=== PATIENT | female | born 1940 | race Caucasian/White ===

== ENCOUNTER → 2020-03-04 11:25 | Outpatient (BNVA) | payer MEDICARE, SELFPAY | PROVIDERS: PCP Internal Medicine; Referring Provider Internal Medicine; Visit Provider Internal Medicine Cardiovascular Disease | DX: I25.10 Atherosclerotic heart disease of native coronary artery without angina pectoris (principal) | CPT/HCPCS: 99212 ==

== ENCOUNTER → 2020-09-16 14:27 | Outpatient (BNVA) | payer MEDICARE, SELFPAY | PROVIDERS: PCP Internal Medicine; Visit Provider Internal Medicine Cardiovascular Disease | DX: I25.10 Atherosclerotic heart disease of native coronary artery without angina pectoris (principal); I10 Essential (primary) hypertension | CPT/HCPCS: 93005; 99212 ==

== ENCOUNTER → 2021-03-30 12:47 | Outpatient (BNVA) | payer MEDICARE, SELFPAY | PROVIDERS: PCP Internal Medicine; Referring Provider Internal Medicine; Visit Provider Internal Medicine Cardiovascular Disease | DX: I25.10 Atherosclerotic heart disease of native coronary artery without angina pectoris (principal); I10 Essential (primary) hypertension | CPT/HCPCS: 99212 ==

== ENCOUNTER 2021-05-19 13:28 | Outpatient (REF) | payer MEDICARE, SELFPAY | END 2021-05-19 13:29 | disposition home or self-care (01) | LOC: HO.LAB 13:28 | PROVIDERS: PCP Internal Medicine; Visit Provider Internal Medicine | DX: Z20.822 Contact with and (suspected) exposure to COVID-19 (principal); R09.89 Other specified symptoms and signs involving the circulatory and respiratory systems | CPT/HCPCS: U0003; U0005 ==

== ENCOUNTER 2021-11-13 10:21 | Outpatient (REF) | payer MEDICARE, SELFPAY ==
[2021-11-13 13:31] LABS: MANUAL DIFF FLAG NO
[2021-11-13 13:37] LABS: Basophils Absolute Auto 0.1 X10*3/uL (0.0-0.2); Basophils Percent Auto 0.8 % (0-2); Eosinophils Absolute Auto 0.3 X10*3/uL (0.0-0.4); Hematocrit 38.4 % (37.0-47.0); Hemoglobin 12.5 g/dl (12.0-16.0); Imm Gran Abs Auto 0.02 X10*3/uL (0.00-0.03); Imm Gran Pct Auto 0.3 % (0.0-0.4); Lymphocytes Absolute Auto 1.2 X10*3/uL (1.2-4.9); Lymphocytes Percent Auto 15.7 % (20-40); Mean Corpuscular HGB Conc 32.6 g/dl (31.0-35.0); Mean Corpuscular Hemoglobin 27.8 pg (27.0-33.0); Mean Corpuscular Volume 85.5 fL (80.0-98.0); Mean Platelet Volume 10.7 fL (9.4-12.3); Monocytes Absolute Auto 0.6 X10*3/uL (0.1-1.2); Monocytes Percent Auto 7.3 % (2-11); Neutrophils Absolute Auto 5.7 x10*3/uL (2.0-8.3); Neutrophils Percent Auto 71.9 % (45-73); Platelet Count 297 X10*3/uL (160-400); Red Blood Count 4.49 X10*6/uL (4.20-5.50); Red Cell Distribution Width 13.7 % (11.0-16.0); White Blood Count 7.8 X10*3/uL (4.8-10.8)
[2021-11-13 13:56] LABS: B Type Natriuretic Peptide 220 pg/mL (<100)
[2021-11-13 13:59] LABS: Alanine Aminotransferase 13 U/L (0-31); Alkaline Phosphatase 95 U/L (39-117); Anion Gap 14 (12-20); Aspartate Amino Transferase 18 U/L (5-31); Bilirubin Total 0.9 mg/dL (0.0-1.0); Blood Urea Nitrogen 20 mg/dL (9-16); Calcium 9.6 mg/dL (8.4-10.2); Carbon Dioxide 25 mmol/L (22-29); Chloride 106 mmol/L (96-108); Cholesterol 126 mg/dL; Estimated Glomerular Filt Rate > 60; Glucose Fasting 100 mg/dL (60-99); HDL Cholesterol 48 mg/dL; LDL Cholesterol Calculated 60 mg/dl; Potassium 5.2 mmol/L (3.3-5.1); Sodium 140 mmol/L (135-145); Triglycerides 90 mg/dL
[2021-11-13 14:12] LABS: Thyroid Stimulating Hormone 2.55 uIU/mL (0.32-4.0)
== END 2021-11-13 10:22 | disposition home or self-care (01) ==
LOC: HO.WFDLDS 10:21
PROVIDERS: Nurse Practitioner Family; Visit Provider Internal Medicine
DX: Z00.00 Encounter for general adult medical examination without abnormal findings (principal); Z13.0 Encounter for screening for diseases of the blood and blood-forming organs and certain disorders involving the immune mechanism; Z13.9 Encounter for screening, unspecified; R06.02 Shortness of breath
CPT/HCPCS: 36415; 80053; 80061; 83880; 84443; 85025

== ENCOUNTER → 2021-12-15 10:16 | Outpatient (REF) | payer MEDICARE, SELFPAY ==
--- NOTE | 2021-12-15 10:19 | CA_ITS ---
Transthoracic Echocardiogram Patient (Last, First, Middle): Fabio Anaya G Gender: Female Date of : 1940 Age: 81 Procedure Date: 12/15/2021 Procedure Type: Transthoracic Echocardiogram Location: OP Height: 160.02 cm Weight: 62.6 kg BSA: 1.65 m2 Heart Rate: 53 bpm BP: 130 / 50 mmHg Chore Tender: DENNISE Referring MD: Dia Chairez PICTURE PAINTER-Rivka Symptoms: R06.02 - Shortness of breath Study Quality: Adequate ECG Rhythm: Bradycardia Conclusions: - The left ventricular systolic function is normal. The calculated ejection fraction is 64% by biplane method. - The basal inferior segment is hypokinetic. - There is mild mitral annular calcification. Findings Left Ventricle Normal left ventricular cavity size. The left ventricular systolic function is normal. The calculated ejection fraction is 64% by biplane method. E/E prime ratio is >15, consistent with elevated filling pressures. Evidence suggests grade I (mild) diastolic dysfunction. There is mild septal and mild basal asymmetric hypertrophy. Wall Motion Rest Echo Findings The basal inferior segment is hypokinetic. Right Ventricle Normal right ventricular cavity size and systolic function. Atria The left atrium is moderately dilated. The right atrium is normal in size. Aortic Valve There is a normal trileaflet aortic valve. There is no aortic valve stenosis. There is trace (trivial) aortic valve regurgitation. Mitral Valve There is mild mitral annular calcification. There is trace mitral valve regurgitation. There is no mitral valve stenosis. Pulmonic Valve The pulmonic valve is likely normal. Tricuspid Valve There is mild tricuspid valve regurgitation. There is no evidence of pulmonary hypertension. Great Vessels The asc aorta is normal in size. Small plaque is seen in the sino tubular ridge. Venous The inferior vena cava is normal in size and collapses greater than 50% with inspiration. Pericardium/Pleural There is no evidence of pericardial effusion. Prior Study Comparison Changes noted compared to prior study dated: 03/05/2016. Improved LVEF. Wall motion abnormalities improved. Measurements 2D Linear Measurements IVSd: 1.14 0.6-0.9/0.6-1.0 cm LVIDd: 3.85 3.9-5.3/4.2-5.9 cm LVIDd Index: 2.33 2.4-3.2/2.2-3.1 cm/m2 LVIDs: 2.19 2.0-3.6 cm LVPWd: 1.07 0.7-1.1 cm LA Diam: 2.90 2.7-3.8/3.0-4.0 cm LAIDs Index: 1.76 1.5-2.3 cm/m2 LV Mass: 172.10 67-162/88-224 g LV Mass Index: 104.30 43-95/49-115 g/m2 LVOT Diam: 1.90 3.0+(-)1.3 cm 2D Systolic Function EF 4C: 70.50 >55% EF 2C: 55.10 >55% EF BiP: 64.30 >55% Mitral Valve MV Pk E: 0.84 MV PK A: 1.15 MV Decel Time: 234.00 E/A: 0.70 E'Lateral: 5.66 E'Medial: 5.22 E/E' Med: 16.10 E/E' Lat: 14.80 PHT: 69.00 MVA PHT: 3.19 Decel [place]: 3.58 Aortic Valve AoV Pk Thomas: 1.50 AoV Mn Thomas: 0.99 AoV VTI: 0.37 AoV Pk Grad: 9.00 Aov Mn Grad: 4.00 IRIS Cont.VTI: 2.13 LVOT LVOT Pk Thomas: 1.15 LVOT Mn Thomas: 0.79 LVOT VTI: 0.28 LVOT Pk Grad: 5.00 LVOT Mn Grad: 3.00 LVOT Diam: 1.90 LVOT Area: 2.84 Diastolic Function MV Pk E: 0.84 MV Pk A: 1.15 E/A: 0.70 E'Medial: 5.22 E/E' Med: 16.10 E' Laterial: 5.66 E/E' Lat: 14.80 Right Ventricle TAPSE (mm): 21.20 TVS' Thomas: 11.40 Tricuspid Valve TR Pk Thomas: 2.42 TR Pk Grad: 23.00 RA Press: 3.00 RVSP: 26.00 Great Vessels Aorta Sinus of Valsalva: 3.10 2.0-3.5 cm Ao Asc: 2.90 2.1-3.4 cm Pulmonary Valve PV Pk Thomas: 0.92 Peak PV Grad: 3.00 Updated in Other Vendor System with Status of Final Aris Kruger MD electronically signed on 12/16/2021 11:32:35 AM with status of Final
== END ==
LOC: HO.CARD 10:16
PROVIDERS: Visit Provider Nurse Practitioner Family
DX: R06.02 Shortness of breath (principal); I25.10 Atherosclerotic heart disease of native coronary artery without angina pectoris; I10 Essential (primary) hypertension
CPT/HCPCS: 93306

== ENCOUNTER → 2022-04-06 10:48 | Outpatient (BNVA) | payer MEDICARE, SELFPAY | PROVIDERS: PCP Internal Medicine; Referring Provider Internal Medicine; Visit Provider Internal Medicine Cardiovascular Disease | DX: I25.10 Atherosclerotic heart disease of native coronary artery without angina pectoris (principal); R06.02 Shortness of breath; R00.1 Bradycardia, unspecified | CPT/HCPCS: 99212 ==

== ENCOUNTER 2022-12-07 13:53 | Outpatient (AMB) | payer MEDICARE, SELFPAY ==
[2022-12-07 13:57] VITALS: BP 138/50; PULSE 53; O2SAT 97; BMI 23.0
--- NOTE | 2022-12-07 13:57 | A.OFFPC_ITS ---
Vital Signs 12/07/22 13:57 Height 5 ft 3 in Weight 130 lb BMI 23.0 BP 138/50 L Blood Pressure Location Lt brachial Position Sitting Pulse 53 Pulse Source Pulse Oximeter Pulse Oximetry (%) 97 Oxygen Delivery Method Room Air Intake Visit Reasons: discuss personal matters Hand Zipper Trimmer: Not Required per policy Accompanied by: Self / Same As Patient Allergies No Known Allergies Allergy (Mild, Verified 12/07/22 13:58) NONE Medication List - Last Reconciled 12/07/22 by Oleg Juarez MD alprazolam 0.5 mg PO Q6H PRN amlodipine 5 mg PO DAILY aspirin (Adult Low Dose Aspirin) 81 mg PO DAILY atorvastatin 80 mg PO DAILY ezetimibe 10 mg PO DAILY 90 days fluticasone propionate 50 mcg/actuation (Children's Flonase Allergy Relief) 1 spray intranasal BID hydrochlorothiazide 12.5 mg PO DAILY metoprolol succinate ER 50 mg (1/2 x 100 mg) PO DAILY 90 days omeprazole 20 mg PO DAILY timolol maleate 0.5% 1 drp ophthalmic (eye) DAILY Tobacco use date assessed: 12/07/22 Fall risk assessment: 2 + Falls in past year Last assessed Fall Risk: 12/07/22 Dental Screening Dental Screen Date: 12/07/22 Did you have a dental visit in the last 12 months?: Yes Did you have a dental problem in the last 6 months where you did not have access to dental care?: No Was dental information given to patient?: Patient has dentist HPI discuss personal matters HPI Details has neuropathy both feet according to podiatry; has low back pain too PFSH Medical History Allergic rhinitis HTN (hypertension) CAD (coronary artery disease) Bilateral carotid artery disease Hyperlipidemia Surgical History Stented coronary artery Hx of cardiac cath Hx of endoscopy Hx of colonoscopy Hx of eye surgery Hx of foot surgery Family History Mother CVD (cardiovascular disease) Social History Housing: House Alcohol intake: current Alcohol intake frequency: a few times a week Patient Tobacco Use Status: Former Tobacco user Quit Date: Years Smoked: 40 +/- e-Cigarette/Vaping Use: Never Used Second Hand Smoke Exposure: No service: No Current occupational status: retired Cognitive needs: No Hearing needs: No Vision needs: No Questionnaire PHQ-9 Over the last 2 weeks, how often have you been bothered by any of the following problems? 1. Little interest or pleasure in doing things: not at all 2. Feeling down, depressed, or hopeless: not at all 3. Trouble falling or staying asleep, or sleeping too much: not at all 4. Feeling tired or having little energy: not at all 5. Poor appetite or overeating: not at all 6. Feeling bad about yourself - or that you are a failure or have let yourself or your family down: not at all 7. Trouble concentrating on things, such as reading the newspaper or watching television: not at all 8. Moving or speaking so slowly that other people could have noticed. Or the opposite - being so fidgety or restless that you have been moving around a lot more than usual: not at all 9. Thoughts that you would be better off or of hurting yourself in some way: not at all Total score: 0 Depression Screening Interpretation: Negative 85802 - PHQ-9 Billing: Yes Source: Developed by Drs. Jun Bo, Kim Coello, Zach Corral and colleagues, with an educational jameel from [employer]. Thrive Questionnaire Date Thrive assessed: 12/07/22 I am a: Patient What is your living situation today?: I have a steady place to live Within the past 12 months, did the food you bought not last and you didn't have the money to get more?: Never true Within the past 12 months, did you worry whether your food would run out before you got money to buy more?: Never true Do you have trouble paying for medicines?: No Do you have trouble getting transportation to medical appointments?: No Do you have trouble paying your heating and electricity bill?: No Do you have trouble taking care of your child, family member or friend?: No Do you have trouble with day-to-day activities such as bathing, preparing meals, shopping, managing finances, etc.?: No Are you currently unemployed and looking for a job?: No Are you interested in more education?: No Please select the resources that you would like help with: None AUDIT C Alcohol Use Questionnaire (AUDIT-C) 1. How often do you have a drink containing alcohol?: Monthly or less 2. How many drinks containing alcohol do you have on a typical day when you are drinking?: 1 or 2 3. How often do you have six or more drinks on one occasion?: Never Total Score: 1 Score Reviewed/Action Taken: Yes LAURIE-7 AMB Questionnaire LAURIE-7 Date LAURIE - 7 assessed: 12/07/22 Feeling nervous, anxious, or on edge: 0 = Not at all Not being able to stop or control worryin = Not at all Worrying too much about different things: 0 = Not at all Trouble relaxin = Not at all Being so restless that it is hard to sit still: 0 = Not at all Becoming easily annoyed or irritable: 0 = Not at all Feeling afraid as if something awful might happen: 0 = Not at all Total LAURIE-7 score (0-4 normal; 5-9 mild; 10-14 moderate; 15-21 severe): 0 Source: Developed by Drs. Jun Bo, iKm Coello, Zach Corral and colleagues, with an educational jameel from [employer]. LAURIE-7 Assessment Billing LAURIE-7 Assessment Tool: LAURIE-7 Assessment 74484 Review of Systems Const Denies chills, Denies headache(s) and Denies weight loss ENT Denies headache(s) Card Denies chest pain, Denies syncope, Denies irregular heart rhythm and Denies dyspnea Resp Denies chest congestion, Denies cough and Denies dyspnea GI Denies abdominal pain, Denies change in stool character, Denies nausea and Denies vomiting Musc Denies deformity and Denies joint swelling Neuro Denies syncope and Denies headache(s) Physical exam (Primary Care) Vital Signs: Last Vital Signs Pulse 53 12/07/22 13:57 BP 138/50 L 12/07/22 13:57 Pulse Ox 97 12/07/22 13:57 Oxygen Delivery Method Room Air 12/07/22 13:57 BMI result Body Mass Index 23.0 Tobacco/Smoking Status: Tobacco use Status Tobacco use date assessed 12/07/22 12/07/22 13:59 Patient Tobacco Use Status Former Tobacco user 12/07/22 13:59 e-Cigarette/Vaping Use Never Used 12/07/22 13:59 PHQ-9: PHQ-9 Score PHQ-9: Total score 0 12/07/22 13:59 Depression Screening Interpretation: Negative Thrive Assessment: Date of Thrive Assessment Date Thrive assessed 12/07/22 12/07/22 13:59 Const General: cooperative, comfortable, no acute distress and alert Neck Neck: Yes no lymphadenopathy Thyroid: Thyroid normal Resp Effort & Inspection: normal respiratory effort Auscultation: clear to auscultation bilaterally Percussion: percussion normal Cardio Jugular venous distension: no JVD Palpation: normal PMI Rate: regular rate Rhythm: regular rhythm Heart sounds: S1 normal heart sound present and S2 normal heart sound present GI Inspection: Yes normal to inspection Palpation (GI): No hepatosplenomegaly present Skin General skin exam: no rashes or lesions noted Extrem General: Yes no clubbing, cyanosis or edema Assessment and Plan Assessment & Plan (1) Peripheral neuropathy: Code(s): G62.9 - Polyneuropathy, unspecified Plan: labs and xr Orders: Orders Lipid Panel Today E78.5 - Hyperlipidemia, unspecified XR lumbar spine 2-3V Today M54.9 - Dorsalgia, unspecified Thyroid Stimulating Hormone Today E03.9 - Hypothyroidism, unspecified Complete Blood Count Auto Diff Today D64.9 - Anemia, unspecified Comprehensive [place]. Panel Fast Today N28.9 - Disorder of kidney and ureter, unspecified Coding Level of Care Code Est Pt Level 3 (19670) Diagnoses Peripheral neuropathy G62.9 Additional Codes LAURIE-7 Assessment Billing - LAURIE-7 Assessment Tool: LAURIE-7 Assessment 36540 ([id number])
== END 2022-12-07 14:50 | disposition home or self-care (01) ==
PROVIDERS: PCP Internal Medicine; Visit Provider Internal Medicine
DX: G62.9 Polyneuropathy, unspecified (principal)
CPT/HCPCS: 99213

== ENCOUNTER 2022-12-13 12:26 | Outpatient (REF) | payer MEDICARE, SELFPAY ==
--- NOTE | ~2022-12-13 | XR_ITS ---
EXAMINATION: XR LUMBOSACRAL SPINE CLINICAL INFORMATION: Back pain COMPARISON: None available. TECHNIQUE: Three views of the lumbosacral spine. FINDINGS: Extensive atherosclerotic calcifications in the abdominal aorta. S-shaped thoracolumbar scoliosis. Bones are diffusely demineralized. 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 Degenerative changes in the imaged lower thoracic spine. Advanced multilevel degenerative changes in the lumbar spine with loss of disc space height most notable at L3-L4, L4-L5 and L5-S1. Grade 1 anterolisthesis of L5 on S1. 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
[2022-12-13 12:42] LABS: MANUAL DIFF FLAG NO
[2022-12-13 12:48] LABS: Basophils Absolute Auto 0.1 X10*3/uL (0.0-0.2); Basophils Percent Auto 1.2 % (0-2); Eosinophils Absolute Auto 0.2 X10*3/uL (0.0-0.4); Eosinophils Percent Auto 3.6 % (0-4); Hematocrit 36.1 % (37.0-47.0); Hemoglobin 11.5 g/dl (12.0-16.0); Imm Gran Abs Auto 0.02 X10*3/uL (0.00-0.03); Imm Gran Pct Auto 0.3 % (0.0-0.4); Lymphocytes Absolute Auto 1.4 X10*3/uL (1.2-4.9); Lymphocytes Percent Auto 21.4 % (20-40); Mean Corpuscular HGB Conc 31.9 g/dl (31.0-35.0); Mean Corpuscular Hemoglobin 27.4 pg (27.0-33.0); Mean Platelet Volume 10.4 fL (9.4-12.3); Monocytes Absolute Auto 0.5 X10*3/uL (0.1-1.2); Monocytes Percent Auto 7.9 % (2-11); Neutrophils Absolute Auto 4.4 x10*3/uL (2.0-8.3); Neutrophils Percent Auto 65.6 % (45-73); Platelet Count 239 X10*3/uL (160-400); White Blood Count 6.7 X10*3/uL (4.8-10.8)
[2022-12-13 14:10] LABS: Alanine Aminotransferase 12 U/L (0-31); Albumin Level 3.9 g/dL (3.5-5.0); Alkaline Phosphatase 90 U/L (39-117); Anion Gap 11 (12-20); Aspartate Amino Transferase 19 U/L (5-31); Bilirubin Total 0.8 mg/dL (0.0-1.0); Blood Urea Nitrogen 17 mg/dL (9-16); Calcium 9.6 mg/dL (8.4-10.2); Carbon Dioxide 27 mmol/L (22-29); Chloride 107 mmol/L (96-108); Cholesterol 127 mg/dL (<200); Estimated Glomerular Filt Rate > 60; Glucose Fasting 89 mg/dL (60-99); HDL Cholesterol 54 mg/dL (>40); LDL Cholesterol Calculated 61 mg/dL (<100); Potassium 4.7 mmol/L (3.3-5.1); Sodium 140 mmol/L (135-145); Triglycerides 60 mg/dL (<150)
[2022-12-13 14:39] LABS: Thyroid Stimulating Hormone 2.56 uIU/mL (0.32-4.0)
== END 2022-12-13 12:27 | disposition home or self-care (01) ==
LOC: HO.XRAY 12:26
PROVIDERS: PCP Internal Medicine; Visit Provider Internal Medicine
DX: M54.9 Dorsalgia, unspecified (principal); E03.9 Hypothyroidism, unspecified; N28.9 Disorder of kidney and ureter, unspecified; D64.9 Anemia, unspecified; E78.5 Hyperlipidemia, unspecified
CPT/HCPCS: 36415; 72100; 80053; 80061; 84443; 85025

== ENCOUNTER 2023-01-27 10:22 | Outpatient (AMB) | payer MEDICARE, SELFPAY ==
--- NOTE | 2023-01-27 10:30 | A.OFFVIS_ITS ---
Intake Vital Signs 01/27/23 10:31 Height 5 ft 3 in Weight 136 lb 10.986 oz BMI 24.2 BP 120/76 Blood Pressure Location Lt brachial Position Sitting Pulse 66 Intake Visit Reasons: follow up per patient Intake Note: Follow-up with ekg c/o sob Manager Mass Required: No Allergies No Known Allergies Allergy (Mild, Verified 12/07/22 13:58) NONE Medication List - Last Reconciled 01/27/23 by Timmy Carr MD alprazolam 0.5 mg PO Q6H PRN amlodipine 5 mg PO DAILY aspirin (Adult Low Dose Aspirin) 81 mg PO DAILY atorvastatin 80 mg PO DAILY ezetimibe 10 mg PO DAILY 90 days fluticasone propionate 50 mcg/actuation (Children's Flonase Allergy Relief) 1 spray intranasal BID hydrochlorothiazide 12.5 mg PO DAILY meloxicam 15 mg PO DAILY metoprolol succinate ER 50 mg (1/2 x 100 mg) PO DAILY 90 days omeprazole 20 mg PO DAILY timolol maleate 0.5% 1 drp ophthalmic (eye) DAILY HPI HPI Comments History of Present Illness Details Fabio comes for follow-up. She continues to have symptoms exertional shortness of breath despite reducing metoprolol. Heart rate today is 64 at rest. She said there is no improvement symptoms. Symptoms are mostly with exertion only. She is able to only do limited work. Denies any exertional chest pain. No orthopnea, PND, leg edema. No lightheadedness, syncope. Takes all her medications. Denies any prolonged palpitations irregular heartbeat. [facility] Medical History Allergic rhinitis HTN (hypertension) CAD (coronary artery disease) Bilateral carotid artery disease Hyperlipidemia Surgical History Stented coronary artery Hx of cardiac cath Hx of endoscopy Hx of colonoscopy Hx of eye surgery Hx of foot surgery Family History Mother CVD (cardiovascular disease) Social History Housing: House Alcohol intake: current Alcohol intake frequency: a few times a week Patient Tobacco Use Status: Former Tobacco user Quit Date: Years Smoked: 40 +/- e-Cigarette/Vaping Use: Never Used Second Hand Smoke Exposure: No service: No Current occupational status: retired Cognitive needs: No Hearing needs: No Vision needs: No Review of Systems Const Denies chills, Denies fatigue, Denies fever(s), Denies frequent falls, Denies weakness, Denies weight gain and Denies weight loss ENT Denies dizziness Card Denies chest pain, Denies leg edema, Denies lightheadedness, Denies palpitations, Denies dyspnea, Denies dyspnea on exertion, Denies orthopnea and Denies other (loss of consciousness) Resp Denies cough, Denies dyspnea and Denies dyspnea on exertion GI Denies hematochezia and Denies change in stool character Musc Denies abnormal gait, Denies muscle weakness, Denies numbness, Denies radiating pain into limb and Denies tingling Neuro Denies abnormal gait, Denies dizziness, Denies frequent falls, Denies numbness, Denies tingling and Denies weakness Endo Denies fatigue and Denies palpitations Physical Exam Vital Signs: Last Vital Signs Pulse 66 01/27/23 10:31 BP 120/76 01/27/23 10:31 BMI result Body Mass Index 24.2 Const General: cooperative, comfortable, no acute distress, alert, awake and well groomed Nutritional Appearance: average body habitus Orientation/consciousness: patient oriented x3 Limitations: no limitations Neck Neck: Yes trachea midline, Yes supple and Yes no JVD Carotids: bruit bilateral Resp Effort & Inspection: normal respiratory effort Auscultation: clear to auscultation bilaterally Cardio Jugular venous distension: no JVD Palpation: normal PMI Rate: regular rate Rhythm: regular rhythm Heart sounds: S1 normal heart sound present and S2 normal heart sound present GI Auscultation: normal bowel sounds Skin General skin exam: no rashes or lesions noted and ecchymosis Neuro General: patient oriented x3 and no focal motor deficits Extrem General: No clubbing, No cyanosis and Yes pedal edema (Left lower extremity) Psych Appearance: grossly normal Office Procedures EKG Details: EKG shows normal sinus rhythm with poor R-wave progression most likely due to lead placement, no acute ST T wave changes [id number], Complete Assessment & Plan Assessment & Plan (1) Shortness of breath: Code(s): R06.02 - Shortness of breath Plan: Patient with limiting exertional shortness of breath without any signs or symptoms of heart failure. Need to rule out myocardial ischemia and would suggest a vasodilating myocardial perfusion imaging. Will also obtain echocardiogram to 12 LV systolic and diastolic function. Holter monitor to evaluate for chronotropic competence. Workup and indication for was discussed with her. S also possible this is due to advancing age and deconditioning related to reduced exercise capacity related to neuropathy and back issues. (2) CAD (coronary artery disease): Code(s): I25.10 - Atherosclerotic heart disease of [place] coronary artery without angina pectoris Plan: Diffuse atherosclerotic disease with prior CAD with multiple PCIs as well as carotid disease. Continue aggressive risk factor modification. Continue low- dose aspirin therapy for life. Blood pressure is currently well optimized. Continue the same. Continue high-intensity statin therapy along with ezetimibe therapy to target goal LDL less than 70 mg/dL. Importance of medical therapy was discussed. Follow up in the clinic in 6 months time, sooner p.r.n.. Thank you for allowing me to partake in the care Orders: Orders CA lexiscan stress w regine Today R06.02 - Shortness of breath CA echo transthoracic complete Today R06.02 - Shortness of breath ECG holter monitor 48 hour Today R06.02 - Shortness of breath Coding Level of Care Code Est Pt Level 4 (57895) Diagnoses Shortness of breath R06.02 CAD (coronary artery disease) I25.10 CPT Codes EKG - CPT: 69437-[id number], Complete ([id number])
[2023-01-27 10:31] VITALS: BP 120/76; PULSE 66; BMI 24.2
== END 2023-01-27 11:02 | disposition home or self-care (01) ==
PROVIDERS: PCP Internal Medicine; Visit Provider Internal Medicine Cardiovascular Disease
DX: R06.02 Shortness of breath (principal); I25.10 Atherosclerotic heart disease of native coronary artery without angina pectoris
CPT/HCPCS: 93010; 99214

== ENCOUNTER → 2023-01-27 10:22 | Outpatient (BNVA) | payer MEDICARE, SELFPAY | PROVIDERS: PCP Internal Medicine; Visit Provider Internal Medicine Cardiovascular Disease | DX: I25.10 Atherosclerotic heart disease of native coronary artery without angina pectoris (principal); R06.02 Shortness of breath | CPT/HCPCS: 93005; 99212 ==

== ENCOUNTER 2023-05-13 12:47 | Outpatient (AMB) | payer OTHER, SELFPAY ==
[2023-05-13 12:50] VITALS: BP 132/60; PULSE 60; O2SAT 99; BMI 24.3
--- NOTE | 2023-05-13 12:50 | MHC.PC.OV ---
Vital Signs 05/13/23 12:50 Height 5 ft 3 in Weight 137 lb BMI 24.3 BP 132/60 Blood Pressure Location Lt brachial Position Sitting Pulse 60 Pulse Source Pulse Oximeter Pulse Oximetry (%) 99 Oxygen Delivery Method Room Air Intake Visit Reasons: Follow Up Lsat Instructor Required: No Hyperion Analyst: Present Accompanied by: Spouse Allergies No Known Allergies Allergy (Mild, Verified 05/13/23 12:51) NONE Medication List - Last Reconciled 05/16/23 by Oleg Juarez MD alprazolam 0.5 mg PO Q6H PRN amlodipine 5 mg PO DAILY aspirin (Adult Low Dose Aspirin) 81 mg PO DAILY atorvastatin 80 mg PO DAILY ezetimibe 10 mg PO DAILY 90 days fluticasone propionate 50 mcg/actuation (Children's Flonase Allergy Relief) 1 spray intranasal BID hydrochlorothiazide 12.5 mg PO DAILY meloxicam 15 mg PO DAILY metoprolol succinate ER 50 mg (1/2 x 100 mg) PO DAILY 90 days omeprazole 20 mg PO DAILY sennosides (Senna Lax) 17.2 mg (2 x 8.6 mg) PO BEDTIME PRN 10 days timolol maleate 0.5% 1 drp ophthalmic (eye) DAILY Tobacco use date assessed: 05/13/23 Fall risk assessment: No Falls in past year Last assessed Fall Risk: 05/13/23 Dental Screening Dental Screen Date: 05/13/23 Did you have a dental visit in the last 12 months?: Yes Did you have a dental problem in the last 6 months where you did not have access to dental care?: No Was dental information given to patient?: Patient has dentist HPI Follow Up HPI Details HTN hyperlip and chronic anxiety; doing well and compliant [facility] Medical History Allergic rhinitis HTN (hypertension) CAD (coronary artery disease) Bilateral carotid artery disease Hyperlipidemia Surgical History Stented coronary artery Hx of cardiac cath Hx of endoscopy Hx of colonoscopy Hx of eye surgery Hx of foot surgery Family History Mother CVD (cardiovascular disease) Social History Housing: House Alcohol intake: current Alcohol intake frequency: a few times a week Patient Tobacco Use Status: Former Tobacco user Quit Date: Years Smoked: 40 +/- e-Cigarette/Vaping Use: Never Used Second Hand Smoke Exposure: No service: No Current occupational status: retired Cognitive needs: No Hearing needs: No Vision needs: No Questionnaire PHQ-9 Over the last 2 weeks, how often have you been bothered by any of the following problems? 1. Little interest or pleasure in doing things: not at all 2. Feeling down, depressed, or hopeless: not at all 3. Trouble falling or staying asleep, or sleeping too much: not at all 4. Feeling tired or having little energy: not at all 5. Poor appetite or overeating: not at all 6. Feeling bad about yourself - or that you are a failure or have let yourself or your family down: not at all 7. Trouble concentrating on things, such as reading the newspaper or watching television: not at all 8. Moving or speaking so slowly that other people could have noticed. Or the opposite - being so fidgety or restless that you have been moving around a lot more than usual: not at all 9. Thoughts that you would be better off or of hurting yourself in some way: not at all Total score: 0 Depression Screening Interpretation: Negative Depression Screening Done: Yes 24504 - PHQ-9 Billing: Yes Source: Developed by Drs. Jun Bo, Kim Coello, Zach Corral and colleagues, with an educational jameel from [employer]. Thrive Questionnaire Date Thrive assessed: 05/13/23 I am a: Patient What is your living situation today?: I have a steady place to live Within the past 12 months, did the food you bought not last and you didn't have the money to get more?: Never true Within the past 12 months, did you worry whether your food would run out before you got money to buy more?: Never true Do you have trouble paying for medicines?: No Do you have trouble getting transportation to medical appointments?: No Do you have trouble paying your heating and electricity bill?: No Do you have trouble taking care of your child, family member or friend?: No Do you have trouble with day-to-day activities such as bathing, preparing meals, shopping, managing finances, etc.?: No Are you currently unemployed and looking for a job?: No Are you interested in more education?: No Please select the resources that you would like help with: None THRIVE Score: 0 AUDIT C Alcohol Use Questionnaire (AUDIT-C) 1. How often do you have a drink containing alcohol?: Monthly or less 2. How many drinks containing alcohol do you have on a typical day when you are drinking?: 1 or 2 3. How often do you have six or more drinks on one occasion?: Never Total Score: 1 Score Reviewed/Action Taken: Yes LAURIE-7 AMB Questionnaire LAURIE-7 Date LAURIE - 7 assessed: 05/13/23 Source: Developed by Drs. Jun Bo, Kim Coello, Zach Corral and colleagues, with an educational jameel from [employer]. Review of Systems Const Denies chills, Denies headache(s) and Denies weight loss ENT Denies headache(s) Card Denies chest pain, Denies syncope, Denies irregular heart rhythm and Denies dyspnea Resp Denies chest congestion, Denies cough and Denies dyspnea GI Denies abdominal pain, Denies change in stool character, Denies nausea and Denies vomiting Musc Denies deformity and Denies joint swelling Neuro Denies syncope and Denies headache(s) Physical exam (Primary Care) Vital Signs: Last Vital Signs Pulse 60 05/13/23 12:50 BP 132/60 05/13/23 12:50 Pulse Ox 99 05/13/23 12:50 Oxygen Delivery Method Room Air 05/13/23 12:50 BMI result Body Mass Index 24.3 Tobacco/Smoking Status: Tobacco use Status Tobacco use date assessed 05/13/23 05/13/23 12:52 Patient Tobacco Use Status Former Tobacco user 05/13/23 12:52 e-Cigarette/Vaping Use Never Used 05/13/23 12:52 PHQ-9: PHQ-9 Score PHQ-9: Total score 0 05/13/23 12:52 Depression Screening Interpretation: Negative Thrive Assessment: Date of Thrive Assessment Date Thrive assessed 05/13/23 05/13/23 12:52 Const General: cooperative, comfortable, no acute distress and alert Neck Neck: Yes no lymphadenopathy Thyroid: Thyroid normal Resp Effort & Inspection: normal respiratory effort Auscultation: clear to auscultation bilaterally Percussion: percussion normal Cardio Jugular venous distension: no JVD Palpation: normal PMI Rate: regular rate Rhythm: regular rhythm Heart sounds: S1 normal heart sound present and S2 normal heart sound present GI Inspection: Yes normal to inspection Palpation (GI): No hepatosplenomegaly present Skin General skin exam: no rashes or lesions noted Extrem General: Yes no clubbing, cyanosis or edema Assessment and Plan Assessment & Plan (1) HTN (hypertension): Code(s): I10 - Essential (primary) hypertension Plan: stable; same rx (2) Hyperlipidemia: Code(s): E78.5 - Hyperlipidemia, unspecified Plan: stable; same rx (3) Anxiety: Code(s): F41.9 - Anxiety disorder, unspecified Plan: stable; same rx Orders: Orders Lipid Panel Today E78.5 - Hyperlipidemia, unspecified Comprehensive [place]. Panel Fast Today N28.9 - Disorder of kidney and ureter, unspecified Thyroid Stimulating Hormone Today E03.9 - Hypothyroidism, unspecified Coding Level of Care Code Est Pt Level 4 (27517) Diagnoses HTN (hypertension) I10 Hyperlipidemia E78.5 Anxiety F41.9
== END 2023-05-13 13:39 | disposition home or self-care (01) ==
PROVIDERS: PCP Internal Medicine; Visit Provider Internal Medicine
DX: I10 Essential (primary) hypertension (principal); E78.5 Hyperlipidemia, unspecified; F41.9 Anxiety disorder, unspecified
CPT/HCPCS: 99214

== ENCOUNTER → 2023-06-20 08:42 | Outpatient (REF) | payer MEDICARE, SELFPAY ==
--- NOTE | ~2023-06-20 | NM_ITS ---
Myocardial perfusion study Indication: Shortness of breath evaluate for myocardial ischemia Technique: The patient was brought in for a Lexiscan perfusion study on 06/20/2023. Patient performed low-level exercise and was injected 0.4 mg of Lexiscan intravenously. Within a minute of injection, 25 mCi of sestamibi was given intravenously. Images were obtained using the SPECT gamma camera interlaced with the gating device. Images were obtained in supine position. Resting perfusion study was performed on 06/30/2023. Patient was administered 25 mCi of sestamibi intravenously at rest. Images were then obtained in supine position. Images obtained with and without CT attenuation. Total DLP 108 mGy-cm Images were processed with the software and compared side to side in short axis, horizontal long axis and vertical long axis views. Findings: The stress perfusion study showed non attenuated images show normal uptake of radiotracer in all segments of LV myocardium. Attenuation corrected images show mildly reduced uptake in the apex of the LV myocardium. The gated study shows normal LV systolic function with calculated LVEF of 72%. LV cavity is normal in size. The gated study shows normal systolic wall thickening and contraction of segments. Resting study shows no change in perfusion pattern compared to stress perfusion study. Gating at rest reveals normal systolic wall motion with ejection fraction at 76%. The findings are consistent with normal myocardial perfusion. NM/NM regine perf SPECT rest & str Impression: 1. Myocardial perfusion imaging study shows normal myocardial perfusion 2. Gated LVEF is 72% 3. Transient ischemic dilatation not present EKG is nondiagnostic for ischemia
--- NOTE | 2023-06-20 08:51 | CA_ITS ---
Transthoracic Echocardiogram Patient (Last, First, Middle): Fabio Anaya G Gender: Female Date of : 1940 Age: 82 Procedure Date: 06/20/2023 Procedure Type: Transthoracic Echocardiogram Location: OP Height: 157.48 cm Weight: 58.97 kg BSA: 1.59 m2 Heart Rate: bpm BP: 118 / 60 mmHg Stapler Machine: Referring MD: Timmy Carr MD Symptoms: R06.02 - Shortness of breath Study Quality: Fair ECG Rhythm: Sinus Conclusions: - The left ventricular systolic function is normal. The calculated ejection fraction is 65% by biplane method. - Evidence suggests grade II (moderate) diastolic dysfunction. - There is moderate mitral annular calcification. - Mild pulmonary hypertension is present. Findings Left Ventricle Normal left ventricular cavity size. There is mildly increased left ventricular wall thickness. The left ventricular systolic function is normal. The calculated ejection fraction is 65% by biplane method. There is no evidence of regional wall motion abnormalities. Evidence suggests grade II (moderate) diastolic dysfunction. Right Ventricle Normal right ventricular cavity size and systolic function. Atria The left atrium is severely dilated. The right atrium is normal in size. Aortic Valve There is a normal trileaflet aortic valve. There is no aortic valve stenosis. There is trace (trivial) aortic valve regurgitation. Mitral Valve There is moderate mitral annular calcification. There is trace mitral valve regurgitation. There is no mitral valve stenosis. Pulmonic Valve The pulmonic valve is likely normal. There is trace pulmonic valve regurgitation. Tricuspid Valve Normal tricuspid valve structure. There is mild tricuspid valve regurgitation. Mild pulmonary hypertension is present. Great Vessels The asc aorta is normal in size. Venous The inferior vena cava is normal in size and collapses greater than 50% with inspiration. Pericardium/Pleural There is no evidence of pericardial effusion. Prior Study Comparison No significant change compared to prior study dated: 12/15/2021. No obvious wall motion abnormality noted. Measurements 2D Linear Measurements IVSd: 1.21 0.6-0.9/0.6-1.0 cm LVIDd: 3.99 3.9-5.3/4.2-5.9 cm LVIDd Index: 2.51 2.4-3.2/2.2-3.1 cm/m2 LVIDs: 2.45 2.0-3.6 cm LVPWd: 1.21 0.7-1.1 cm Ao Root: 2.80 2.1-3.5 cm LA Diam: 3.30 2.7-3.8/3.0-4.0 cm LAIDs Index: 2.08 1.5-2.3 cm/m2 LV Mass: 207.85 67-162/88-224 g LV Mass Index: 130.72 43-95/49-115 g/m2 LVOT Diam: 2.00 3.0+(-)1.3 cm 2D Systolic Function EF 4C: 67.30 >55% EF 2C: 62.90 >55% EF BiP: 65.10 >55% Mitral Valve MV Pk E: 0.95 MV PK A: 1.08 MV Decel Time: 187.00 E/A: 0.90 E'Lateral: 4.57 E'Medial: 5.00 E/E' Med: 18.90 E/E' Lat: 20.70 PHT: 55.00 MVA PHT: 4.00 Decel Weld: 5.07 Aortic Valve AoV Pk Thomas: 1.36 AoV Mn Thomas: 0.85 AoV VTI: 0.41 AoV Pk Grad: 7.00 Aov Mn Grad: 4.00 IRIS Cont.VTI: 1.99 LVOT LVOT Pk Thomas: 0.76 LVOT Mn Thomas: 0.52 LVOT VTI: 0.26 LVOT Pk Grad: 2.00 LVOT Mn Grad: 1.00 LVOT Diam: 2.00 LVOT Area: 3.14 Diastolic Function MV Pk E: 0.95 MV Pk A: 1.08 E/A: 0.90 E'Medial: 5.00 E/E' Med: 18.90 E' Laterial: 4.57 E/E' Lat: 20.70 Right Ventricle TAPSE (mm): 24.00 TVS' Thomas: 15.00 Tricuspid Valve TR Pk Thomas: 3.06 TR Pk Grad: 37.00 RA Press: 3.00 RVSP: 40.00 Great Vessels Aorta Ao Root-2D: 2.80 2.0-3.7 cm Ao Asc: 2.70 2.1-3.4 cm Pulmonary Valve PV Pk Thomas: 0.94 Peak PV Grad: 4.00 Updated in Other Vendor System with Status of Final Aris Kruger MD electronically signed on 06/20/2023 12:46:27 PM with status of Final
--- NOTE | 2023-06-20 08:51 | CA_ITS ---
Acquisition Time: 2023-06-20 09:50:06 Total Exercise Time: 00:02:00 Test Indications: Dyspnea Medications: SEE H Protocol: LEXISCAN Max HR: 100 BPM 72% of Pred: 138 BPM Max BP: 144/062 mmHG Max Work Load: 1.0 METS Pharmacological stress test with Lexiscan injection while sitting and kicking her legs, without anginal symptoms. with isolated PVC, with normotensive response to injection, with nondiagnoistic EKGs. Aminophylline 75mg IVP given to reverse Lexiscan. Nuclear images pending. Tets reviewed with Dr. Camacho. Referred By: Timmy Carr Overread By: Mirian Rao
== END ==
LOC: HO.CARD 08:42
PROVIDERS: PCP Internal Medicine; Visit Provider Internal Medicine Cardiovascular Disease
DX: R06.02 Shortness of breath (principal)
CPT/HCPCS: 78452; 93017; 93306; A9500; J0280; J2785

== ENCOUNTER → 2023-06-20 08:51 | Outpatient (BNV) | payer MEDICARE, SELFPAY | PROVIDERS: PCP Internal Medicine; Visit Provider Internal Medicine | DX: R06.02 Shortness of breath (principal) | CPT/HCPCS: 78452; 93016; 93018; 93350 ==

== ENCOUNTER 2023-07-27 10:53 | Outpatient (AMB) | payer MEDICARE, SELFPAY ==
--- NOTE | 2023-07-27 11:15 | MHC.PC.OV ---
Intake Visit Reasons: constipation, cramping, liquid stool Allergies No Known Allergies Allergy (Mild, Verified 05/13/23 12:51) NONE Tobacco use date assessed: 05/13/23 Dental Screening Dental Screen Date: 05/13/23 [facility] Medical History Allergic rhinitis HTN (hypertension) CAD (coronary artery disease) Bilateral carotid artery disease Hyperlipidemia Surgical History Stented coronary artery Hx of cardiac cath Hx of endoscopy Hx of colonoscopy Hx of eye surgery Hx of foot surgery Family History Mother CVD (cardiovascular disease) Social History Housing: House Alcohol intake: current Alcohol intake frequency: a few times a week Patient Tobacco Use Status: Former Tobacco user Quit Date: Years Smoked: 40 +/- e-Cigarette/Vaping Use: Never Used Second Hand Smoke Exposure: No service: No Current occupational status: retired Cognitive needs: No Hearing needs: No Vision needs: No Questionnaire Thrive Questionnaire Date Thrive assessed: 05/13/23 LAURIE-7 AMB Questionnaire LAURIE-7 Date LAURIE - 7 assessed: 05/13/23 Source: Developed by Drs. Jun Bo, Kim Coello, Zach Corral and colleagues, with an educational jameel from [employer]. Physical exam (Primary Care) Tobacco/Smoking Status: Tobacco use Status Tobacco use date assessed 05/13/23 05/13/23 12:52 Patient Tobacco Use Status Former Tobacco user 05/13/23 12:52 e-Cigarette/Vaping Use Never Used 05/13/23 12:52 Thrive Assessment: Date of Thrive Assessment Date Thrive assessed 05/13/23 05/13/23 12:52 Coding
--- NOTE | 2023-07-27 11:17 | MHC.OFFWIV ---
Intake Vital Signs 07/27/23 11:22 Height 5 ft 3 in Weight 132 lb 4 oz BMI 23.4 BP 108/58 L Blood Pressure Location Lt brachial Position Sitting Respiration 16 Pulse 58 Pulse Source Pulse Oximeter Temp 97.8 F Temp Source Oral Pulse Oximetry (%) 96 Intake Visit Reasons: constipation, cramping, liquid stool Intake Note: Constipation, liquid stool, abdominal cramps. Ongoing since February 2023 Patient Tobacco Use Status: Former Tobacco user Quit Date: Post menopausal: Yes Followed by:: Oleg Juarez Allergies No Known Allergies Allergy (Mild, Verified 07/27/23 11:17) NONE Medication List - Last Reconciled 07/27/23 by Debra Locke PA-C alprazolam 0.5 mg PO Q6H PRN amlodipine 5 mg PO DAILY aspirin (Adult Low Dose Aspirin) 81 mg PO DAILY atorvastatin 80 mg PO DAILY ezetimibe 10 mg PO DAILY 90 days hydrochlorothiazide 12.5 mg PO DAILY meloxicam 15 mg PO DAILY metoprolol succinate ER 50 mg (1/2 x 100 mg) PO DAILY 90 days omeprazole 20 mg PO DAILY psyllium husk (Metamucil) 0.4 grams PO BEDTIME timolol maleate 0.5% 1 drp ophthalmic (eye) DAILY Do you need a note to return to daycare/school/sports/work: No HPI constipation, cramping, liquid stool HPI Details Patient is an 82-year-old female with a significant past medical history of hypertension, hyperlipidemia, GERD and anxiety presenting today with complaints abdominal discomfort. She states that this has been going since February. She has followed up with her PCP and was last seen in April. She states starting in February she has been having fecal incontinence. She states that she will have constipation but then episodes of stool that is liquid and formed. She states it feels like there is a blockage in her lower colon. She states that she will feel the sensation like she has to go and need to immediately or will have incontinence. She states that sometimes she does not even realize she was incontinent. She is getting abdominal pain and cramping with these bowel movement. She has had 4 bowel movements today. She denies any pain currently. No fever, weight changes, n/v. No blood in the stool. Does report some urinary hesitancy which is new for her since this all started. States that she feels like she has to urinate but only a small amount will come out. This is not all the time but it is pretty frequent. She denies any incontinence, dysuria, malodorous urine. No back pain, paresthesias in the legs, weakness, saddle paresthesias. No back trauma or surgery. No change in gait. She used to follow with Dr. Pitts and was seen July 06 and started on metamucil twice a day, miralax daily, and dicyclomine prn. She denies any abdominal surgeries. Denies any recent travel or antibiotics. No history or family history of colorectal cancer. Unknown last colonoscopy. [facility] Medical History Allergic rhinitis HTN (hypertension) CAD (coronary artery disease) Bilateral carotid artery disease Hyperlipidemia Surgical History Stented coronary artery Hx of cardiac cath Hx of endoscopy Hx of colonoscopy Hx of eye surgery Hx of foot surgery Family History Mother CVD (cardiovascular disease) Social History Housing: House Alcohol intake: current Alcohol intake frequency: a few times a week Patient Tobacco Use Status: Former Tobacco user Quit Date: Years Smoked: 40 +/- e-Cigarette/Vaping Use: Never Used Second Hand Smoke Exposure: No service: No Current occupational status: retired Cognitive needs: No Hearing needs: No Vision needs: No Physical Exam Vital Signs: Last Vital Signs Temp 97.8 F 07/27/23 11:22 Pulse 58 07/27/23 11:22 Resp 16 07/27/23 11:22 BP 108/58 L 07/27/23 11:22 Pulse Ox 96 07/27/23 11:22 BMI result Body Mass Index 23.4 Const Orientation/consciousness: patient oriented x3 HEENT Ears: hearing grossly normal bilaterally Neck Thyroid: Thyroid normal Lymphatic: no lymphadenopathy noted Resp Auscultation: clear to auscultation bilaterally Cardio Rate: regular rate Rhythm: regular rhythm Heart sounds: S1 normal heart sound present and S2 normal heart sound present GI Inspection: Yes normal to inspection Palpation (GI): Soft to palpation and Other GI palpation findings present (nontender, no cva tenderness) Auscultation: normoactive bowel sounds Rectal Exam - Female: deferred (Declined) General: Yes CVA tenderness Back/Spine/Pelvis Back: CVA tenderness Thoracic/Lumbar Spine: thoracic and lumbar spine normal to inspection and straight leg raise negative bilaterally Skin General skin exam: no rashes or lesions noted Neuro General: patient oriented x3, gait normal and no focal motor deficits Motor exam (neuro): 5/5 motor strength present throughout Assessment & Plan Assessment & Plan (1) Lower abdominal pain: Code(s): R10.30 - Lower abdominal pain, unspecified Plan: Abdominal exam today is benign. Labs ordered today. CT abdomen and pelvis ordered. Advised patient to follow up with GI and her PCP. Advised to follow up sooner if anything worsens or changes. Warning signs of abdominal pain that would require emergent medical treatment were discussed. (2) Change in stool: Code(s): R19.5 - Other fecal abnormalities Plan: See above (3) Urinary hesitancy: Code(s): R39.11 - Hesitancy of micturition Plan: See above Orders: Orders Complete Blood Count Auto Diff Today R10.30 - Lower abdominal pain, unspecified, R19.5 - Other fecal abnormalities, R39.11 - Hesitancy of micturition Comprehensive [place]. Panel Fast Today R10.30 - Lower abdominal pain, unspecified, R19.5 - Other fecal abnormalities, R39.11 - Hesitancy of micturition UA CC w/rflx Micro + Cult Today R10.30 - Lower abdominal pain, unspecified, R19.5 - Other fecal abnormalities, R39.11 - Hesitancy of micturition TSH reflex Free T4 Today R10.30 - Lower abdominal pain, unspecified, R19.5 - Other fecal abnormalities, R39.11 - Hesitancy of micturition CT abdomen pelvis wo/w IV con Today R10.30 - Lower abdominal pain, unspecified, R19.5 - Other fecal abnormalities, R39.11 - Hesitancy of micturition Coding Level of Care Code Est Pt Level 4 (78346) Diagnoses Lower abdominal pain R10.30 Change in stool R19.5 Urinary hesitancy R39.11
[2023-07-27 11:22] VITALS: BP 108/58; PULSE 58; RESP 16; TEMP 36.6; O2SAT 96; BMI 23.4
== END 2023-07-27 11:59 | disposition home or self-care (01) ==
PROVIDERS: PCP Internal Medicine; Visit Provider Physician Assistant
DX: R10.30 Lower abdominal pain, unspecified (principal); R19.5 Other fecal abnormalities; R39.11 Hesitancy of micturition
CPT/HCPCS: 99214

== ENCOUNTER 2023-07-27 12:05 | Outpatient (REF) | payer MEDICARE, SELFPAY ==
[2023-07-27 14:34] LABS: MANUAL DIFF FLAG NO
[2023-07-27 14:43] LABS: Basophils Absolute Auto 0.1 X10*3/uL (0.0-0.2); Basophils Percent Auto 0.8 % (0-2); Eosinophils Absolute Auto 0.3 X10*3/uL (0.0-0.4); Eosinophils Percent Auto 3.5 % (0-4); Hematocrit 37.1 % (37.0-47.0); Imm Gran Abs Auto 0.03 X10*3/uL (0.00-0.03); Imm Gran Pct Auto 0.3 % (0.0-0.4); Lymphocytes Absolute Auto 1.7 X10*3/uL (1.2-4.9); Lymphocytes Percent Auto 18.6 % (20-40); Mean Corpuscular HGB Conc 32.3 g/dl (31.0-35.0); Mean Corpuscular Hemoglobin 27.3 pg (27.0-33.0); Mean Corpuscular Volume 84.5 fL (80.0-98.0); Mean Platelet Volume 10.7 fL (9.4-12.3); Monocytes Absolute Auto 0.5 X10*3/uL (0.1-1.2); Monocytes Percent Auto 6.1 % (2-11); Neutrophils Absolute Auto 6.3 x10*3/uL (2.0-8.3); Neutrophils Percent Auto 70.7 % (45-73); Platelet Count 325 X10*3/uL (160-400); Red Blood Count 4.39 X10*6/uL (4.20-5.50); Red Cell Distribution Width 14.5 % (11.0-16.0); White Blood Count 8.9 X10*3/uL (4.8-10.8)
[2023-07-27 15:34] LABS: Alanine Aminotransferase 11 U/L (0-31); Albumin Level 4.2 g/dL (3.5-5.0); Alkaline Phosphatase 85 U/L (39-117); Anion Gap 12 (12-20); Aspartate Amino Transferase 17 U/L (5-31); Bilirubin Total 0.5 mg/dL (0.0-1.0); Blood Urea Nitrogen 16 mg/dL (9-16); Calcium 9.5 mg/dL (8.4-10.2); Carbon Dioxide 26 mmol/L (22-29); Chloride 106 mmol/L (96-108); Cholesterol 129 mg/dL (<200); Estimated Glomerular Filt Rate > 60; Glucose Fasting 98 mg/dL (60-99); HDL Cholesterol 46 mg/dL (>40); LDL Cholesterol Calculated 67 mg/dL (<100); Potassium 4.2 mmol/L (3.3-5.1); Sodium 140 mmol/L (135-145); Total Protein 7.4 g/dL (6.5-8.0); Triglycerides 81 mg/dL (<150)
[2023-07-27 15:36] LABS: TSH reflex Free T4 2.65 uIU/mL (0.32-4.0)
== END 2023-07-27 12:06 | disposition home or self-care (01) ==
LOC: HO.WFDLDS 12:05
PROVIDERS: Referring Provider Physician Assistant; Visit Provider Internal Medicine
DX: E78.5 Hyperlipidemia, unspecified (principal); N28.9 Disorder of kidney and ureter, unspecified; E03.9 Hypothyroidism, unspecified; R10.30 Lower abdominal pain, unspecified; R19.5 Other fecal abnormalities; R39.11 Hesitancy of micturition
CPT/HCPCS: 36415; 80053; 80061; 84443; 85025

== ENCOUNTER 2023-08-24 10:04 | Outpatient (REF) | payer MEDICARE, SELFPAY ==
[2023-08-24 12:41] LABS: Alanine Aminotransferase 10 U/L (0-31); Albumin Level 4.2 g/dL (3.5-5.0); Alkaline Phosphatase 95 U/L (39-117); Anion Gap 12 (12-20); Aspartate Amino Transferase 16 U/L (5-31); Bilirubin Total 0.5 mg/dL (0.0-1.0); Blood Urea Nitrogen 16 mg/dL (9-16); Calcium 9.7 mg/dL (8.4-10.2); Carbon Dioxide 28 mmol/L (22-29); Chloride 106 mmol/L (96-108); Estimated Glomerular Filt Rate > 60; Glucose Fasting 102 mg/dL (60-99); Potassium 4.5 mmol/L (3.3-5.1); Sodium 141 mmol/L (135-145); Total Protein 7.4 g/dL (6.5-8.0)
== END 2023-08-24 10:05 | disposition home or self-care (01) ==
LOC: HO.WFDLDS 10:04
PROVIDERS: Visit Provider Physician Assistant
DX: R10.30 Lower abdominal pain, unspecified (principal); R19.5 Other fecal abnormalities; R39.11 Hesitancy of micturition
CPT/HCPCS: 36415; 80053

== ENCOUNTER 2023-08-30 14:55 | Outpatient (AMB) | payer MEDICARE, SELFPAY ==
--- NOTE | 2023-08-30 15:06 | MHC.OFFVIS ---
Vital Signs 08/30/23 15:07 Height 5 ft 3 in Weight 130 lb 1.164 oz BMI 23.0 BP 110/70 Blood Pressure Location Lt brachial Position Sitting Pulse 64 Intake Visit Reasons: 6 mth fu Intake Note: 6 month follow-up after stress test no energy Vp Publisher Development Required: No Allergies No Known Allergies Allergy (Mild, Verified 07/27/23 11:17) NONE Medication List - Last Reconciled 08/30/23 by Timmy Carr MD alprazolam 0.5 mg PO Q6H PRN amlodipine 5 mg PO DAILY aspirin (Adult Low Dose Aspirin) 81 mg PO DAILY atorvastatin 80 mg PO DAILY ezetimibe 10 mg PO DAILY 90 days hydrochlorothiazide 12.5 mg PO DAILY meloxicam 15 mg PO DAILY metoprolol succinate ER 50 mg (1/2 x 100 mg) PO DAILY 90 days omeprazole 20 mg PO DAILY psyllium husk (Metamucil) 0.4 grams PO BEDTIME timolol maleate 0.5% 1 drp ophthalmic (eye) DAILY HPI Comments Details: Fabio comes for follow up after testing. She continues to have exertional SOB. No orthopnea, PND, leg edema. No chest pain. No palpitations, lightheadedness or LOC. LDL is well controlled. MIBI was within normal limits. Echo shows normal LV systolic function with grade II diastolic dysfunction PFSH Medical History Allergic rhinitis HTN (hypertension) CAD (coronary artery disease) Bilateral carotid artery disease Hyperlipidemia Surgical History Stented coronary artery Hx of cardiac cath Hx of endoscopy Hx of colonoscopy Hx of eye surgery Hx of foot surgery Family History Mother CVD (cardiovascular disease) Social History Housing: House Alcohol intake: current Alcohol intake frequency: a few times a week Patient Tobacco Use Status: Former Tobacco user Years Smoked: 40 +/- e-Cigarette/Vaping Use: Never Used Second Hand Smoke Exposure: No service: No Current occupational status: retired Cognitive needs: No Hearing needs: No Vision needs: No Review of Systems Const Denies chills, Denies fatigue, Denies fever(s), Denies frequent falls, Denies weakness, Denies weight gain and Denies weight loss ENT Denies dizziness Card Denies chest pain, Denies leg edema, Denies lightheadedness, Denies palpitations, Denies dyspnea, Denies dyspnea on exertion, Denies orthopnea and Denies other (loss of consciousness) Resp Denies cough, Denies dyspnea and Denies dyspnea on exertion GI Denies hematochezia and Denies change in stool character Musc Denies abnormal gait, Denies muscle weakness, Denies numbness, Denies radiating pain into limb and Denies tingling Neuro Denies abnormal gait, Denies dizziness, Denies frequent falls, Denies numbness, Denies tingling and Denies weakness Endo Denies fatigue and Denies palpitations Physical Exam Vital Signs: Last Vital Signs Pulse 64 08/30/23 15:07 BP 110/70 08/30/23 15:07 BMI result Body Mass Index 23.0 Const General: cooperative, comfortable, no acute distress, alert, awake and well groomed Nutritional Appearance: average body habitus Orientation/consciousness: patient oriented x3 Limitations: no limitations Neck Neck: Yes trachea midline, Yes supple and Yes no JVD Carotids: bruit bilateral Resp Effort & Inspection: normal respiratory effort Auscultation: clear to auscultation bilaterally Cardio Jugular venous distension: no JVD Palpation: normal PMI Rate: regular rate Rhythm: regular rhythm Heart sounds: S1 normal heart sound present and S2 normal heart sound present GI Auscultation: normal bowel sounds Skin General skin exam: no rashes or lesions noted and ecchymosis Neuro General: patient oriented x3 and no focal motor deficits Extrem General: No clubbing, No cyanosis and Yes pedal edema (Left lower extremity) Psych Appearance: grossly normal Assessment & Plan Assessment & Plan (1) CAD (coronary artery disease): Code(s): I25.10 - Atherosclerotic heart disease of [place] coronary artery without angina pectoris Category: Medical Plan: Diffuse vascular disease with prior CAD and PCI with no ischemia of recent perfusion study. SOB related to diastolic dysfunction without evidence of ischemia. Continue aspirin therapy for life. Continue aggressive RFM. LDL is well optimized. Continue high intensity statin therapy. Conitnue aggressive BP control. (2) HTN (hypertension): Code(s): I10 - Essential (primary) hypertension Category: Medical Plan: BP is currently well optimized. Conintue current therapy. Advise to monnitor BP at home. Target golad BP at less than 130/84. Low salt diet recommended. Importance of management of BP was discussed. Will follow up in 6 months. Orders: Orders Cardiac Cath VISHAL Diagnostic 7 Weeks R06.02 - Shortness of breath Coding Level of Care Code Est Pt Level 4 (50172) Diagnoses CAD (coronary artery disease) I25.10 HTN (hypertension) I10
[2023-08-30 15:07] VITALS: BP 110/70; PULSE 64; BMI 23.0
== END 2023-08-30 15:47 | disposition home or self-care (01) ==
PROVIDERS: PCP Internal Medicine; Visit Provider Internal Medicine Cardiovascular Disease
DX: I25.10 Atherosclerotic heart disease of native coronary artery without angina pectoris (principal); I10 Essential (primary) hypertension
CPT/HCPCS: 99214

== ENCOUNTER → 2023-08-30 14:55 | Outpatient (BNVA) | payer MEDICARE, SELFPAY | PROVIDERS: PCP Internal Medicine; Visit Provider Internal Medicine Cardiovascular Disease | DX: I25.10 Atherosclerotic heart disease of native coronary artery without angina pectoris (principal); I10 Essential (primary) hypertension; Z79.82 Long term (current) use of aspirin; Z79.899 Other long term (current) drug therapy | CPT/HCPCS: 99212 ==

== ENCOUNTER 2023-09-05 14:37 | Outpatient (AMB) | payer MEDICARE, SELFPAY ==
[2023-09-05 14:41] VITALS: BP 104/60; PULSE 55; O2SAT 99; BMI 23.0
--- NOTE | 2023-09-05 14:41 | A.OFFPC_ITS ---
Vital Signs 09/05/23 14:41 Height 5 ft 3 in Weight 130 lb BMI 23.0 BP 104/60 Blood Pressure Location Lt brachial Position Sitting Pulse 55 Pulse Source Pulse Oximeter Pulse Oximetry (%) 99 Oxygen Delivery Method Room Air Intake Visit Reasons: gi issues [employer] Infrastructure Consultant Required: No Practice Managers: Not Required per policy Accompanied by: Self / Same As Patient Allergies No Known Allergies Allergy (Mild, Verified 09/05/23 14:41) NONE Medication List - Last Reconciled 09/06/23 by Oleg Juarez MD alprazolam 0.5 mg PO Q6H PRN amlodipine 5 mg PO DAILY aspirin (Adult Low Dose Aspirin) 81 mg PO DAILY atorvastatin 80 mg PO DAILY dicyclomine mg PO ezetimibe 10 mg PO DAILY 90 days hydrochlorothiazide 12.5 mg PO DAILY lactulose 20 grams (30 mL) PO BID meloxicam 15 mg PO DAILY metoprolol succinate ER 50 mg (1/2 x 100 mg) PO DAILY 90 days omeprazole 20 mg PO DAILY psyllium husk (Metamucil) 0.4 grams PO BEDTIME timolol maleate 0.5% 1 drp ophthalmic (eye) DAILY Tobacco use date assessed: 05/13/23 Fall risk assessment: No Falls in past year Last assessed Fall Risk: 09/05/23 Dental Screening Dental Screen Date: 05/13/23 HPI gi issues HPI Details has chronic constipation and seeing gi PFSH Medical History Allergic rhinitis HTN (hypertension) CAD (coronary artery disease) Bilateral carotid artery disease Hyperlipidemia Surgical History Stented coronary artery Hx of cardiac cath Hx of endoscopy Hx of colonoscopy Hx of eye surgery Hx of foot surgery Family History Mother CVD (cardiovascular disease) Social History Housing: House Alcohol intake: current Alcohol intake frequency: a few times a week Patient Tobacco Use Status: Former Tobacco user Years Smoked: 40 +/- e-Cigarette/Vaping Use: Never Used Second Hand Smoke Exposure: No service: No Current occupational status: retired Cognitive needs: No Hearing needs: No Vision needs: No Questionnaire Thrive Questionnaire Date Thrive assessed: 05/13/23 LAURIE-7 AMB Questionnaire LAURIE-7 Date LAURIE - 7 assessed: 05/13/23 Source: Developed by Drs. Jun Bo, Kim Coello, Zach Corral and colleagues, with an educational jameel from [employer]. Review of Systems Const Denies chills, Denies headache(s) and Denies weight loss ENT Denies headache(s) Card Denies chest pain, Denies syncope, Denies irregular heart rhythm and Denies dyspnea Resp Denies chest congestion, Denies cough and Denies dyspnea GI Denies abdominal pain, Denies nausea and Denies vomiting Musc Denies deformity and Denies joint swelling Neuro Denies syncope and Denies headache(s) Physical exam (Primary Care) Vital Signs: Last Vital Signs Pulse 55 09/05/23 14:41 BP 104/60 09/05/23 14:41 Pulse Ox 99 09/05/23 14:41 Oxygen Delivery Method Room Air 09/05/23 14:41 BMI result Body Mass Index 23.0 Tobacco/Smoking Status: Tobacco use Status Tobacco use date assessed 05/13/23 09/05/23 14:47 Patient Tobacco Use Status Former Tobacco user 09/05/23 14:47 e-Cigarette/Vaping Use Never Used 09/05/23 14:47 Thrive Assessment: Date of Thrive Assessment Date Thrive assessed 05/13/23 09/05/23 14:47 Const General: cooperative, comfortable, no acute distress and alert Neck Neck: Yes no lymphadenopathy Thyroid: Thyroid normal Resp Effort & Inspection: normal respiratory effort Auscultation: clear to auscultation bilaterally Percussion: percussion normal Cardio Jugular venous distension: no JVD Palpation: normal PMI Rate: regular rate Rhythm: regular rhythm Heart sounds: S1 normal heart sound present and S2 normal heart sound present GI Inspection: Yes normal to inspection Palpation (GI): No hepatosplenomegaly present Skin General skin exam: no rashes or lesions noted Extrem General: Yes no clubbing, cyanosis or edema Assessment and Plan Assessment & Plan (1) Constipation: Code(s): K59.00 - Constipation, unspecified Plan: lactulose added Medications: New lactulose 20 grams (30 mL) PO BID 1,200 mL 0RF Coding Level of Care Code Est Pt Level 3 (19315) Diagnoses Constipation K59.00
== END 2023-09-05 15:02 | disposition home or self-care (01) ==
PROVIDERS: PCP Internal Medicine; Visit Provider Internal Medicine
DX: K59.00 Constipation, unspecified (principal)
CPT/HCPCS: 99213

== ENCOUNTER 2023-09-30 09:17 | Outpatient (REF) | payer MEDICARE, SELFPAY ==
[2023-09-30 11:33] LABS: Appearance Urine Turbid; Color Urine Dark Yellow; Glucose Urine UA Negative (Negative); Leukocyte Esterase Urine Large (3+) (Negative); Nitrite Urine Negative (Negative); PH 6.5 (5.0-9.0); UMIC TRIGGER UACC YES; Urine Blood Negative (Negative); Urine Ketones Trace mg/dL (Negative); Urine Protein Trace mg/dL (Neg-Trace)
[2023-09-30 11:36] LABS: Anion Gap 11 (12-20); Blood Urea Nitrogen 16 mg/dL (9-16); Calcium 9.2 mg/dL (8.4-10.2); Carbon Dioxide 27 mmol/L (22-29); Chloride 106 mmol/L (96-108); Estimated Glomerular Filt Rate > 60; Glucose Random 94 mg/dL (60-115); Potassium 4.4 mmol/L (3.3-5.1); Sodium 140 mmol/L (135-145)
[2023-09-30 11:43] LABS: Bacteria Urine 4+ (None Seen); Granular Casts Urine Present; Hyaline Casts Urine >20 /LPF (0-2); RBC Urine 0-2 /HPF (0-2); UACC Culture Trigger YES
== END 2023-09-30 09:18 | disposition home or self-care (01) ==
LOC: HO.WFDLDS 09:17
PROVIDERS: Physician Assistant; Visit Provider Internal Medicine
DX: R10.30 Lower abdominal pain, unspecified (principal); I10 Essential (primary) hypertension
CPT/HCPCS: 36415; 80048; 81001; 87086; 87088; 87186

== ENCOUNTER 2023-10-03 15:44 | Outpatient (REF) | payer MEDICARE, SELFPAY ==
--- NOTE | ~2023-10-03 | CT_ITS ---
EXAMINATION: CT ABDOMEN AND PELVIS WITHOUT AND WITH CONTRAST CLINICAL INFORMATION: Hesitancy of micturition COMPARISON: 08/07/2015 TECHNIQUE: Multidetector volumetric imaging was performed of the abdomen and pelvis before and after the IV administration of 85 mL of Omnipaque 300 intravenous contrast. Sagittal and coronal reformatted images were obtained on the technologist's workstation. This CT examination was performed using dose optimization techniques as appropriate, variously including the following: *Automated exposure control *Adjustment of mA and/or kV according to patient size (this includes techniques or standardized protocols for targeted exams where dose is matched to indication/reason for exam; i.e. extremities or head) *Use of iterative reconstruction technique DLP: 741 mGy-cm FINDINGS: LUNG BASES: Within the left lower lobe adjacent pleura there is a 4 mm nodule (image 5, series 6) which is unchanged from prior study of 08/07/2015. There is an additional 5 mm nodule within the left lower lobe which contacts the pleura which is similarly unchanged (image 4, series 6). Within the right lower lobe there are grouped micronodular opacities measuring no greater than 4 mm which may relate to airways inflammation. LIVER, GALLBLADDER, AND BILIARY TREE: The liver is normal in size, shape, and attenuation. No focal hepatic lesion or biliary ductal dilatation is present. The gallbladder is unremarkable with no evidence of radiopaque gallstones, gallbladder wall thickening, or obvious pericholecystic inflammatory changes. PANCREAS: Unremarkable SPLEEN: Unremarkable ADRENAL GLANDS: Unremarkable KIDNEYS AND URETERS: The kidneys are normal in size and enhance symmetrically. There is mild lobulation of the cortex bilaterally. There is a subcentimeter probable cyst at the upper pole of the right kidney which would not require routine radiographic follow-up. Additional subcentimeter hypodensities are seen bilaterally. No renal calculi are seen. There is no hydroureter or hydronephrosis. There is no abnormal perinephric stranding. BLADDER: The bladder is partially distended and overall normal in contour. Best visualized on the sagittal view there is a relatively low position of the bladder, uterus, and anorectal junction when compared with the pubococcygeal line which can be seen in the setting of pelvic floor relaxation/pelvic floor dysfunction. GASTROINTESTINAL TRACT: There is a moderate hiatus hernia containing much of the proximal stomach. The stomach is otherwise unremarkable. Small and large bowel are normal in course and caliber. There is a normal appendix. No bowel wall inflammatory changes are seen. There is diverticulosis of the sigmoid colon. ABDOMINAL WALL: No significant hernia is appreciated. LYMPH NODES: Normal VASCULAR: The aorta is normal in caliber. There is relatively extensive eccentric calcification of the aorta and its branch vessels. There is bulky calcific plaque of the right common iliac artery. While the study is not performed as a CT angiogram, this results in at least a moderate stenosis. Proximal femoral vessels are patent. PELVIC VISCERA: The uterus and adnexa are unremarkable. OSSEOUS STRUCTURES: There is decreased bony mineralization throughout. There is disc degenerative change throughout the imaged thoracolumbar spine and degenerative 2 mm of anterolisthesis of L5 on S1. There is facet arthropathy at multiple levels predominantly from L3 and below. There are no acute or aggressive bony abnormalities. Within the soft tissues of the right hip there is irregular lobulated calcification measures in the order of 4.7 x 2.5 cm which could relate to an old soft tissue injury. CT/CT abdomen pelvis wo/w IV con IMPRESSION: There are no acute findings in the abdomen or pelvis. On sagittal view there is a low position of pelvic floor structures that can be seen in the setting of pelvic floor relaxation/pelvic floor dysfunction. Left lower lobe pulmonary nodules which measure no greater than 5 mm are unchanged from prior studies dating to 08/07/2015. There are a few micronodular opacities within the right lower lobe, the appearance of which is suggestive of postinflammatory process. According to the UPDATED 2017 Fleischner Society recommendations, the advised follow-up imaging for multiple subsolid nodules, the largest of which measures <6 mm, is: CT at 3-6 months. If stable, consider CT at 2 and 4 years. However, the patient has not had a diagnostic chest CT and CT of the chest could be considered if warranted. Bulky calcific plaque of the right common iliac artery which results in at least some degree of stenosis. Would correlate for symptoms of claudication. Fleischner guidelines were followed.
[2023-10-03] MEDS: Barium Sulfate Oral (Berry) 450 ML ORAL.SUSP 900 ML PO (17:51)
[2023-10-03] MEDS: iohexoL 350 MG/ML 100 ML INFUS..BTL 85 ML IV (18:02)
== END 2023-10-03 15:45 | disposition home or self-care (01) ==
LOC: HO.CT 15:44
PROVIDERS: PCP Internal Medicine; Visit Provider Physician Assistant
DX: R39.11 Hesitancy of micturition (principal); R19.5 Other fecal abnormalities; R10.30 Lower abdominal pain, unspecified
CPT/HCPCS: 74178; Q9967

== ENCOUNTER 2023-10-14 13:45 | Outpatient (AMB) | payer MEDICARE, SELFPAY ==
--- NOTE | 2023-10-14 13:47 | A.OFFPC_ITS ---
Vital Signs 10/14/23 14:07 Height 5 ft 3 in Weight 130 lb 8 oz BMI 23.1 BP 134/85 Blood Pressure Location Lt brachial Position Sitting Respiration 14 Pulse 53 Pulse Source Pulse Oximeter Temp 97.2 F Temp Source Temporal Artery Scan Pulse Oximetry (%) 99 Oxygen Delivery Method Room Air Intake Visit Reasons: MAXIMILIANO from [place] Intake Note: Patient is here to establish care with [facility]. 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 Manager Required: No Allergies No Known Allergies Allergy (Mild, Verified 09/05/23 14:41) NONE Medication List - Last Reconciled 10/16/23 by Felicita Odonnell MD alprazolam 0.5 mg PO Q6H PRN amlodipine 5 mg PO DAILY aspirin (Adult Low Dose Aspirin) 81 mg PO DAILY atorvastatin 80 mg PO DAILY ezetimibe 10 mg PO DAILY 90 days hydrochlorothiazide 12.5 mg PO DAILY lactulose 20 grams (30 mL) PO BID linaclotide (Linzess) 145 mcg PO DAILY 90 days meloxicam 15 mg PO DAILY metoprolol succinate ER 50 mg (1/2 x 100 mg) PO DAILY 90 days omeprazole 20 mg PO DAILY timolol maleate 0.5% 1 drp ophthalmic (eye) DAILY Tobacco use date assessed: 05/13/23 Dental Screening Dental Screen Date: 05/13/23 HPI HPI Comments History of Present Illness Details The patient is a 82 year old female with a significant past medical history of hypertension, hyperlipidemia, GERD and anxiety presenting to [facility]. Transferring from [facility] to home She has been seen recently for a 8 month history of constipation and overflow diarrhea. Saw Dr Lee for same issue in June and has appt for Dec. She has been prescribed metamucil, miralax, bentyl and lactulose. She used the first two for 2 bottles, continues to use the bentyl. Tells me no relief from these. She did not try the lactulose yet. She is getting abdominal pain and cramping with bowel movement. Does report some urinary hesitancy which is new for her since her bowel changes started. She recently tested positive for a UTI and completed a course of macrobid. She is seeing dermatology for skin checks. Saws in the past few months seems to have developed worsening lesions on the face and chest. She has used FU cream for the past two weeks. ROS see HPI PHYSICAL EXAM: GENERAL: Alert and oriented x 3. NAD EYES: EOMI. Anicteric. HENT: Moist mucous membranes. No scleral icterus. No cervical lymphadenopathy. LUNGS: Clear to auscultation bilaterally. CARDIOVASCULAR: Regular rate and rhythm. No murmur. No JVD. ABDOMEN: Soft, non-tender +bs EXTREMITIES: No edema. Non-tender. SKIN: Scattered AKs NEUROLOGIC: No focal neurological deficits. CN II-XII grossly intact PSYCHIATRIC: Cooperative. Appropriate mood and affect [facility] Medical History Allergic rhinitis HTN (hypertension) CAD (coronary artery disease) Bilateral carotid artery disease Hyperlipidemia Surgical History Stented coronary artery Hx of cardiac cath Hx of endoscopy Hx of colonoscopy Hx of eye surgery Hx of foot surgery Family History Mother CVD (cardiovascular disease) Social History Housing: House Alcohol intake: current Alcohol intake frequency: a few times a week Patient Tobacco Use Status: Former Tobacco user Years Smoked: 40 +/- e-Cigarette/Vaping Use: Never Used Second Hand Smoke Exposure: No service: No Current occupational status: retired Cognitive needs: No Hearing needs: No Vision needs: No Questionnaire PHQ-9 Over the last 2 weeks, how often have you been bothered by any of the following problems? 1. Little interest or pleasure in doing things: not at all 2. Feeling down, depressed, or hopeless: not at all 3. Trouble falling or staying asleep, or sleeping too much: not at all 4. Feeling tired or having little energy: several days 5. Poor appetite or overeating: not at all 6. Feeling bad about yourself - or that you are a failure or have let yourself or your family down: not at all 7. Trouble concentrating on things, such as reading the newspaper or watching television: not at all 8. Moving or speaking so slowly that other people could have noticed. Or the opposite - being so fidgety or restless that you have been moving around a lot more than usual: not at all 9. Thoughts that you would be better off or of hurting yourself in some way: not at all Total score: 1 Depression Screening Interpretation: Negative (neg) Depression Screening Done: Yes 39055 - PHQ-9 Billing: Yes Source: Developed by Drs. Jun Bo, Kim Coello, Zach Corral and colleagues, with an educational jameel from [employer]. Thrive Questionnaire Date Thrive assessed: 10/14/23 I am a: Patient What is your living situation today?: I have a steady place to live Within the past 12 months, did the food you bought not last and you didn't have the money to get more?: Never true Within the past 12 months, did you worry whether your food would run out before you got money to buy more?: Never true Do you have trouble paying for medicines?: No Do you have trouble getting transportation to medical appointments?: No Do you have trouble paying your heating and electricity bill?: No Do you have trouble taking care of your child, family member or friend?: No Do you have trouble with day-to-day activities such as bathing, preparing meals, shopping, managing finances, etc.?: No Are you currently unemployed and looking for a job?: No Are you interested in more education?: No Please select the resources that you would like help with: None Currently or been in a relationship where the following occur: No concerns reported THRIVE Score: 0 AUDIT C Alcohol Use Questionnaire (AUDIT-C) 1. How often do you have a drink containing alcohol?: Monthly or less 2. How many drinks containing alcohol do you have on a typical day when you are drinking?: 1 or 2 3. How often do you have six or more drinks on one occasion?: Never Total Score: 1 LAURIE-7 AMB Questionnaire LAURIE-7 Date LAURIE - 7 assessed: 05/13/23 Feeling nervous, anxious, or on edge: 0 = Not at all Not being able to stop or control worryin = Not at all Worrying too much about different things: 0 = Not at all Trouble relaxin = Not at all Being so restless that it is hard to sit still: 0 = Not at all Becoming easily annoyed or irritable: 0 = Not at all Feeling afraid as if something awful might happen: 0 = Not at all Total LAURIE-7 score (0-4 normal; 5-9 mild; 10-14 moderate; 15-21 severe): 0 Source: Developed by Drs. Jun Bo, Kim Coello, Zach Corral and colleagues, with an educational jameel from [employer]. LAURIE-7 Assessment Billing LAURIE-7 Assessment Tool: LAURIE-7 Assessment 11155 Physical exam (Primary Care) Vital Signs: Last Vital Signs Temp 97.2 F 10/14/23 14:07 Pulse 53 10/14/23 14:07 Resp 14 10/14/23 14:07 BP 134/85 10/14/23 14:07 Pulse Ox 99 10/14/23 14:07 Oxygen Delivery Method Room Air 10/14/23 14:07 BMI result Body Mass Index 23.1 Tobacco/Smoking Status: Tobacco use Status Tobacco use date assessed 05/13/23 10/14/23 13:50 Patient Tobacco Use Status Former Tobacco user 10/14/23 13:50 e-Cigarette/Vaping Use Never Used 10/14/23 13:50 PHQ-9: PHQ-9 Score PHQ-9: Total score 1 10/16/23 09:25 Depression Screening Interpretation: Negative (neg) Thrive Assessment: Date of Thrive Assessment Date Thrive assessed 10/14/23 10/14/23 13:50 Currently or been in a relationship where the following occur: No concerns reported Assessment and Plan Assessment & Plan (1) Constipation: Code(s): K59.00 - Constipation, unspecified Qualifiers: Constipation type: unspecified constipation type Qualified Code(s): K59.00 - Constipation, unspecified Plan: Trial of moderate dose linzess if covered Will stop bentyl as she hasnt found any relief with the mediation She can use lactulose as needed-discussed how to use this medication (2) Urinary hesitancy: Code(s): R39.11 - Hesitancy of micturition Plan: Recheck urine culture Orders: Orders UA w Microscopic 10/14/23 K59.00 - Constipation, unspecified, R39.11 - Hesitancy of micturition IRON PROFILE 10/14/23 K59.00 - Constipation, unspecified, R06.02 - Shortness of breath, R19.5 - Other fecal abnormalities, R39.11 - Hesitancy of micturition Urine Culture 10/14/23 K59.00 - Constipation, unspecified, R39.11 - Hesitancy of micturition TSH reflex Free T4 10/14/23 K59.00 - Constipation, unspecified, R06.02 - Shortness of breath, R19.5 - Other fecal abnormalities, R39.11 - Hesitancy of micturition Complete Blood Count Auto Diff 10/14/23 K59.00 - Constipation, unspecified, R06.02 - Shortness of breath, R19.5 - Other fecal abnormalities, R39.11 - Hesitancy of micturition Referrals Gastroenterology Referral K59.00 - Constipation, unspecified, R19.5 - Other fecal abnormalities Medications: New linaclotide (Linzess) 145 mcg PO DAILY 90 days 90 caps 3RF Coding Level of Care Code Est Pt Level 5 (77475) Diagnoses Constipation, unspecified constipation type K59.00 Constipation type: unspecified constipation type Urinary hesitancy R39.11 Additional Codes LAURIE-7 Assessment Billing - LAURIE-7 Assessment Tool: LAURIE-7 Assessment 51367 ([id number])
[2023-10-14 14:07] VITALS: BP 134/85; PULSE 53; RESP 14; TEMP 36.2; O2SAT 99; BMI 23.1
== END 2023-10-14 15:07 | disposition home or self-care (01) ==
PROVIDERS: PCP Internal Medicine; Visit Provider Internal Medicine
DX: K59.00 Constipation, unspecified (principal); R39.11 Hesitancy of micturition
CPT/HCPCS: 99214

== ENCOUNTER 2023-10-14 15:16 | Outpatient (REF) | payer MEDICARE, SELFPAY ==
[2023-10-14 17:35] LABS: MANUAL DIFF FLAG NO
[2023-10-14 17:37] LABS: Basophils Absolute Auto 0.1 X10*3/uL (0.0-0.2); Basophils Percent Auto 1.2 % (0-2); Eosinophils Absolute Auto 0.3 X10*3/uL (0.0-0.4); Eosinophils Percent Auto 3.8 % (0-4); Hematocrit 34.2 % (37.0-47.0); Hemoglobin 10.9 g/dl (12.0-16.0); Imm Gran Abs Auto 0.02 X10*3/uL (0.00-0.03); Imm Gran Pct Auto 0.3 % (0.0-0.4); Lymphocytes Absolute Auto 1.6 X10*3/uL (1.2-4.9); Lymphocytes Percent Auto 21.7 % (20-40); Mean Corpuscular HGB Conc 31.9 g/dl (31.0-35.0); Mean Corpuscular Hemoglobin 26.6 pg (27.0-33.0); Mean Corpuscular Volume 83.4 fL (80.0-98.0); Mean Platelet Volume 10.6 fL (9.4-12.3); Monocytes Absolute Auto 0.5 X10*3/uL (0.1-1.2); Monocytes Percent Auto 6.6 % (2-11); Neutrophils Absolute Auto 4.9 x10*3/uL (2.0-8.3); Neutrophils Percent Auto 66.4 % (45-73); Platelet Count 339 X10*3/uL (160-400); Red Cell Distribution Width 14.4 % (11.0-16.0); White Blood Count 7.4 X10*3/uL (4.8-10.8)
[2023-10-14 17:53] LABS: Appearance Urine Clear; Color Urine Yellow; Glucose Urine UA Negative (Negative); Leukocyte Esterase Urine Large (3+) (Negative); Nitrite Urine Negative (Negative); PH 7.5 (5.0-9.0); UMIC TRIGGER UA YES; UMIC TRIGGER UACC YES; Urine Blood Negative (Negative); Urine Ketones Negative (Negative); Urine Protein Negative (Neg-Trace)
[2023-10-14 18:15] LABS: Bacteria Urine None Seen (None Seen); Hyaline Casts Urine 0-2 /LPF (0-2); RBC Urine 0-2 /HPF (0-2); UACC Culture Trigger YES; WBC Urine 0-5 /HPF (0-5)
[2023-10-15 01:25] LABS: Iron 33 mcg/dL (30-160); Percent Iron Saturation 9 % (15-50); Total Iron Binding Capacity 350 mcg/dL (228-428); Unsaturated Iron Binding 317 ug/dL
[2023-10-15 01:48] LABS: TSH reflex Free T4 2.66 uIU/mL (0.32-4.0)
== END 2023-10-14 15:17 | disposition home or self-care (01) ==
LOC: HO.WFDLDS 15:16
PROVIDERS: Physician Assistant; Visit Provider Internal Medicine
DX: R39.11 Hesitancy of micturition (principal); K59.00 Constipation, unspecified; R19.5 Other fecal abnormalities; R06.02 Shortness of breath; R10.30 Lower abdominal pain, unspecified
CPT/HCPCS: 36415; 81001; 83540; 84443; 85025; 87086

== ENCOUNTER 2023-12-13 13:44 | Outpatient (AMB) | payer MEDICARE, SELFPAY ==
[2023-12-13 13:47] VITALS: BP 138/54; PULSE 76; RESP 12; O2SAT 100
--- NOTE | 2023-12-13 13:47 | MHC.PC.OV ---
Vital Signs 12/13/23 13:47 Height 5 ft 3 in BMI Reason not done Patient refused/unable BP 138/54 L Blood Pressure Location Rt brachial Position Sitting Respiration 12 Pulse 76 Pulse Source Pulse Oximeter Pulse Oximetry (%) 100 Oxygen Delivery Method Room Air Intake Visit Reasons: follow up constipation Intake Note: Patient is here to follow up regarding constipation. Seat Mender Required: No Accompanied by: Spouse Allergies No Known Allergies Allergy (Mild, Verified 12/14/23 12:02) NONE Tobacco use date assessed: 05/13/23 Dental Screening Dental Screen Date: 05/13/23 HPI HPI Comments History of Present Illness Details The patient is a 82 year old female with a significant past medical history of hypertension, hyperlipidemia, GERD and anxiety presenting for follow up She has been seen recently for a 8 month history of constipation and overflow diarrhea. Saw Dr Lee for same issue in June and has appt for Dec planned. She has been prescribed metamucil, miralax, bentyl and lactulose. She used the first two for 2 bottles, continues to use the bentyl. Tells me no relief from these. She did not try the lactulose yet. She is getting abdominal pain and cramping with bowel movement. She had recent CT scan of the abdomen and pelvis without any acute pathology. It did show some non small pulmonary nodules and Bulky calcific plaque of the right common iliac artery which results in at least some degree of stenosis. Would correlate for symptoms of claudication. Patient denies increased pain with eating. She has not started the lactulose and is not in receipt of the linzess that I ordered her. She continues to suffer from the same symptoms. She is more anemic than on last check. She was able to get a GI visit slightly sooner-in November Seeing GI tomorrow at [place] for consult CTA abdomen was ordered and is scheduled for 01/10. Linzess worked sometimes did not work others. Caused urgency when working and so she has not been taking it She moved to [place] [facility] from [facility]. She was pleased with her visit there and skin is healing ROS see HPI PHYSICAL EXAM: PHYSICAL EXAM: GENERAL: Alert and oriented x 3. NAD EYES: EOMI. Anicteric. HENT: Moist mucous membranes. No scleral icterus. No cervical lymphadenopathy. LUNGS: Clear to auscultation bilaterally. CARDIOVASCULAR: Regular rate and rhythm. ABDOMEN: Soft, non-tender +bs EXTREMITIES: No edema. Non-tender. SKIN: No rashes or lesions. Warm. NEUROLOGIC: No focal neurological deficits. CN II-XII grossly intact PSYCHIATRIC: Cooperative. Appropriate mood and affect [facility] Medical History Allergic rhinitis HTN (hypertension) CAD (coronary artery disease) Bilateral carotid artery disease Hyperlipidemia Surgical History Stented coronary artery Hx of cardiac cath Hx of endoscopy Hx of colonoscopy Hx of eye surgery Hx of foot surgery Family History Mother CVD (cardiovascular disease) Social History Housing: House Alcohol intake: current Alcohol intake frequency: a few times a week Patient Tobacco Use Status: Former Tobacco user Years Smoked: 40 +/- e-Cigarette/Vaping Use: Never Used Second Hand Smoke Exposure: No service: No Current occupational status: retired Cognitive needs: No Hearing needs: No Vision needs: No Questionnaire Thrive Questionnaire Date Thrive assessed: 10/14/23 LAURIE-7 AMB Questionnaire LAURIE-7 Date LAURIE - 7 assessed: 05/13/23 Source: Developed by Drs. Jun Bo, Kim Coello, Zach Corral and colleagues, with an educational jameel from [employer]. Physical exam (Primary Care) Vital Signs: Last Vital Signs Pulse 76 12/13/23 13:47 Resp 12 12/13/23 13:47 BP 138/54 L 12/13/23 13:47 Pulse Ox 100 12/13/23 13:47 Oxygen Delivery Method Room Air 12/13/23 13:47 Tobacco/Smoking Status: Tobacco use Status Tobacco use date assessed 05/13/23 12/13/23 14:02 Patient Tobacco Use Status Former Tobacco user 12/13/23 14:02 e-Cigarette/Vaping Use Never Used 12/13/23 14:02 Thrive Assessment: Date of Thrive Assessment Date Thrive assessed 10/14/23 12/13/23 14:02 Assessment and Plan Assessment & Plan (1) Abnormal CT of the abdomen: Code(s): R93.5 - Abnormal findings on diagnostic imaging of other abdominal regions, including retroperitoneum Plan: CTA is pending Sees GI tomorrow symptoms persist but stable (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
== END 2023-12-13 14:54 | disposition home or self-care (01) ==
PROVIDERS: PCP Internal Medicine; Visit Provider Internal Medicine
DX: R93.5 Abnormal findings on diagnostic imaging of other abdominal regions, including retroperitoneum (principal); I74.5 Embolism and thrombosis of iliac artery; K59.00 Constipation, unspecified

== ENCOUNTER → 2023-12-13 13:44 | Outpatient (BNVA) | payer MEDICARE, SELFPAY | PROVIDERS: PCP Internal Medicine; Visit Provider Internal Medicine | DX: K59.00 Constipation, unspecified (principal); I74.5 Embolism and thrombosis of iliac artery; R93.5 Abnormal findings on diagnostic imaging of other abdominal regions, including retroperitoneum; K21.9 Gastro-esophageal reflux disease without esophagitis; I10 Essential (primary) hypertension; E78.5 Hyperlipidemia, unspecified | CPT/HCPCS: 99212 ==

== ENCOUNTER 2023-12-14 11:57 | Outpatient (AMB) | payer MEDICARE, SELFPAY ==
--- NOTE | 2023-12-14 11:59 | MHC.OFFVIS ---
Vital Signs 12/14/23 12:01 Height 5 ft 3 in Weight 125 lb 10.616 oz BMI 22.3 BP not taken reason Patient Refused Intake Visit Reasons: Constipation Intake Note: Fabio presents in the office as a new patient for constipation - she states that she has been having this issue for a long time. She gets pains all over her stomach and takes Linzess for the constipation. Security Systems Engineer Required: No Allergies No Known Allergies Allergy (Mild, Verified 04/10/24 14:33) NONE HPI Comments Details: 83 y.o F who is here for second opinion for constipation. Reports diffuse lower abd pain with cramping since Dec with severe constipation. Prior to this was not having abd sx and regular formed BMs. Has 1 BM per week. Has to strain considerably. No blood in BM. Does not think linzess helping much. Also take fiber and miralax as needed. Had a CT abd/pel that is suggestive of pelvic floor dysfunction. 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 Pt herself does not report any postprandial abd pain or sitophobia. [facility] Medical History Allergic rhinitis HTN (hypertension) CAD (coronary artery disease) Bilateral carotid artery disease Hyperlipidemia Surgical History Stented coronary artery Hx of cardiac cath Hx of endoscopy Hx of colonoscopy Hx of eye surgery Hx of foot surgery Family History Mother CVD (cardiovascular disease) Social History Housing: House Alcohol intake: current Alcohol intake frequency: a few times a week Patient Tobacco Use Status: Former Tobacco user Years Smoked: 40 +/- e-Cigarette/Vaping Use: Never Used Second Hand Smoke Exposure: No service: No Current occupational status: retired Cognitive needs: No Hearing needs: No Vision needs: No Review of Systems Const All systems reviewed & are unremarkable except as noted in HPI and below Physical Exam Vital Signs: BMI result Body Mass Index 22.3 No apparent distress Nonicteric Abdomen soft, nondistended Alert and oriented x3, normal gait Results Reviewed Results Reviewed: CT abd/pel 09/2023: BLADDER: The bladder is partially distended and overall normal in contour. Best visualized on the sagittal view there is a relatively low position of the bladder, uterus, and anorectal junction when compared with the pubococcygeal line which can be seen in the setting of pelvic floor relaxation/pelvic floor dysfunction. GASTROINTESTINAL TRACT: There is a moderate hiatus hernia containing much of the proximal stomach. The stomach is otherwise unremarkable. Small and large bowel are normal in course and caliber. There is a normal appendix. No bowel wall inflammatory changes are seen. There is diverticulosis of the sigmoid colon. ABDOMINAL WALL: No significant hernia is appreciated. Assessment & Plan Assessment & Plan (1) Abnormal CT of the abdomen: Code(s): R93.5 - Abnormal findings on diagnostic imaging of other abdominal regions, including retroperitoneum Category: Medical (2) Lower abdominal pain: Code(s): R10.30 - Lower abdominal pain, unspecified Category: Medical (3) Pelvic floor dysfunction: Code(s): M62.89 - Other specified disorders of muscle Category: Medical (4) Constipation: Code(s): K59.00 - Constipation, unspecified Category: Medical Qualifiers: Constipation type: unspecified constipation type Qualified Code(s): K59.00 - Constipation, unspecified (5) Change in stool: Code(s): R19.5 - Other fecal abnormalities Category: Medical Plan Constipation/change in bowel habtis Discussed with the pt that longstanding constipation likely a combination of slow transit and outlet dysfunction given findings on CT. However, since she has been having relatively new onset of L sided pain and cramping at this age, would be prudent to proceed with a diagnostic endoscopy. This is to be preferably done after she has had the CTA to ensure does not need revascularization (although low suspicion clinically) Plan: - EGD/colo to be booked - Cont metamucil, miralax and linezz - Add senna or bisacodyl 2 tabs daily in AM - Elevate legs while having BM - XR defecography for dedicated pelvic floor evaluation - pt will be referred to [facility] radiology for this - EGD/colo to be booked for change in bowel habits in this 83 y.o Follow up after scopes Orders: Orders XR defecography 12/14/23 K59.00 - Constipation, unspecified Medications: New peg 3350-electrolytes 236-22.74-6.74 -5.86 gram (Golytely) as per split prep instructions, until fecal effluent is clear 240 mL PO Q10M 4,000 mL 0RF colonoscopy Patient Instructions: - Cont metamucil and miralax - Add senna 2 tabs daily in morning 30 mins before breakfast - [facility] Radiology dept will call you to schedule the XRAY test - My office will contact you to schedule the colonoscopy Coding Level of Care Code New Pt Level 4 (64733) Complex EM visit Add On G2211 Diagnoses Ab[address] CT of the abdomen R93.5 Lower abdominal pain R10.30 Pelvic floor dysfunction M62.89 Constipation, unspecified constipation type K59.00 Constipation type: unspecified constipation type Change in stool R19.5
[2023-12-14 12:01] VITALS: BMI 22.3
== END 2023-12-14 12:30 | disposition home or self-care (01) ==
PROVIDERS: PCP Internal Medicine; Visit Provider Internal Medicine
DX: R93.5 Abnormal findings on diagnostic imaging of other abdominal regions, including retroperitoneum (principal); R10.30 Lower abdominal pain, unspecified; M62.89 Other specified disorders of muscle; K59.00 Constipation, unspecified; R19.5 Other fecal abnormalities
CPT/HCPCS: 99499

== ENCOUNTER → 2023-12-14 11:57 | Outpatient (BNVA) | payer MEDICARE, SELFPAY | PROVIDERS: PCP Internal Medicine; Visit Provider Internal Medicine ==

== ENCOUNTER 2023-12-19 09:48 | Outpatient (REF) | payer MEDICARE, SELFPAY ==
[2023-12-19 12:02] LABS: Anion Gap 9 (12-20); Blood Urea Nitrogen 17 mg/dL (9-16); Calcium 9.5 mg/dL (8.4-10.2); Carbon Dioxide 29 mmol/L (22-29); Chloride 109 mmol/L (96-108); Estimated Glomerular Filt Rate > 60; Glucose Random 103 mg/dL (60-115); Potassium 4.9 mmol/L (3.3-5.1); Sodium 142 mmol/L (135-145)
== END 2023-12-19 09:49 | disposition home or self-care (01) ==
LOC: HO.WFDLDS 09:48
PROVIDERS: Visit Provider Internal Medicine
DX: R93.5 Abnormal findings on diagnostic imaging of other abdominal regions, including retroperitoneum (principal); I74.5 Embolism and thrombosis of iliac artery
CPT/HCPCS: 36415; 80048

== ENCOUNTER 2024-01-11 09:55 | Outpatient (REF) | payer MEDICARE, SELFPAY ==
--- NOTE | ~2024-01-11 | CT_ITS ---
EXAMINATION: CT ANGIOGRAM ABDOMEN AND PELVIS CLINICAL INFORMATION: Iliac artery thrombosis COMPARISON: CT abdomen and pelvis on 10/03/2023 TECHNIQUE: Multiple axial images were obtained through the abdomen and pelvis following the administration of 100 mL of Omnipaque 350 intravenous contrast. Images were reviewed on a dedicated 3-D workstation. This CT examination was performed using dose optimization techniques as appropriate, variously including the following: *Automated exposure control *Adjustment of mA and/or kV according to patient size (this includes techniques or standardized protocols for targeted exams where dose is matched to indication/reason for exam; i.e. extremities or head) *Use of iterative reconstruction technique DLP: 262 mGy-cm FINDINGS: FINDINGS: Lower chest: Unremarkable. There are no pleural effusions. Liver: Normal in size and attenuation. No focal lesions. Gallbladder and bile ducts: The gallbladder is normal. No intrahepatic or extrahepatic biliary ductal dilatation. Spleen: Normal in size and attenuation. Pancreas: Unremarkable. Adrenal glands: Unremarkable. Right kidney: The right kidney is normal. There is no hydronephrosis or hydroureter. Left kidney: The left kidney is normal. There is no hydronephrosis or hydroureter. Lymph nodes: There is no lymphadenopathy in the abdomen or pelvis. Gastrointestinal tract: Moderate hiatal hernia The stomach, small, and large bowel are normal in course and caliber. Colonic diverticulosis is noted. Urinary bladder: Decompressed. Pelvic organs: The uterus is atrophic. Vasculature: The abdominal aorta normal in caliber. There is moderate atherosclerotic disease. The celiac artery, SMA, and YAMILETH are patent. There is moderate atherosclerotic disease at the origin of the bilateral renal arteries. There is moderate stenosis of the proximal right common iliac artery secondary to mixed calcific and noncalcific atherosclerotic disease. There is mild stenosis of the proximal left common iliac artery. The external and internal iliac arteries are patent. There is atherosclerotic disease of the bilateral common femoral arteries resulting in mild stenosis. Additional findings: There is no intraperitoneal free air or fluid. Soft tissues: Unremarkable. Osseous structures: Degenerative disease of the lumbar spine. CT/CT angio abdomen pelvis IMPRESSION: 1. 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 2. Mild stenosis of the proximal left common iliac artery. 3. Mild stenosis of the bilateral common femoral arteries. Fleischner guidelines were followed. Electronically signed by: Jacquelin Shabazz MD 01/11/2024 04:27 PM EDT RP
[2024-01-11] MEDS: iohexoL 350 MG/ML 100 ML INFUS..BTL IV (10:32)
== END 2024-01-11 09:56 | disposition home or self-care (01) ==
LOC: HO.CT 09:55
PROVIDERS: PCP Internal Medicine; Visit Provider Internal Medicine
DX: I74.5 Embolism and thrombosis of iliac artery (principal); I77.9 Disorder of arteries and arterioles, unspecified; R10.30 Lower abdominal pain, unspecified; R63.5 Abnormal weight gain
CPT/HCPCS: 74174; Q9967

== ENCOUNTER 2024-04-10 14:08 | Outpatient (AMB) | payer MEDICARE, SELFPAY ==
--- NOTE | 2024-04-10 14:31 | MHC.PC.OV ---
Intake Visit Reasons: SAWV Intake Note: [facility]. Was supposed to have a colonoscopy on Tue but they cancelled due to possible risk with anesthesia. Needs Omeprazole 20 mg and xanax refilled. [employer]in[employer] Required: No Allergies No Known Allergies Allergy (Mild, Verified 04/10/24 14:33) NONE Tobacco use date assessed: 05/13/23 Fall risk assessment: No Falls in past year Last assessed Fall Risk: 04/10/24 Dental Screening Dental Screen Date: 05/13/23 HPI HPI Comments History of Present Illness Details The patient is a 82 year old female with a significant past medical history of hypertension, hyperlipidemia, GERD and anxiety presenting for AWV GI: see below -following with GI. She was scheduled for endoscopy recently however this is now on hold because she endorsed such shortness of breath they were worried about anesthesia. She has had previous cardiac caths scheduled through Dr Higuera office and has cancelled them for worry of interventional risk. We did speak at length today discussing that if she is too short of breath to walk around the home and do grocery shopping that it is imperative that she go through with the cardiac cath for potential intervention but also so that she is then able to complete her cardiac work up -She has also seen Dr Church and had testing for right common iliac artery stenosis and for ?of mesenteric ischemia. She has been seen recently for a 8 month history of constipation and overflow diarrhea. Saw Dr Lee for same issue in June and has appt for Dec planned. She has been prescribed metamucil, miralax, bentyl and lactulose. She used the first two for 2 bottles, continues to use the bentyl. Tells me no relief from these. She did not try the lactulose yet. She is getting abdominal pain and cramping with bowel movement. She had recent CT scan of the abdomen and pelvis without any acute pathology. It did show some non small pulmonary nodules and Bulky calcific plaque of the right common iliac artery which results in at least some degree of stenosis. Would correlate for symptoms of claudication. Patient denies increased pain with eating. She has not started the lactulose and is not in receipt of the linzess that I ordered her. She continues to suffer from the same symptoms. She is more anemic than on last check. She was able to get a GI visit slightly sooner-in November GI: Dr Britton Cardiac: Dr Carr Vascular: Dr Church [place] [facility] Ophtho: Dr Johnson HRA reviewed Independent ADLS with the exception of any exertional activity like cleaning the home and shopping. She pays someone to complete these tasks No memory impairment No falls Denies depression. Does have anxiety Care team as above Medications reconciled ROS see HPI PHYSICAL EXAM: GENERAL: Alert and oriented x 3. NAD EYES: EOMI. Anicteric. HENT: Moist mucous membranes. No scleral icterus. No cervical lymphadenopathy. LUNGS: Clear to auscultation bilaterally. CARDIOVASCULAR: Regular rate and rhythm. ABDOMEN: Soft, non-tender +bs EXTREMITIES: No edema. Non-tender. SKIN: No rashes or lesions. Warm. NEUROLOGIC: No focal neurological deficits. CN II-XII grossly intact PSYCHIATRIC: Cooperative. Appropriate mood and affect [facility] Medical History Allergic rhinitis HTN (hypertension) CAD (coronary artery disease) Bilateral carotid artery disease Hyperlipidemia Surgical History Stented coronary artery Hx of cardiac cath Hx of endoscopy Hx of colonoscopy Hx of eye surgery Hx of foot surgery Family History Mother CVD (cardiovascular disease) Social History Housing: House Alcohol intake: current Alcohol intake frequency: a few times a week Patient Tobacco Use Status: Former Tobacco user Years Smoked: 40 +/- e-Cigarette/Vaping Use: Never Used Second Hand Smoke Exposure: No service: No Current occupational status: retired Cognitive needs: No Hearing needs: No Vision needs: No Questionnaire Thrive Questionnaire Date Thrive assessed: 10/14/23 LAURIE-7 AMB Questionnaire LAURIE-7 Date LAURIE - 7 assessed: 05/13/23 Source: Developed by Drs. Jun Bo, Kim Coello, Zach Corral and colleagues, with an educational jameel from [employer]. Physical exam (Primary Care) Tobacco/Smoking Status: Tobacco use Status Tobacco use date assessed 05/13/23 04/10/24 14:38 Patient Tobacco Use Status Former Tobacco user 04/10/24 14:38 e-Cigarette/Vaping Use Never Used 04/10/24 14:38 Thrive Assessment: Date of Thrive Assessment Date Thrive assessed 10/14/23 04/10/24 14:38 Coding Level of Care Code Est Pt Level 4 (76865) Diagnoses Medicare annual wellness visit, subsequent Z00.00 Shortness of breath R06.02 Anemia, unspecified type D64.9 Anemia type: unspecified type Assessment & Plan Assessment & Plan (1) Medicare annual wellness visit, subsequent: Code(s): Z00.00 - Encounter for general adult medical examination without abnormal findings Category: Medical Plan: see HPI (2) Shortness of breath: Code(s): R06.02 - Shortness of breath Category: Medical Plan: recommend following through with cardiac cath She had ongoing abdominal/bowel issues and needs his for endoscopy as well (3) Anemia: Code(s): D64.9 - Anemia, unspecified Category: Medical Qualifiers: Anemia type: unspecified type Qualified Code(s): D64.9 - Anemia, unspecified Plan: Labs today Orders: Orders Complete Blood Count Auto Diff 04/10/24 D64.9 - Anemia, unspecified, K59.00 - Constipation, unspecified, R06.02 - Shortness of breath Comprehensive Met. Panel 04/10/24 D64.9 - Anemia, unspecified, K59.00 - Constipation, unspecified, R06.02 - Shortness of breath IRON PROFILE 04/10/24 D64.9 - Anemia, unspecified, K59.00 - Constipation, unspecified, R06.02 - Shortness of breath Vitamin B12 and Folate 04/10/24 D64.9 - Anemia, unspecified, K59.00 - Constipation, unspecified, R06.02 - Shortness of breath Medications: Refilled omeprazole 20 mg PO DAILY 90 caps 8RF alprazolam 0.5 mg PO Q6H PRN 90 tabs 5RF anxiety
--- OUTSIDE RECORDS SUMMARY | 2024-04-10 16:37 | XMS_ITS ---
Author Organization [facility] Address [address] [place] [address] Care Team Providers Care Buying Intern Name Role Phone Oleg Juarez MD Primary Care Provider Unavaila Jun Pineda Unavailable [phone] REASON FOR VISIT cancel appt on 01/06/2024 Encounters Encounter Location Date Provider Diagnosis [facility] [address] [place] [address] 12/14/2023 Jun Lee PLAN OF TREATMENT No Information
--- OUTSIDE RECORDS SUMMARY | 2024-04-10 16:37 | XMS_ITS ---
Author Organization [facility] Address [address] [place] [address] Care Team Providers Care Hairspring Setter Name Role Phone Oleg Juarez MD Primary Care Provider Unavaila Jun Pineda Unavailable [phone] REASON FOR VISIT abdominal pain Encounters Encounter Location Date Provider Diagnosis [facility] [address] [place] [address] 01/06/2024 Jun Lee PLAN OF TREATMENT No Information
--- OUTSIDE RECORDS SUMMARY | 2024-04-10 16:38 | XMS_ITS | Patient Health Record ---
Author Organization [facility] Address [address] [place] [phone] Care Team Providers Care Supervisor Plate Forming Name Role Phone Oleg Juarez MD Primary Care Provider Yan hernandez LeeDerek Unavailable [phone] ALLERGIES No Known Allergies REASON FOR REFERRAL No Information MEDICATIONS Medication SIG (Take, Route, Frequency, Duration) Notes Start Date End Date Status Dicyclomine HCl 10 MG 1 or 2 capsules Or ally Use every 6 hours as needed for abdominal cramps/discomfort for 30 day(s) 05/31/2023 Active Dicyclomine HCl 10 MG 1 or 2 capsules Or ally Every 6 hours to relieve any abdominal cramps or dicomfort for 90 days 07/07/2023 Active Aleve 220 MG 1 tablet Orally QD Active Allergy Active amLODIPine Besylate 5 MG Oral for 90 Active Ezetimibe 10 MG Oral for 90 Ac tive Omeprazole 20 MG 1 capsule Orally Onc e a day Active ALPRAZolam 0.5 MG 1 tablet Orally prn prn Active Aspir-81 81 MG 1 tablet Orally Once a day Active Atorvastatin Calcium 10 MG 1 tablet Oral ly Once a day Active Metamucil Active Toprol XL 100 MG 1 /2 tablet Orally O nce a day Active Meloxicam 15 MG TAKE 1 TABLET BY NAFISA TH EVERY DAY Oral for 30 Active Timolol Hemihydrate 0.5 % 1 drop into af fected eye Ophthalmic Once a day Active IMMUNIZATIONS Vaccine Route Administration Date Status Comme nts Influenza Unknown 03/28/2015 Administered SOCIAL HISTORY Sex Assigned At : Social History Observation Description Sex Assigned At Unknown PROBLEMS Problem Type ICD Code Onset Dates Problem Status W/U Status Risk SNOMED Code Notes Problem Change in bowel function (R19.4) Active confirmed 70481748 Problem Diarrhea (R19.7) Active confirmed 59636 008 Problem Irritable bowel syndrome with diarrhea (K58.0) Active confirmed 059937017 Problem Abdominal pain, acute, periumbilical (R10.33) Active confirmed 305956184 Problem Irritable bowel syndrome with constipation (K58.9) Active confirmed Irritable bowel syndrome characterized by constipation (415802567) Problem Abdominal cramps (R10.9) Active confirmed Abdominal pain (85987119) VITAL SIGNS Blood pressure diastolic 00 mm Hg 07/07/2023 Height 60.5 in 07/07/2023 Blood pressure systolic 0 mm Hg 07/07/2023 Weight 134 lbs 07/07/2023 BMI 25.74 kg/m2 07/07/2023 Encounters Encounter Location Date Provider Diagnosis [facility] [address] [place] [phone] 09/07/2023 Derek Lee [facility] [address] [place] [phone] 07/07/2023 Derek Lee Irritable bowel syndrome with constipation K58.9 and Abdominal cramps R10.9 [facility] [address] [place] [phone] 01/06/2024 Derek Lee [facility] [address] [place] [phone] 05/26/2023 Derek Lee [facility] [address] [place] [phone] 05/29/2023 Derek Lee [facility] [address] [place] [phone] 06/29/2023 Derek Lee [facility] [address] [place] [phone] 12/14/2023 Derek Lee ASSESSMENTS Encounter Date Diagnosis Assessment Notes Treatment Notes Treatment Clinical Notes 07/07/2023 Irritable bowel syndrome with constipation (ICD-10 - K58.9) Start using 2 Metamcuil capsules twice a day on a regular basis and a dose of Miralax once or twice a day to try to improve the BM regularity. Use the Dicyclomine capsules only when you are having the abdominal cramps 07/07/2023 Abdominal cramps (ICD-10 - R10.9) PLAN OF TREATMENT Future Test Test Name Order Date COLONOSCOPY 07/31/2015 Insurance Providers Payer Name Payer Address Payer Phone Subscriber Number Group Number Insured Name Patient Relationship to Insured Coverage Start Date Coverage End Date [employer] Medicare Adv (PPO) [address] [address] [place] [phone] [id number] SERA KRAMER Self - patient is the insured MEDICAL (GENERAL) HISTORY Medical History History ICD Code Denies AL,DM,CVA,Lung disease,renal dise ase Neuropathy in feet Glaucoma Carotid artery disease--followed by Dr. Quan Anxiety Hyperlipidemia Negative screening colonosco py in February [address] Jimenez, other than diverticulosis GERD--Negative upper endosco py in February [address] Jimenez, other than a described large hiatal hernia Negative colonoscopy with me in 07/2015. Biopsies revealed some nonspecific inflammation and were not felt to be definitive for collagenous or microscopic colitis. At that time she had been having diarrhea but her symptoms improved and she never came back for a followup visit. Therefore, any question of colitis was never treated. Negative laboratories for ce liac disease in 2016 in regard to diarrhea at that time CAD with 2 stents-sees Dr. Carr Surgical History Surgery Date(Month/Year) Cataract surgery Right foot cardiac stents - dr. carr
--- OUTSIDE RECORDS SUMMARY | 2024-04-10 16:38 | XMS_ITS ---
Author Organization [facility] Address [address] [place] [address] Care Team Providers Care Chief Meteorologist Name Role Phone Oleg Juarez MD Primary Care Provider Unavaila Jun Pineda Unavailable [phone] REASON FOR VISIT UNSPECIFIED ABDOMINAL PAIN Encounters Encounter Location Date Provider Diagnosis [facility] [address] [place] [address] 09/07/2023 Jun Lee PLAN OF TREATMENT No Information
== END 2024-04-10 15:31 | disposition home or self-care (01) ==
PROVIDERS: PCP Internal Medicine; Visit Provider Internal Medicine
DX: Z00.00 Encounter for general adult medical examination without abnormal findings (principal); R06.02 Shortness of breath; D64.9 Anemia, unspecified

== ENCOUNTER → 2024-04-10 14:08 | Outpatient (BNVA) | payer MEDICARE, SELFPAY | PROVIDERS: PCP Internal Medicine; Visit Provider Internal Medicine | DX: Z00.00 Encounter for general adult medical examination without abnormal findings (principal); R06.02 Shortness of breath; I10 Essential (primary) hypertension; E78.5 Hyperlipidemia, unspecified; K21.9 Gastro-esophageal reflux disease without esophagitis; F41.9 Anxiety disorder, unspecified; D64.9 Anemia, unspecified; K59.00 Constipation, unspecified; Z79.899 Other long term (current) drug therapy | CPT/HCPCS: 99212 ==

== ENCOUNTER 2024-04-25 10:35 | Outpatient (AMB) | payer MEDICARE, SELFPAY ==
--- NOTE | 2024-04-25 10:38 | A.OFFVIS_ITS ---
Vital Signs 04/25/24 10:39 Weight 128 lb BP 146/60 H Blood Pressure Location Lt brachial Position Sitting Pulse 86 Pulse Source Pulse Oximeter Pulse Oximetry (%) 96 Oxygen Delivery Method Room Air Intake Visit Reasons: Shortness of breath Power Plant Operators Supervisor Required: No Allergies No Known Allergies Allergy (Mild, Verified 04/25/24 10:43) NONE Medication List - Last Reconciled 04/25/24 by Felicita Lau LPN alprazolam 0.5 mg PO Q6H PRN amlodipine 5 mg PO DAILY aspirin (Adult Low Dose Aspirin) 81 mg PO DAILY atorvastatin 80 mg PO DAILY ezetimibe 10 mg PO DAILY 90 days hydrochlorothiazide 12.5 mg PO DAILY lactulose 20 grams (30 mL) PO BID linaclotide (Linzess) 145 mcg PO DAILY 90 days meloxicam 15 mg PO DAILY metoprolol succinate ER 50 mg (1/2 x 100 mg) PO DAILY 90 days omeprazole 20 mg PO DAILY peg 3350-electrolytes 236-22.74-6.74 -5.86 gram (Golytely) 240 mL PO Q10M timolol maleate 0.5% 1 drp ophthalmic (eye) DAILY HPI HPI Shortness of breath: Details: Fabio is pleasant 83 year old, former smoker, quit 30+ years ago with 20 pyh with underlying CAD s/p coronary stenting x 2, HTN and HLD. She was referred by GI for pulmonary evaluation. She has had progressively worsening dyspnea over the last few years with associated dry cough. Denies wheezing or chest tightness. Denies prior h/o asthma/COPD. She is under the care of cardiology with recent recommendation for cardiac cath as dyspnea is thought to be related to CAD. She has been reluctant to schedule this however has recently reconsidered and will be reaching out to cardiology to schedule. She denies BLE edema, orthopnea or chest pain. She reports son with asthma/allergies otherwise denies any pertinent family history. She denies any occupational exposures. She denies prior PFT or chest imaging. [facility] Medical History Allergic rhinitis HTN (hypertension) CAD (coronary artery disease) Bilateral carotid artery disease Hyperlipidemia Surgical History Stented coronary artery Hx of cardiac cath Hx of endoscopy Hx of colonoscopy Hx of eye surgery Hx of foot surgery Family History Mother CVD (cardiovascular disease) Social History Housing: House Alcohol intake: current Alcohol intake frequency: a few times a week Patient Tobacco Use Status: Former Tobacco user Years Smoked: 40 +/- e-Cigarette/Vaping Use: Never Used Second Hand Smoke Exposure: No service: No Current occupational status: retired Cognitive needs: No Hearing needs: No Vision needs: No Review of Systems Const Denies chills, Denies excessive sweating, Denies fever(s), Denies headache(s) and Denies night sweats Eyes Denies dry eyes, Denies irritation and Denies itchy eyes ENT Reports Normal hearing present, Denies headache(s), Denies nasal congestion, Denies nasal discharge, Denies post nasal drip and Denies sore throat Card Denies chest pain, Denies chest pain at rest, Denies chest pain with activity, Denies claudication, Denies leg edema, Denies orthopnea and Denies paroxysmal nocturnal dyspnea Resp Denies chest congestion, Denies excessive phlegm production, Denies pain on inspiration, Denies pain with cough, Denies stridor and Denies wheezing Musc Denies myalgias Neuro Reports Normal hearing present and Denies headache(s) Endo Denies excessive sweating Gil/Lymph Denies lymphadenopathy Aller/Immun Denies itchy eyes, Denies seasonal rhinorrhea and Denies wheezing Physical Exam Vital Signs: Last Vital Signs Pulse 86 04/25/24 10:39 BP 146/60 H 04/25/24 10:39 Pulse Ox 96 04/25/24 10:39 Oxygen Delivery Method Room Air 04/25/24 10:39 Const General: cooperative, healthy appearing, comfortable, no acute distress, well developed and alert Orientation/consciousness: patient oriented x3 Limitations: no limitations HEENT Head: Yes normal to inspection, Yes normocephalic and Yes atraumatic Ears: hearing grossly normal bilaterally and external ears normal Eyes General: appearance normal, both eyes and all related structures Eyelids: Yes eyelids normal Sclerae: sclerae normal EOM: EOMs intact bilaterally Neck Neck: Yes normal visual inspection and Yes no lymphadenopathy Lymphatic: no lymphadenopathy noted Chest Chest palpation & inspection: normal inspection of the chest Resp Effort & Inspection: normal respiratory effort, able to speak in complete sentences, no audible wheezes, no cough, no stridor, not tachypneic, no tripod positioning and no use of accessory muscles Auscultation: clear to auscultation bilaterally Cardio Jugular venous distension: no JVD Rate: regular rate Rhythm: regular rhythm Skin Other: warm, dry General skin exam: no rashes or lesions noted Neuro General: patient oriented x3 Cranial nerves: Yes Normal hearing present Cognition (Neuro): normal cognition Gait exam (Neuro): Normal gait present Extrem General: Yes normal to inspection, Yes capillary refill normal, Yes no clubbing, cyanosis or edema and Yes no pedal edema Psych Appearance: grossly normal and well kempt Speech and movement: Normal speech and movement present and Clear speech present Affect: normal affect Attitude: cooperative Thought process: Normal thought process present Thought content: Normal thought content present Insight: Good insight present (Psych) Judgement: Good judgement present (Psych) Assessment & Plan Assessment & Plan (1) Dyspnea: Code(s): R06.00 - Dyspnea, unspecified Category: Medical (2) Personal history of tobacco use: Code(s): Z87.891 - Personal history of nicotine dependence Category: Social Hx Plan Fabio presents for pulmonary evaluation for persistent dyspnea on exertion and dry cough. May have pulmonary contribution given prior smoking history however per cardiology records, dyspnea likely cardiac related. Will send for PFT to assess for an obstructive defect and CXR. All questions were answered and patient is in agreement of plan. Will follow up to review results or sooner if needed. Orders: Orders XR chest 2V Today R06.00 - Dyspnea, unspecified PFT pulmonary function test Today R06.00 - Dyspnea, unspecified Coding Level of Care Code New Pt Level 3 (76594) Diagnoses Dyspnea R06.00 Personal history of tobacco use Z87.891
[2024-04-25 10:39] VITALS: BP 146/60; PULSE 86; O2SAT 96
--- OUTSIDE RECORDS SUMMARY | 2024-04-25 12:41 | XMS_ITS ---
Author Organization [facility] Address [address] [place] [address] Care Team Providers Care Senior Manufacturing Technician Name Role Phone Oleg Juarez MD Primary Care Provider Unavaila Jun Pineda Unavailable [phone] REASON FOR VISIT UNSPECIFIED ABDOMINAL PAIN Encounters Encounter Location Date Provider Diagnosis [facility] [address] [facility] [address] [place] [address] 09/07/2023 Jun Lee PLAN OF TREATMENT No Information
--- OUTSIDE RECORDS SUMMARY | 2024-04-25 12:41 | XMS_ITS ---
Author Organization [facility] Address [address] [place] [address] Care Team Providers Care Gunite Nozzle Operator Name Role Phone Oleg Juarez MD Primary Care Provider Unavaila Jun Pineda Unavailable [phone] REASON FOR VISIT cancel appt on 01/06/2024 Encounters Encounter Location Date Provider Diagnosis [facility] [address] [place] [address] 12/14/2023 Jun Lee PLAN OF TREATMENT No Information
--- OUTSIDE RECORDS SUMMARY | 2024-04-25 12:41 | XMS_ITS | Patient Health Record ---
Author Organization [facility] Address [address] [place] [address] Care Team Providers Care Sales Agent Marine Insurance Name Role Phone Oleg Juarez MD Primary Care Provider Yan hernandez LeeDerek Unavailable [phone] ALLERGIES No Known Allergies REASON FOR REFERRAL [...] Change in bowel function (R19.4) Active confirmed 62172446 Problem Diarrhea (R19.7) Active confirmed 52927 008 Problem Irritable bowel syndrome with diarrhea (K58.0) Active confirmed 432334786 Problem Abdominal pain, acute, periumbilical (R10.33) Active confirmed 003148018 Problem Irritable bowel syndrome with constipation (K58.9) Active confirmed Irritable bowel syndrome characterized by constipation (963923258) Problem Abdominal cramps (R10.9) Active confirmed Abdominal pain (85288195) VITAL SIGNS Blood pressure diastolic 00 mm Hg 07/07/2023 Height 60.5 in 07/07/2023 Blood pressure systolic 0 mm Hg 07/07/2023 Weight 134 lbs 07/07/2023 BMI 25.74 kg/m2 07/07/2023 Encounters Encounter Location Date Provider Diagnosis [facility] [address] [place] [phone] 09/07/2023 Derek Lee [facility] [address] [place] [phone] 07/07/2023 Derek Lee Irritable bowel syndrome with constipation K58.9 and Abdominal cramps R10.9 [facility] [address] [place] [address] 01/06/2024 Derek Lee [facility] [address] [place] [address] 05/26/2023 Derek Lee [facility] [address] [place] [phone] 05/29/2023 Derek Lee [facility] [address] [place] [address] 06/29/2023 Derek Lee [facility] [address] [place] [phone] 12/14/2023 Derek Lee ASSESSMENTS Encounter Date Diagnosis [...] [employer] Medicare Adv (PPO) [address] [address] [place] [address] [id number] SERA KRAMER Self - patient is the insured MEDICAL (GENERAL) HISTORY Medical History History ICD Code Denies ME,DM,CVA,Lung disease,renal dise ase Neuropathy in feet Glaucoma [...]
--- OUTSIDE RECORDS SUMMARY | 2024-04-25 12:42 | XMS_ITS ---
Author Organization [facility] Address [address] [place] [address] Care Team Providers Care Warrant Clerk Name Role Phone Oleg Juarez MD Primary Care Provider Unavaila Jun Pineda Unavailable [phone] REASON FOR VISIT abdominal pain Encounters Encounter Location Date Provider Diagnosis [facility] [address] [place] [address] 01/06/2024 Jun Lee PLAN OF TREATMENT No Information
== END 2024-04-25 11:10 | disposition home or self-care (01) ==
PROVIDERS: PCP Internal Medicine; Referring Provider Internal Medicine; Visit Provider Nurse Practitioner Family
DX: R06.00 Dyspnea, unspecified (principal); Z87.891 Personal history of nicotine dependence
CPT/HCPCS: 99203

== ENCOUNTER → 2024-04-25 10:35 | Outpatient (BNVA) | payer MEDICARE, SELFPAY | PROVIDERS: PCP Internal Medicine; Referring Provider Internal Medicine; Visit Provider Nurse Practitioner Family | DX: R06.00 Dyspnea, unspecified (principal); Z87.891 Personal history of nicotine dependence | CPT/HCPCS: 99202 ==

== ENCOUNTER 2024-06-08 10:40 | Outpatient (REF) | payer MEDICARE, SELFPAY ==
--- NOTE | ~2024-06-08 | XR_ITS ---
EXAMINATION: XR CHEST CLINICAL INFORMATION: R06.00 - Dyspnea, unspecified COMPARISON: None available. TECHNIQUE: 2 views of the chest were obtained. FINDINGS: Heart size is normal. There are mitral annular and coronary artery calcifications. Mediastinal and hilar contours are normal. Aortic mural calcifications. The lungs are mildly hyperaerated, however clear bilaterally. There is no pneumothorax or pleural effusion. There is no focal osseous or soft tissue abnormality. There are spinal degenerative changes with a right convex lumbar scoliosis. There are mild to moderate shoulder joint arthritic changes. Loss of subacromial space may indicate rotator cuff tears. XR/XR chest 2V IMPRESSION: No active pulmonary disease. Diffuse vascular calcifications. Electronically signed by: Trey Rao MD 06/08/2024 01:10 PM EDT
--- NOTE | 2024-06-08 10:50 | PFT_ITS ---
Flows: FEV1: 89 % of predicted at 1.60 L FVC: 75 % of predicted at 1.77 L FEV1/FVC: 90 % Bronchodilator response: Absent Volumes: Total lung capacity: 89 % of predicted at 4.19 L Residual volume: 106 % of predicted at 2.22 L Slow vital capacity: 79 % of predicted at 1.97 L Expiratory reserve volume: 1 % of predicted at 0.0 L Diffusion capacity: Moderately decreased Impression: No obstructive or restrictive ventilatory defect. No bronchodilator response. Isolated defect in diffusion capacity suggests underlying pulmonary edema. Clinical correlation is advised. MTDD
[2024-06-08 11:30] VITALS: PULSE 57
--- OUTSIDE RECORDS SUMMARY | 2024-06-08 12:14 | XMS_ITS | Continuity of Care Document ---
Author Organization [facility] Address [address] [place] [phone] Care Team Providers Care Stitching Machine Setter Name Role Phone Belle SARAH, Felicita Waller Primary Care Physician [phone] Encounter [facility] Date(s): 05/01/24 - 05/08/24 [facility] [address] [place], [place] [address] Attending Physician: Mireille JI, Brenda Darling Admitting Physician: Mireille JI, Bernda Darling Referring Physician: Felicita Odonnell MD Encounter Type: Office Visit Allergies, Adverse Reactions, Alerts No Known Medication Allergies Immunizations Given and Recorded Vaccine Date Status Refusal Reason SARS-CoV-2 (COVID-19) mRNA BNT-162b2 vac 06/02/20 Given SARS-CoV-2 (COVID-19) mRNA BNT-162b2 vac 05/12/20 Given Medications Aleve = 220 mg, By Mouth, 0 Refills, Maintenance, 11/26/14 8:53:41 AM EDT Start Date: 11/26/14 Status: Ordered Repeat number: 1 Alprazolam 0.5 mg, By Mouth, PRN, Maintenance, as needed for anxiety, 11/26/14 8:52:58 AM EDT Start Date: 11/26/14 Status: Ordered Repeat number: 1 amLODIPine 5 mg oral tablet 5 mg, 1, tablet, By Mouth, Daily, Refills 0, Maintenance, 05/22/19 1:16:00 PM EST Start Date: 05/22/19 Status: Ordered Repeat number: 1 aspirin 81 mg oral tablet 1 tablet = 81 mg, By Mouth, Daily, # 30 tablet, 0 Refills, Maintenance, 11/26/14 8:53:32 AM EDT, Tablet Start Date: 11/26/14 Status: Ordered Quantity: 30.0 Unit: tablet Repeat number: 1 atorvastatin 10 mg oral tablet 1 tablet = 10 mg, By Mouth, Daily at bedtime, 0 Refills, Maintenance Start Date: 12/02/15 Status: Ordered Repeat number: 1 Isosorbide Mononitrate = 30 mg, By Mouth, 0 Refills, Maintenance, 03/31/16 9:28:01 AM EST Start Date: 03/31/16 Status: Ordered Repeat number: 1 metoprolol 25 mg oral tablet, extended release 25 mg, 1, tablet, By Mouth, Daily, Refills 0, Maintenance, 03/31/16 9:28:27 AM EST Start Date: 03/31/16 Status: Ordered Repeat number: 1 omeprazole 20 mg oral enteric coated capsule 1 capsule = 20 mg, By Mouth, Daily, # 30 capsule, 0 Refills, Maintenance, 11/26/14 8:53:17 AM EDT, ECCapsule Start Date: 11/26/14 Status: Ordered Quantity: 30.0 Unit: capsule Repeat number: 1 timolol 0.5% ophthalmic solution 1 drops, Eyes, Both, 2 times a day, # 10 mL, 0 Refills, Maintenance, 11/26/14 8:52:38 AM EDT, Solution Start Date: 11/26/14 Status: Ordered Quantity: 10.0 Unit: mL Repeat number: 1 Toprol XL 100 mg oral tablet, extended release 100 mg, 1, tablet, By Mouth, Daily, Refills 0, Maintenance, 05/22/19 1:17:00 PM EST Start Date: 05/22/19 Status: Ordered Repeat number: 1 Zetia 10 mg oral tablet 1 tablet = 10 mg, By Mouth, Daily, 0 Refills, Maintenance, 05/22/19 1:16:00 PM EST Start Date: 05/22/19 Status: Ordered Repeat number: 1 Problem List Condition Confirmation Course Effective Dates Status Health St atus Informant Carotid artery stenosis without cerebral infarction Confirmed Active Coronary artery disease Confirmed Active Superior mesenteric artery stenosis Confirmed Active Vital Signs Most recent to oldest [Reference Range]: 1 Height 160 cm (05/01/24 10:32 AM) Weight 56.81 kg (05/01/24 10:32 AM) Body Mass Index [18.5-24.99 kg/m2] 22.19 kg/m2 (05/01/24 10:32 AM) Weight Obtained Via Patient/family state d (05/01/24 10:32 AM) Social History Social History Type Response Smoking Status Former smoker; Tobac co user in household: No entered on: 12/02/15 Sex Sex Representation Female (finding) Note * Devi Diop: PERFORM Event Display: Patient Education/Instruction Authored Date: Ambulatory Adult Visit Summary [address] [address] Name: SERA KRAMER : 1940?? Visit: 05/01/2024 06:46?? Ambulatory Visit Instructions ?? Your Care Team Primary Care Provider Belle SARAH, Felicita Waller? This Visit Provider Brenda Kendrick NP Your Diagnosis Carotid artery stenosis Vitals Signs Height: 160 cm Weight: 56.81 kg Body Mass Index: 22.19 kg/m2 Body surface area: 1.59 What to do next Follow-Up Appointments Follow Up with??Brenda Kendrick NP When:??08/08/2024 10:30 AM EDT Where: [address] [place] [address] [place] [address]- Follow Up with??[facility] When:??08/02/2024 01:00 PM EDT Where: [address] [place] [phone] Medications The list below reflects the information in our records and provided by you today along with any changes made during this visit. Please continue your medications until treatment is completed or stopped by your provider. If this is different from the information you have or there are other questions,please contact the prescribing provider. What How Much When Instructions Unchanged Alprazolam 0.5 Milligram Oral As needed for as needed for anxiety Unchanged Amlodipine (amLODIPine 5 mg oral tablet) 1 tab(s) Oral Daily Unchanged Aspirin (aspirin 81 mg oral tablet) 1 tab(s) Oral Daily Unchanged Atorvastatin (atorvastatin 10 mg oral tablet) 1 tab(s) Oral Daily at Bedtime Unchanged Ezetimibe (Zetia 10 mg oral tablet) 1 tab(s) Oral Daily Unchanged Isosorbide Mononitrate 30 Milligram Oral Unchanged Metoprolol (metoprolol 25 mg oral tablet, extended release) 1 tab(s) Oral Daily Unchanged Metoprolol (Toprol XL 100 mg oral tablet, extended release) 1 tab(s) Oral Daily Unchanged Naproxen (Aleve) 220 Milligram Oral Unchanged Omeprazole (omeprazole 20 mg oral enteric coated capsule) 1 capsule Oral Daily Unchanged Timolol Ophthalmic (timolol 0.5% ophthalmic solution) 1 Drops Both eyes Twice a day Medications and Immunizations Administered Medications Given During Visit No medications given during this visit.?? Allergies (NKA means No Known Allergies) No Known Medication Allergies Common Emergency Awareness Tips IS IT A STROKE? Act FAST and Check for these signs: FACE Does the face look uneven? ARM Does one arm drift down? SPEECH Does their speech sound strange? TIME Call at any sign of stroke ?? Heart Attack Signs Chest discomfort: Most heart attacks involve discomfort in the center of the chest and lasts more than a few minutes, or goes away and comes back. It can feel like uncomfortable pressure, squeezing, fullness or pain. Discomfort in upper body: Symptoms can include pain or discomfort in one or both arms, back, neck, jaw or stomach. Shortness of breath: With or without discomfort. Other signs: Breaking out in a cold sweat, nausea, or lightheaded. Remember, MINUTES DO MATTER. If you experience any of these heart attack warning signs, call to get immediate medical attention! ?? Smoking can increase your chances of developing chronic health problems and can cause harmful effects to other family members in your house. If you smoke, you are strongly encouraged to quit. Please call [employer] at [phone] or 0-395-021TradingScreen (4344) or log in to [email or web address] for referrals to smoking cessation programs. ?? The National Suicide Prevention Hotline is available 18/10 if you or someone you know needs to find a reason to keep living. By calling 6-109-147-Sports MatchMaker (4579) you'll be connected to a skilled, trained counselor at a crisis center in your area. [facility] GetSnippy Portal You can view and manage your care through the patient portal or by using a health care pinky of your choosing. [email or web address] is a website that allows you to securely view your medical information including your hospital discharge summary, office visit summaries, medications and follow-up visits. You can also request appointments, renew medications, and request access to your medical information using a health care pinky of your choosing, or just ask a question. You can enroll at [email or web address] or register during your next office visit. [facility], in keeping with [facility] guidance, no longer requires face masks for staff, patientsor visitors in most situations. Similiar to time spent indoors at other locations, there is the chance that you were exposed to repiratory viruses during your time with us (such as flu or COVID-19). If you develop symptoms concerning for a viral respiratory infection, please seek testing (and treatment if indicated) from your medical provider or home test kit. ?? Disclaimer: The information provided is of a general nature and is intended to be used in conjunction with the recommendations and advice of your health care practitioner. Every effort has been made to ensure that the information provided is accurate and complete at the time it is provided to you however, as your needs change, or, as new information becomes available, different or additional instructions may be required. ?? If you have questions, please consult with your primary care provider or pharmacist, as appropriate. This information is not intended to serve as substitution for assessment and evaluation by a qualified health care provider. If you do not have a primary care provider, you may find a [facility] provider by calling [facility] Get[facility] at [phone]. Patient Care team information Care Team Personnel Name: Felicita Odonnell MD Position: Reference Physician Member Role: PCP Address: [address] [place] [id number] Telecom: Care Team Related Persons Name: CLEOPATRA MCWILLIAMS Name: DEREK KRAMER Insurance Providers Guarantor name: SERA KRAMER Health Plan Information #: 1 Payer: [employer] Member Number: [id number] Policy Number: NA Group Number: [id number] Health Plan Information #: 2 Payer: [employer] H[employer] Member Number: [id number] Policy Number: NA Group Number: [id number]
--- OUTSIDE RECORDS SUMMARY | 2024-06-08 12:14 | XMS_ITS | Patient Health Record ---
Author Organization [facility] Address [address] [place] [address] Care Team Providers Care External Auditor Name Role Phone Oleg Juarez MD Primary Care Provider Yan hernandez LeeDerek Unavailable [phone] Allergies No Known Allergies Reason For Referral No Information Medications Medication SIG (Take, Route, Frequency, Duration) Notes [...] fected eye Ophthalmic Once a day Active Immunizations Vaccine Route Administration Date Status Comme nts Influenza Unknown 03/28/2015 Administered Problems Problem Type SNOMED Code ICD Code Onset Dates Problem Status W/U Status Risk Notes Problem 06526948 Diarrhea (R19.7) Active confirmed Problem 210421320 Irritable bowel syndrome with diarrhea (K58.0) Active confirmed Problem Irritable bowel syndrome characterized by constipation (098699110) Irritable bowel syndrome with constipation (K58.9) Active confirmed Problem 84794406 Change in bowel function (R19.4) Active confirmed Problem Abdominal pain (90925323) Abdominal cramps (R10.9) Active confirmed Problem 363711157 Abdominal pain, acute, periumbilical (R10.33) Active confirmed Vital Signs Blood pressure diastolic 00 mm Hg 07/07/2023 Height 60.5 in 07/07/2023 Blood pressure systolic 0 mm Hg 07/07/2023 Weight 134 lbs 07/07/2023 BMI 25.74 kg/m2 07/07/2023 Encounters Encounter Location Date Provider Diagnosis [facility] [address] [place] [address] 07/07/2023 Derek Lee Irritable bowel syndrome with constipation K58.9 and Abdominal cramps R10.9 [facility] [address] [address] 06/29/2023 Derek Lee [facility] [address] [place] [phone] 12/14/2023 Derek Lee Assessments Encounter Date Diagnosis (ICD Code) Assessment Notes Treatment Notes Treatment Clinical Notes Section Notes 07/07/2023 Irritable bowel syndrome with constipation (ICD-10 - K58.9) Start using 2 Metamcuil capsules twice a day on a regular basis and a dose of Miralax once or twice a day to try to improve the BM regularity. Use the Dicyclomine capsules only when you are having the abdominal cramps Overall, Tracy appears well from a clinical standpoint. We did have a detailed discussion today regarding her long-standing GI complaints. Given her long-standing symptomatology ranging from some loose stools to constipation, her negative studies over the years, and her good clinical appearance currently with a benign abdominal exam, we reviewed that all of this is quite consistent with irritable bowel syndrome. At the present time it seems that constipation and abdominal cramping are the main symptoms that are causing a problem for her. As such, I recommended that she split the Metamucil into 2 doses during the day consisting of 2 capsules in the morning and 2 in the evening with plenty of fluids. I also advised her to stay on a healthy and high-fiber diet with plenty of fluids. Lastly, I advised her to begin using MiraLax at least once or twice a day to help facilitate bowel movements as well. I did advise her to use the dicyclomine only if she is having some significant abdominal cramps that she wants to try to relieve rather than just using it preventively . I advised her that using the dicyclomine too much or too regularly could actually cause some decreased GI tract motility and could actually make the constipation somewhat worse. At this point I don't think she needs any other studies such as endoscopic procedures, imaging studies, or laboratories given her clinical history, negative studies in the past, and her overall good clinical appearance. I will plan to see her in the Fall For a followup visit but did advise her to definitely call me in the interim if she has any problems or questions I can be of assistance with. Tracy was very comfortable with this plan. Thank you again for allowing me to participate in Tracy's care. I shall continue to keep you advised of her progress. 07/07/2023 Abdominal cramps (ICD-10 - R10.9) Overall, Tracy appears well from a clinical standpoint. We did have a detailed discussion today regarding her long-standing GI complaints. Given her long-standing symptomatology ranging from some loose stools to constipation, her negative studies over the years, and her good clinical appearance currently with a benign abdominal exam, we reviewed that all of this is quite consistent with irritable bowel syndrome. At the present time it seems that constipation and abdominal cramping are the main symptoms that are causing a problem for her. As such, I recommended that she split the Metamucil into 2 doses during the day consisting of 2 capsules in the morning and 2 in the evening with plenty of fluids. I also advised her to stay on a healthy and high-fiber diet with plenty of fluids. Lastly, I advised her to begin using MiraLax at least once or twice a day to help facilitate bowel movements as well. I did advise her to use the dicyclomine only if she is having some significant abdominal cramps that she wants to try to relieve rather than just using it preventively . I advised her that using the dicyclomine too much or too regularly could actually cause some decreased GI tract motility and could actually make the constipation somewhat worse. At this point I don't think she needs any other studies such as endoscopic procedures, imaging studies, or laboratories given her clinical history, negative studies in the past, and her overall good clinical appearance. I will plan to see her in the Fall For a followup visit but did advise her to definitely call me in the interim if she has any problems or questions I can be of assistance with. Tracy was very comfortable with this plan. Thank you again for allowing me to participate in Tracy's care. I shall continue to keep you advised of her progress. Plan Of Treatment Future Test Test Name Order Date COLONOSCOPY 07/31/2015 Insurance Providers Payer Name Payer Address Payer Phone Subscriber Number Group Number Insured Name Patient Relationship to Insured Coverage Start Date Coverage End Date [employer] Medicare Adv (PPO) [address] [address] [place] [address] [id number] ESTEFANIA KRAMERINA Self - patient is the insured Medical (General) History Medical History History ICD Code Denies ID,DM,CVA,Lung disease,renal dise ase Neuropathy in feet Glaucoma [...] Negative laboratories for ce liac disease in 2015 in regard to diarrhea at that time CAD with 2 stents-sees Dr. Carr Surgical History Surgery Date(Month/Year) Cataract surgery Right foot cardiac stents - dr. carr
--- OUTSIDE RECORDS SUMMARY | 2024-06-08 12:15 | XMS_ITS ---
Author Organization [facility] Address [address] [place] [address] Care Team Providers Care Biblical Languages Professor Name Role Phone Ann SARAH, Oleg Primary Care Provider Renataa Derek Pineda Unavailable [phone] REASON FOR VISIT abdominal pain Encounters Encounter Location Date Provider Diagnosis [facility] [address] [facility] [address] [place] [phone] 01/06/2024 Derek Lee Plan Of Treatment No Information Progress Notes * SERA KRAMER GDOB:[birth year] (83 yo F)Acc No.[id number]:01/06/2024 Progress Notes Patient:?SERA KRAMER Provider:?Derek Lee MD :1940???Age:83 Y???Sex:Female D ate:01/06/2024 Address:[address] [place], [place] [id number] Pcp:Oleg Juarez MD Subjective: * Chief Complaints: * ???1. Abdominal pain. * Medical History:? Objective: * Vitals:? Assessment: Plan: * Treatment: * * The named appointment provid er may or may not be the originator of this progress note, and it is not deemed complete until electronically signed by the appointment provider. Sign off status: Pending * Provider:?Derek Lee MD Date:? 024 Generated for Milvia sweeney/Caroleg/eTransmitting on:?06/08/2024 12:14 PM EDT
--- OUTSIDE RECORDS SUMMARY | 2024-06-08 12:15 | XMS_ITS ---
Author Organization [facility] Address [address] [place] [address] Care Team Providers Care Abrasive Grader Helper Name Role Phone Ann SARAH, Oleg Primary Care Provider Renataa Derek Pineda Unavailable [phone] REASON FOR VISIT UNSPECIFIED ABDOMINAL PAIN Encounters Encounter Location Date Provider Diagnosis [facility] [address] [facility] [address] [place] [address] 09/07/2023 Derek Lee Plan Of Treatment No Information Progress Notes * SERA KRAMER GDOB:[birth year] (83 yo F)Acc No.[id number]:09/07/2023 Progress Notes Patient:?SERA KRAMER Provider:?Derek Lee MD :1940???Age:82 Y???Sex:Female D ate:09/07/2023 Address:[address] [place], [place] [id number] Pcp:Oleg Juarez MD Subjective: * Chief Complaints: * ???1. UNSPECIFIED ABDOMINAL PAIN. * Medical History:? Objective: * Vitals:? Assessment: Plan: * Treatment: * * The named appointment provid er may or may not be the originator of this progress note, and it is not deemed complete until electronically signed by the appointment provider. Sign off status: Pending * Provider:?Derek Lee MD Date:? 024 Generated for Chinedui ng/Fapatg/eTransmitting on:?06/08/2024 12:14 PM EDT
--- OUTSIDE RECORDS SUMMARY | 2024-06-08 12:15 | XMS_ITS ---
Author Organization [facility] Address [address] [facility] [address] [place] [address] Care Team Providers Care Manager Office Name Role Phone Oleg Juarez MD Primary Care Provider Renataa Derek Pineda Unavailable [phone] REASON FOR VISIT cancel appt on 01/06/2024 Encounters Encounter Location Date Provider Diagnosis [facility] [address] [place] [phone] 12/14/2023 Derek Lee Plan Of Treatment No Information Progress Notes * SERA KRAMER GDOB:[birth year] (83 yo F)Acc No.[id number]:12/14/2023 Patient:?ESTEFANIA KRAMERINA Sandhya :1940???Age:83 Y???Sex:Female Address:[address] [place] [address], [address] * true * Date:? Generated for Milvia sweeney/Erik/eTransmitting on:?06/08/2024 12:14 PM EDT
== END 2024-06-08 10:41 | disposition home or self-care (01) ==
LOC: HO.RESP 10:40
PROVIDERS: PCP Internal Medicine; Visit Provider Nurse Practitioner Family
DX: R06.00 Dyspnea, unspecified (principal)
CPT/HCPCS: 71046; 94010; 94640; 94727; 94729

== ENCOUNTER → 2024-06-08 10:50 | Outpatient (BNV) | payer MEDICARE, SELFPAY | PROVIDERS: PCP Internal Medicine; Visit Provider Internal Medicine Pulmonary Disease | DX: R06.00 Dyspnea, unspecified (principal) | CPT/HCPCS: 94060; 94727; 94729 ==

== ENCOUNTER → 2024-06-08 11:33 | Outpatient (BNV) | payer MEDICARE, SELFPAY | PROVIDERS: PCP Internal Medicine; Visit Provider Radiology Diagnostic Radiology | DX: R06.00 Dyspnea, unspecified (principal) | CPT/HCPCS: 71046 ==

== ENCOUNTER 2024-06-12 08:38 | Outpatient (AMB) | payer MEDICARE, SELFPAY ==
[2024-06-12 08:42] VITALS: BP 138/52; PULSE 57; BMI 22.5
--- NOTE | 2024-06-12 08:42 | A.OFFVIS_ITS ---
Vital Signs 06/12/24 08:42 Height 5 ft 3 in Weight 126 lb 15.78 oz BMI 22.5 BP 138/52 L Blood Pressure Location Lt brachial Position Sitting Pulse 57 Pulse Source Monitor Intake Visit Reasons: Follow up/SOB Simulation Technician Required: No Allergies No Known Allergies Allergy (Mild, Verified 06/12/24 08:47) NONE Medication List - Last Reconciled 06/12/24 by Dia Chairez, ALTERATION TAILOR-C alprazolam 0.5 mg PO Q6H PRN amlodipine 5 mg PO DAILY aspirin (Adult Low Dose Aspirin) 81 mg PO DAILY atorvastatin 80 mg PO DAILY ezetimibe 10 mg PO DAILY 90 days hydrochlorothiazide 12.5 mg PO DAILY lactulose 20 grams (30 mL) PO BID linaclotide (Linzess) 145 mcg PO DAILY 90 days meloxicam 15 mg PO DAILY metoprolol succinate ER 50 mg (1/2 x 100 mg) PO DAILY 90 days omeprazole 20 mg PO DAILY peg 3350-electrolytes 236-22.74-6.74 -5.86 gram (Golytely) 240 mL PO Q10M timolol maleate 0.5% 1 drp ophthalmic (eye) DAILY HPI HPI Follow up/SOB: Details: Hanny is an 83-year-old female past medical history of hypertension, hyperlipidemia, CAD with multivessel PCI in the past, prior smoking, diastolic dysfunction who presents for follow-up. Today she reports that she believes her breathing is getting worse as time goes on. She says she can only do light activities and has to sit and rest. She denies PND, orthopnea or edema. No chest discomfort at rest or with activity. No lightheadedness, presyncope, syncope. She reports unsteadiness and ambulates with a walking stick for balance. Compliant with meds. Has been under high stress recently as her fell and fractured his hip and is now in a halfway while he recovers. [facility] Medical History Allergic rhinitis HTN (hypertension) CAD (coronary artery disease) Bilateral carotid artery disease Hyperlipidemia Surgical History Stented coronary artery Hx of cardiac cath Hx of endoscopy Hx of colonoscopy Hx of eye surgery Hx of foot surgery Family History Mother CVD (cardiovascular disease) Social History Housing: House Alcohol intake: current Alcohol intake frequency: a few times a week Patient Tobacco Use Status: Former Tobacco user Years Smoked: 40 +/- e-Cigarette/Vaping Use: Never Used Second Hand Smoke Exposure: No service: No Current occupational status: retired Cognitive needs: No Hearing needs: No Vision needs: No Review of Systems Const All systems reviewed & are unremarkable except as noted in HPI and below ENT Denies dizziness Card Denies chest pain, Denies chest pain at rest, Denies chest pain with activity, Denies rapid heart rate, Denies pedal edema, Denies edema, Denies leg edema, Denies lightheadedness, Denies palpitations, Reports dyspnea, Reports dyspnea on exertion and Denies orthopnea Resp Denies cough, Reports dyspnea and Reports dyspnea on exertion GI Denies hematochezia and Denies change in stool character Musc Denies abnormal gait, Denies limited range of motion, Denies muscle cramps, Denies muscle weakness, Denies numbness, Denies radiating pain into limb, Denies stiffness and Denies tingling Neuro Denies abnormal gait, Denies dizziness, Denies numbness and Denies tingling Endo Denies palpitations Physical Exam Vital Signs: Last Vital Signs Pulse 57 06/12/24 08:42 BP 138/52 L 06/12/24 08:42 BMI result Body Mass Index 22.5 Const Other: elderly, somewhat frail, ambulates with walking stick for balance. General: cooperative, comfortable and no acute distress Orientation/consciousness: patient oriented x3 Neck Neck: Yes normal visual inspection and Yes no JVD Resp Effort & Inspection: normal respiratory effort Auscultation: clear to auscultation bilaterally, no crackles, no rales, no rhonchi and no wheezes Cardio Jugular venous distension: no JVD Rate: regular rate Rhythm: regular rhythm Heart sounds: S1 normal heart sound present, S2 normal heart sound present, no gallops, no murmurs and no rubs Neuro General: patient oriented x3 Extrem General: Yes normal to inspection, No no pedal edema and No calf tenderness Psych Appearance: grossly normal Mental Status: mental status grossly normal Speech and movement: Normal speech and movement present Office Procedures EKG Details: Today read by me, sinus bradycardia, peaked T-wave V2, similar to prior, rate 57, QTC 406 milliseconds 06602-Naaxitdvxbpugorgt, Complete Assessment & Plan Assessment & Plan (1) CAD (coronary artery disease): Code(s): I25.10 - Atherosclerotic heart disease of [place] coronary artery without angina pectoris Category: Medical Plan: History of CAD with coronary stents in place. She has symptoms of shortness of breath with exertion, worsening with time. Last echo 06/20/2023 showed EF 65%, grade 2 diastolic dysfunction, moderate mitral annular calcification and mild pulmonary hypertension. On last visit a diagnostic cardiac catheterization was ordered however she did not pursue having the procedure at that time. She is now interested in pursuing cardiac catheterization due to her progressive symptom. EKG today shows sinus bradycardia, no ischemic changes. Will arrange for diagnostic cardiac catheterization in the near future. Preprocedure labs ordered. Cardiology follow-up 2 weeks post cath, sooner if needed. (2) Dyspnea: Code(s): R06.00 - Dyspnea, unspecified Category: Medical Plan: Chronic shortness of breath with activity. Cardiac catheterization pending. She recently was seen in pulmonology and had a chest x-ray which showed no acute findings. She did have a pulmonary function test on 06/08/2024 which showed decreased diffusion capacity suggesting pulmonary edema. She does not appear fluid overloaded on exam today. Will check labs today including BMP and BNP. She is on hydrochlorothiazide. If BNP is elevated will consider change to low- dose Lasix. (3) HTN (hypertension): Code(s): I10 - Essential (primary) hypertension Category: Medical Plan: Controlled at present. Continue metoprolol and hydrochlorothiazide. (4) Hyperlipidemia: Code(s): E78.5 - Hyperlipidemia, unspecified Category: Medical Plan: [facility] LDL goal less than 70. Labs done 07/27/2023 showed LDL 67. Continue high- dose atorvastatin and Zetia. (5) Personal history of tobacco use: Code(s): Z87.891 - Personal history of nicotine dependence Category: Social Hx Plan: Prior history of smoking. This may contribute to her shortness of breath with activity. Plan Time spent on chart review, documentation, interview and assessment Orders: Orders B Type Natriuretic Peptide Today R06.00 - Dyspnea, unspecified Basic Metabolic Panel Today R06.00 - Dyspnea, unspecified Coding Level of Care Code Est Pt Level 4 (51692) Complex EM visit Add On G2211 Diagnoses CAD (coronary artery disease) I25.10 Dyspnea R06.00 HTN (hypertension) I10 Hyperlipidemia E78.5 Personal history of tobacco use Z87.891 CPT Codes EKG - CPT: 25723-Bwldbyhdvdjgzqvre, Complete ([id number]) Time Spent (min) 32
--- OUTSIDE RECORDS SUMMARY | 2024-06-12 08:57 | XMS_ITS ---
Author Organization [facility] Address [address] [place] [address] Care Team Providers Care Magazine Worker Name Role Phone Oleg Juarez MD Primary Care Provider Renataa Derek Pineda Unavailable [phone] REASON FOR VISIT cancel appt on 01/06/2024 Encounters Encounter Location Date Provider Diagnosis [facility] [address] [facility] [address] [place] [address] 12/14/2023 Derek Lee Plan Of Treatment No Information Progress Notes * SERA KRAMER GDOB:[birth year] (83 yo F)Acc No.[id number]:12/14/2023 Patient:?ESTEFANIA KRAMERINA Sandhya :1940???Age:83 Y???Sex:Female Address:[address] [place] [address], [address] * true * Date:? Generated for Milvia sweeney/Erki/eTransmitting on:?06/12/2024 08:57 AM EDT
--- OUTSIDE RECORDS SUMMARY | 2024-06-12 08:57 | XMS_ITS ---
Author Organization [facility] Address [address] [place] [address] Care Team Providers Care School Teacher Name Role Phone Ann SARAH, Oleg Primary Care Provider Renataa Derek Pineda Unavailable [phone] REASON FOR VISIT abdominal pain Encounters Encounter Location Date Provider Diagnosis [facility] 10 [address] [facility] [address] [place] [address] 01/06/2024 Derek Lee Plan Of Treatment No Information Progress Notes * SERA KRAMER GDOB:[birth year] (83 yo F)Acc No.[id number]:01/06/2024 Progress Notes Patient:?SERA KRAMER Provider:?Derek Lee MD :1940???Age:83 Y???Sex:Female D ate:01/06/2024 Address:[address] [place], [place] [id number] Pcp:Oleg Juarez MD Subjective: * Chief Complaints: [...] Lee MD Date:? 024 Generated for Milvia sweeney/Erik/eTransmitting on:?06/12/2024 08:57 AM EDT
--- OUTSIDE RECORDS SUMMARY | 2024-06-12 08:57 | XMS_ITS ---
Author Organization [facility] Address [address] [place] [address] Care Team Providers Care Forming And Assembling Supervisor Name Role Phone Ann SARAH, Oleg Primary Care Provider Renataa Derek Pineda Unavailable [phone] REASON FOR VISIT UNSPECIFIED ABDOMINAL PAIN Encounters Encounter Location Date Provider Diagnosis [facility] [address] [place] [address] 09/07/2023 Derek Lee Plan Of Treatment No Information Progress Notes * SERA KRAMER GDOB:[birth year] (83 yo F)Acc No.[id number]:09/07/2023 Progress Notes Patient:?SERA KRAMER Provider:?Derek Lee MD :1940???Age:82 Y???Sex:Female D ate:09/07/2023 Address:[address] [place], [place] [id number] Pcp:Oleg Juarez MD Subjective: * Chief Complaints: [...] MD Date:? 024 Generated for Chinedui ng/Fapatg/eTransmitting on:?06/12/2024 08:57 AM EDT
--- OUTSIDE RECORDS SUMMARY | 2024-06-12 08:57 | XMS_ITS | Patient Health Record ---
Author Organization [facility] Address [address] [place] [address] Care Team Providers Care Software Engineer Web Services Name Role Phone Oleg Juarez MD Primary Care Provider Yan hernandez LeeDerek Unavailable [phone] Allergies No Known Allergies Reason For Referral [...] Problem Status W/U Status Risk Notes Problem 43370854 Diarrhea (R19.7) Active confirmed Problem 718778680 Irritable bowel syndrome with diarrhea (K58.0) Active confirmed Problem Irritable bowel syndrome characterized by constipation (870881896) Irritable bowel syndrome with constipation (K58.9) Active confirmed Problem 51831910 Change in bowel function (R19.4) Active confirmed Problem Abdominal pain (07148118) Abdominal cramps (R10.9) Active confirmed Problem 283916361 Abdominal pain, acute, periumbilical (R10.33) Active confirmed Vital Signs Blood pressure diastolic 00 mm Hg 07/07/2023 Height 60.5 in 07/07/2023 Blood pressure systolic 0 mm Hg 07/07/2023 Weight 134 lbs 07/07/2023 BMI 25.74 kg/m2 07/07/2023 Encounters Encounter Location Date Provider Diagnosis [facility] [address] [place] [phone] 07/07/2023 Derek Lee Irritable bowel syndrome with constipation K58.9 and Abdominal cramps R10.9 [facility] [address] [address] 06/29/2023 Derek Lee [facility] [address] [place] [phone] 12/14/2023 Derek Lee Assessments Encounter Date Diagnosis [...] [employer] Medicare Adv (PPO) [address] [address] [place] [id number] ESTEFANIA KRAMERINA Self - patient is the insured Medical (General) History Medical History History ICD Code Denies MA,DM,CVA,Lung disease,renal dise ase Neuropathy in feet Glaucoma [...]
== END 2024-06-12 09:25 | disposition home or self-care (01) ==
PROVIDERS: PCP Internal Medicine; Visit Provider Nurse Practitioner Family
DX: I25.10 Atherosclerotic heart disease of native coronary artery without angina pectoris (principal); R06.00 Dyspnea, unspecified; I10 Essential (primary) hypertension; E78.5 Hyperlipidemia, unspecified; Z87.891 Personal history of nicotine dependence
CPT/HCPCS: 93010; 99214; G2211

== ENCOUNTER 2024-06-12 09:52 | Outpatient (REF) | payer MEDICARE, SELFPAY ==
[2024-06-12 11:46] LABS: Anion Gap 10 (12-20); Blood Urea Nitrogen 13 mg/dL (9-16); Calcium 9.2 mg/dL (8.4-10.2); Carbon Dioxide 27 mmol/L (22-29); Chloride 107 mmol/L (96-108); Estimated Glomerular Filt Rate > 60; Glucose Random 90 mg/dL (60-115); Potassium 4.6 mmol/L (3.3-5.1); Sodium 139 mmol/L (135-145)
[2024-06-12 11:53] LABS: B Type Natriuretic Peptide 253 pg/mL (<100)
== END 2024-06-12 09:53 | disposition home or self-care (01) ==
LOC: HO.WFDLDS 09:52
PROVIDERS: Visit Provider Nurse Practitioner Family
DX: R06.00 Dyspnea, unspecified (principal); I10 Essential (primary) hypertension; E78.5 Hyperlipidemia, unspecified; I25.10 Atherosclerotic heart disease of native coronary artery without angina pectoris; I51.9 Heart disease, unspecified; Z95.5 Presence of coronary angioplasty implant and graft; Z87.891 Personal history of nicotine dependence; Z79.899 Other long term (current) drug therapy; Z79.82 Long term (current) use of aspirin
CPT/HCPCS: 36415; 80048; 83880; 93005; 99212

== ENCOUNTER 2024-06-22 11:14 | Outpatient (AMB) | payer MEDICARE, SELFPAY ==
--- NOTE | 2024-06-22 11:16 | MHC.OFFVIS ---
Vital Signs 06/22/24 11:17 Height 5 ft 3 in Weight 127 lb BMI 22.5 BP 130/60 Pulse 60 Pulse Source Pulse Oximeter Pulse Oximetry (%) 99 Oxygen Delivery Method Room Air Intake Visit Reasons: F/U- Shortness of breath Cloth Measurer Machine Required: No General Technician: General Technician offered & declined Accompanied by: Self / Same As Patient Allergies No Known Allergies Allergy (Mild, Verified 06/22/24 11:24) NONE Medication List - Last Reconciled 06/22/24 by Seema Dasilva LPN alprazolam 0.5 mg PO Q6H PRN amlodipine 5 mg PO DAILY aspirin (Adult Low Dose Aspirin) 81 mg PO DAILY atorvastatin 80 mg PO DAILY ezetimibe 10 mg PO DAILY 90 days hydrochlorothiazide 12.5 mg PO DAILY lactulose 20 grams (30 mL) PO BID linaclotide (Linzess) 145 mcg PO DAILY 90 days meloxicam 15 mg PO DAILY metoprolol succinate ER 50 mg (1/2 x 100 mg) PO DAILY 90 days omeprazole 20 mg PO DAILY peg 3350-electrolytes 236-22.74-6.74 -5.86 gram (Golytely) 240 mL PO Q10M timolol maleate 0.5% 1 drp ophthalmic (eye) DAILY HPI HPI F/U- Shortness of breath: Details: Fabio is pleasant 83 year old, former smoker, quit 30+ years ago with 20 pyh with underlying CAD s/p coronary stenting x 2, HTN and HLD. She continues to report progressively worsening dyspnea over the last few years with associated dry cough. Denies wheezing or chest tightness. Today she presents to review PFT results. She denies any visits to urgent care or hospitalizations related to respiratory distress since the last visit. Of note, she is scheduled for upcoming cardiac catherization to assess cardiac component contributing to dyspnea. Cardiology recently restarted HCTZ as patient has been without and sent for BNP to assess for possible HF contributing to symptoms which was elevated at 253. PFSH Medical History Allergic rhinitis HTN (hypertension) CAD (coronary artery disease) Bilateral carotid artery disease Hyperlipidemia Surgical History Stented coronary artery Hx of cardiac cath Hx of endoscopy Hx of colonoscopy Hx of eye surgery Hx of foot surgery Family History Mother CVD (cardiovascular disease) Social History Housing: House Alcohol intake: current Alcohol intake frequency: a few times a week Patient Tobacco Use Status: Former Tobacco user Years Smoked: 40 +/- e-Cigarette/Vaping Use: Never Used Second Hand Smoke Exposure: No service: No Current occupational status: retired Cognitive needs: No Hearing needs: No Vision needs: No Review of Systems Const Denies chills, Denies excessive sweating, Denies fever(s), Denies headache(s) and Denies night sweats Eyes Denies dry eyes, Denies irritation and Denies itchy eyes ENT Reports Normal hearing present, Denies headache(s), Denies nasal congestion, Denies nasal discharge, Denies post nasal drip and Denies sore throat Card Denies chest pain, Denies chest pain at rest, Denies chest pain with activity, Denies claudication, Denies leg edema, Denies orthopnea and Denies paroxysmal nocturnal dyspnea Resp Denies chest congestion, Denies excessive phlegm production, Denies pain on inspiration, Denies pain with cough, Denies stridor and Denies wheezing Musc Denies myalgias Neuro Reports Normal hearing present and Denies headache(s) Endo Denies excessive sweating Gil/Lymph Denies lymphadenopathy Aller/Immun Denies itchy eyes, Denies seasonal rhinorrhea and Denies wheezing Physical Exam Vital Signs: Last Vital Signs Pulse 60 06/22/24 11:17 BP 130/60 06/22/24 11:17 Pulse Ox 99 06/22/24 11:17 Oxygen Delivery Method Room Air 06/22/24 11:17 BMI result Body Mass Index 22.5 Const General: cooperative, comfortable, no acute distress and alert Orientation/consciousness: patient oriented x3 Limitations: ambulation with cane (walking stick) HEENT Head: Yes normal to inspection, Yes normocephalic and Yes atraumatic Ears: hearing grossly normal bilaterally and external ears normal Eyes General: appearance normal, both eyes and all related structures Eyelids: Yes eyelids normal Sclerae: sclerae normal EOM: EOMs intact bilaterally Neck Neck: Yes normal visual inspection and Yes no lymphadenopathy Lymphatic: no lymphadenopathy noted Chest Chest palpation & inspection: normal inspection of the chest Resp Effort & Inspection: normal respiratory effort, able to speak in complete sentences, no audible wheezes, no cough, no stridor, not tachypneic, no tripod positioning and no use of accessory muscles Auscultation: clear to auscultation bilaterally Cardio Jugular venous distension: no JVD Rate: regular rate Rhythm: regular rhythm Skin Other: warm, dry General skin exam: no rashes or lesions noted Neuro General: patient oriented x3 Cranial nerves: Yes Normal hearing present Cognition (Neuro): normal cognition Psych Appearance: grossly normal and well kempt Speech and movement: Normal speech and movement present and Clear speech present Affect: normal affect Attitude: cooperative Thought process: Normal thought process present Thought content: Normal thought content present Insight: Good insight present (Psych) Judgement: Good judgement present (Psych) Assessment & Plan Assessment & Plan (1) Dyspnea: Code(s): R06.00 - Dyspnea, unspecified Category: Medical (2) Personal history of tobacco use: Code(s): Z87.891 - Personal history of nicotine dependence Category: Social Hx Plan Reviewed PFT which revealed no obstructive or restrictive ventilatory defect. No bronchodilator response. Isolated defect in diffusion capacity suggests underlying pulmonary edema. Patient is under the care of cardiology who did review this and sent patient for BNP which was elevated at 253, currently on HCTZ. Cardiology noted if elevated would switch to low dose lasix. Discussed with cardiology, sent for BNP and BMP today to further evaluate effectiveness of HCTZ. She has upcoming cardiac cath, will follow up after performed. CXR unremarkable, discussed chest CT however patient declined at this time. All questions were answered and patient is in agreement of plan. Will follow up in 6 weeks or sooner if needed. Orders: Orders B Type Natriuretic Peptide Today R06.00 - Dyspnea, unspecified Basic Metabolic Panel Today R06.00 - Dyspnea, unspecified Coding Level of Care Code Est Pt Level 4 (91758) Diagnoses Dyspnea R06.00 Personal history of tobacco use Z87.892
[2024-06-22 11:17] VITALS: BP 130/60; PULSE 60; O2SAT 99; BMI 22.5
== END 2024-06-22 11:49 | disposition home or self-care (01) ==
LOC: HO.HPSW 11:14
PROVIDERS: PCP Internal Medicine; Visit Provider Nurse Practitioner Family
DX: R06.00 Dyspnea, unspecified (principal); Z87.891 Personal history of nicotine dependence
CPT/HCPCS: 99214

== ENCOUNTER 2024-06-22 12:03 | Outpatient (REF) | payer MEDICARE, SELFPAY ==
[2024-06-22 14:43] LABS: Anion Gap 12 (12-20); Blood Urea Nitrogen 23 mg/dL (9-16); Calcium 9.3 mg/dL (8.4-10.2); Carbon Dioxide 26 mmol/L (22-29); Chloride 103 mmol/L (96-108); Estimated Glomerular Filt Rate 56; Glucose Random 100 mg/dL (60-115); Potassium 4.5 mmol/L (3.3-5.1); Sodium 136 mmol/L (135-145)
[2024-06-22 15:52] LABS: B Type Natriuretic Peptide 139 pg/mL (<100)
== END 2024-06-22 12:04 | disposition home or self-care (01) ==
LOC: HO.WFDLDS 12:03
PROVIDERS: Visit Provider Nurse Practitioner Family
DX: R06.00 Dyspnea, unspecified (principal); Z87.891 Personal history of nicotine dependence
CPT/HCPCS: 36415; 80048; 83880; 99212

== ENCOUNTER 2024-07-05 11:58 | Outpatient (REF) | payer MEDICARE, SELFPAY ==
[2024-07-05 14:39] LABS: MANUAL DIFF FLAG NO
--- OUTSIDE RECORDS SUMMARY | 2024-07-05 14:40 | XMS_ITS ---
Author Organization [facility] Address [address] [place] [address] Care Team Providers Care Assistant Infant Toddler Teacher Name Role Phone Ann SARAH, Oleg Primary Care Provider Renataa Derek Pineda Unavailable [phone] REASON FOR VISIT UNSPECIFIED ABDOMINAL PAIN Encounters Encounter Location Date Provider Diagnosis [facility] [address] [facility] [address] [place] [phone] 09/07/2023 Derek Lee Plan Of Treatment No Information Progress Notes * SERA KRAMER GDOB:[birth year] (83 yo F)Acc No.[id number]:09/07/2023 Progress Notes Patient:?SERA KRAMER Provider:?Derek Lee MD :1940???Age:82 Y???Sex:Female D ate:09/07/2023 Address:[address] [place], [place] [id number] Pcp:Oleg Juarez MD Subjective: * Chief Complaints: [...] MD Date:? 024 Generated for Chinedui ng/Fapatg/eTransmitting on:?07/05/2024 02:40 PM EDT
--- OUTSIDE RECORDS SUMMARY | 2024-07-05 14:40 | XMS_ITS ---
Author Organization [facility] Address [address] [facility] [address] [place] [address] Care Team Providers Care Commercial Producer Name Role Phone Oleg Juarez MD Primary Care Provider Renataa Derek Pineda Unavailable [phone] REASON FOR VISIT cancel appt on 01/06/2024 Encounters Encounter Location Date Provider Diagnosis [facility] [address] [facility] [address] [place] [phone] 12/14/2023 Derek Lee Plan Of Treatment No Information Progress Notes * SERA KRAMER GDOB:[birth year] (83 yo F)Acc No.[id number]:12/14/2023 Patient:?ESTEFANIA KRAMERINA Sandhya :1940???Age:83 Y???Sex:Female Address:[address] [place] [address], [address] * true * Date:? Generated for Milvia sweeney/Erik/eTransmitting on:?07/05/2024 02:40 PM EDT
--- OUTSIDE RECORDS SUMMARY | 2024-07-05 14:40 | XMS_ITS | Patient Health Record ---
Author Organization [facility] Address [address] [place] [phone] Care Team Providers Care Hand Etcher Name Role Phone Oleg Juarez MD Primary Care Provider Yan hernandez LeeDerek Unavailable [phone] Allergies No Known Allergies Reason For Referral [...] Problem Status W/U Status Risk Notes Problem 12254157 Diarrhea (R19.7) Active confirmed Problem 935693097 Irritable bowel syndrome with diarrhea (K58.0) Active confirmed Problem Irritable bowel syndrome characterized by constipation (044105336) Irritable bowel syndrome with constipation (K58.9) Active confirmed Problem 81114268 Change in bowel function (R19.4) Active confirmed Problem Abdominal pain (18650480) Abdominal cramps (R10.9) Active confirmed Problem 300098874 Abdominal pain, acute, periumbilical (R10.33) Active confirmed Vital Signs Blood pressure diastolic 00 mm Hg 07/07/2023 Height 60.5 in 07/07/2023 Blood pressure systolic 0 mm Hg 07/07/2023 Weight 134 lbs 07/07/2023 BMI 25.74 kg/m2 07/07/2023 Encounters Encounter Location Date Provider Diagnosis [facility] [address] [place] [address] 07/07/2023 Derek Lee Irritable bowel syndrome with constipation K58.9 and Abdominal cramps R10.[address] [facility] [address] [place] [address] 12/14/2023 Derek Lee Assessments Encounter Date Diagnosis [...] [employer] Medicare Adv (PPO) [address] [address] [place] [address] [id number] NIA ESTEFANIAINA Self - patient is the insured Medical (General) History Medical History History ICD Code Denies [place],DM,CVA,Lung disease,renal dise ase Neuropathy in feet Glaucoma [...]
--- OUTSIDE RECORDS SUMMARY | 2024-07-05 14:41 | XMS_ITS ---
Author Organization [facility] Address [address] [place] [phone] Care Team Providers Care Sewer Pipe Press Operator Name Role Phone Ann SARAH, Oleg Primary Care Provider Renataa Derek Pineda Unavailable [phone] REASON FOR VISIT abdominal pain Encounters Encounter Location Date Provider Diagnosis [facility] [address] [facility] [address] [place] [phone] 01/06/2024 Derek Lee Plan Of Treatment No Information Progress Notes * SERA KRAMER GDOB:[birth year] (83 yo F)Acc No.[id number]:01/06/2024 Progress Notes Patient:?SERA KRAMER Provider:?Derek Lee MD :1940???Age:83 Y???Sex:Female D ate:01/06/2024 Address:[address] [place], [place] [id number] Pcp:Oleg Juarez MD Subjective: * Chief Complaints: [...] MD Date:? 024 Generated for Milvia sweeney/Caroleg/eTransmitting on:?07/05/2024 02:40 PM EDT
[2024-07-05 14:53] LABS: Basophils Absolute Auto 0.1 X10*3/uL (0.0-0.2); Basophils Percent Auto 0.8 % (0-2); Eosinophils Absolute Auto 0.2 X10*3/uL (0.0-0.4); Eosinophils Percent Auto 3.7 % (0-4); Hematocrit 29.8 % (37.0-47.0); Hemoglobin 9.7 g/dl (12.0-16.0); Imm Gran Abs Auto 0.01 X10*3/uL (0.00-0.03); Imm Gran Pct Auto 0.2 % (0.0-0.4); Lymphocytes Absolute Auto 1.4 X10*3/uL (1.2-4.9); Mean Corpuscular HGB Conc 32.6 g/dl (31.0-35.0); Mean Corpuscular Hemoglobin 25.1 pg (27.0-33.0); Mean Platelet Volume 10.3 fL (9.4-12.3); Monocytes Absolute Auto 0.4 X10*3/uL (0.1-1.2); Monocytes Percent Auto 6.8 % (2-11); Neutrophils Absolute Auto 4.4 x10*3/uL (2.0-8.3); Neutrophils Percent Auto 67.5 % (45-73); Platelet Count 281 X10*3/uL (160-400); Red Blood Count 3.87 X10*6/uL (4.20-5.50); Red Cell Distribution Width 16.6 % (11.0-16.0); White Blood Count 6.5 X10*3/uL (4.8-10.8)
[2024-07-05 14:56] LABS: Prothrombin Time 12.2 SEC (10.9-12.4)
[2024-07-05 15:09] LABS: Alanine Aminotransferase 14 U/L (0-31); Albumin Level 3.9 g/dL (3.5-5.0); Anion Gap 13 (12-20); Aspartate Amino Transferase 26 U/L (5-31); Bilirubin Total 0.4 mg/dL (0.0-1.0); Blood Urea Nitrogen 24 mg/dL (9-16); Carbon Dioxide 26 mmol/L (22-29); Chloride 103 mmol/L (96-108); Estimated Glomerular Filt Rate > 60; Glucose Random 96 mg/dL (60-115); Iron 24 mcg/dL (30-160); Percent Iron Saturation 7 % (15-50); Potassium 4.5 mmol/L (3.3-5.1); Sodium 137 mmol/L (135-145); Total Iron Binding Capacity 350 mcg/dL (228-428); Unsaturated Iron Binding 326 ug/dL
[2024-07-05 15:12] LABS: Alkaline Phosphatase 93 U/L (39-117)
[2024-07-05 15:18] LABS: B Type Natriuretic Peptide 177 pg/mL (<100)
[2024-07-05 15:35] LABS: Folate 9.3 ng/mL (> or = 4.0); Vitamin B12 350 pg/mL (200-900)
== END 2024-07-05 11:59 | disposition home or self-care (01) ==
LOC: HO.WFDLDS 11:58
PROVIDERS: Referring Provider Nurse Practitioner Family; Visit Provider Internal Medicine
DX: R06.00 Dyspnea, unspecified (principal); I25.10 Atherosclerotic heart disease of native coronary artery without angina pectoris; K59.00 Constipation, unspecified; R06.02 Shortness of breath; D64.9 Anemia, unspecified
CPT/HCPCS: 36415; 80053; 82607; 82746; 83540; 83880; 85025; 85610

== ENCOUNTER → 2024-07-12 23:59 | Outpatient (BNV) | payer MEDICARE, SELFPAY | PROVIDERS: PCP Internal Medicine; Visit Provider Internal Medicine Cardiovascular Disease | DX: I20.89 Other forms of angina pectoris (principal) | CPT/HCPCS: 93460; 93566; 99152 ==

== ENCOUNTER 2024-08-06 09:57 | Outpatient (AMB) | payer MEDICARE, SELFPAY ==
--- NOTE | 2024-08-06 09:59 | MHC.PC.OV ---
Vital Signs 08/06/24 10:10 Height 5 ft 3 in Weight 122 lb 6 oz BMI 21.7 BP 118/62 Blood Pressure Location Rt brachial Position Sitting Pulse 95 Pulse Source Pulse Oximeter Temp 97.9 F Temp Source Temporal Artery Scan Pulse Oximetry (%) 97 Oxygen Delivery Method Room Air Intake Visit Reasons: S/P Heart Cath Intake Note: Fabio presents in the office today for s/p heart cath. Allergies No Known Allergies Allergy (Mild, Verified 08/06/24 10:02) NONE Tobacco use date assessed: 08/06/24 Dental Screening Dental Screen Date: 08/06/24 Did you have a dental visit in the last 12 months?: Yes Did you have a dental problem in the last 6 months where you did not have access to dental care?: No Was dental information given to patient?: Patient has dentist HPI HPI Comments History of Present Illness Details This is an 83-year-old female with a significant past medical history of hypertension, hyperlipidemia, GERD and anxiety presenting for follow up since cardiac catheterization and to review labs. Patient had a cardiac catheterization procedure 07/12/[address] Camacho. Diagnostic recommendations including continue baby aspirin 81 mg a day indefinitely, aggressive secondary risk factor modification and reassessment in a few weeks if she continued to have dyspnea despite antianginals. She was started on isosorbide mononitrate, but it was discontinued due to dizziness. The catheterization demonstrated calcified stenosis in the right coronary artery and stenosis in the LAD. Patient said she develops severe pain and spasming in her right arm during the procedure so they elected to treat her medically rather than with stents. It is noted that if she continued to have dyspnea on exertion a femoral approach should be considered. She has a history of PCI to the circumflex and RCA in 2017. Patient requests referral to [facility] for further management. Her current medication regimen includes metoprolol succinate ER 50 mg daily, hydrochlorothiazide 25 mg daily, Zetia 10 mg daily, atorvastatin 80 mg daily, amlodipine 5 mg daily. The patient was working in her yd a week ago and scratched the back of her left hand on some plants. One of the cuts is healed, but the other is still open. They are tender. No swelling, discharge, fevers or chills. She is not diabetic. The patient had blood work completed on 07/05/2024 which showed worsening of mild anemia from September 2023. She has microcytosis. White blood cell count, platelet count and differential are normal. Renal function was also normal. Iron is decreased at 24, and her B12 level is low normal at 350. Folate was normal. She denies blood in her stools. She has chronic gastrointestinal issues. She has been scheduled for endoscopy but it was on hold due to shortness of breath and concerns about anesthesia. She has a history of chronic constipation and overflow diarrhea for which she saw Dr. Lee. She is on Linzess. She declines tetanus immunization. ROS: Constitutional: No fevers or chills or night sweats. +fatigue. Respiratory: No shortness of breath, hemoptysis or cough. +dyspnea on exertion. Cardiovascular: No chest pain, chest pressure or chest discomfort. No palpitations or pedal edema. Gastrointestinal: No vomiting or blood in stools. See HPI Skin: See HPI Physical exam: Constitutional: Alert, in no distress. Respiratory: Clear to auscultation. Cardiovascular: S1 S2 regular. No murmurs. Neurologic: No focal neurological deficits. Skin: There is a scab on the back of the left hand. I removeda bandage which covered what looked like a healing avulsed skin wound that did have 2 small open areas with a small amount of bleeding when the bandage was removed. No edema, discharge. Extremities: Warm and well perfused. No clubbing, cyanosis or edema. Psychiatric: Normal mood and affect [facility] Medical History Allergic rhinitis HTN (hypertension) CAD (coronary artery disease) Bilateral carotid artery disease Hyperlipidemia Surgical History Stented coronary artery Hx of cardiac cath Hx of endoscopy Hx of colonoscopy Hx of eye surgery Hx of foot surgery Family History Mother CVD (cardiovascular disease) Social History (Updated 08/06/24 @ 10:10 by Sowmya Brennan MA) Housing: House Alcohol intake: current Alcohol intake frequency: a few times a week Patient Tobacco Use Status: Former Tobacco user Years Smoked: 40 +/- e-Cigarette/Vaping Use: Never Used Second Hand Smoke Exposure: No service: No Current occupational status: retired Cognitive needs: No Hearing needs: No Vision needs: No Questionnaire PHQ-9 Over the last 2 weeks, how often have you been bothered by any of the following problems? 1. Little interest or pleasure in doing things: not at all 2. Feeling down, depressed, or hopeless: not at all 3. Trouble falling or staying asleep, or sleeping too much: not at all 4. Feeling tired or having little energy: not at all 5. Poor appetite or overeating: not at all 6. Feeling bad about yourself - or that you are a failure or have let yourself or your family down: not at all 7. Trouble concentrating on things, such as reading the newspaper or watching television: not at all 8. Moving or speaking so slowly that other people could have noticed. Or the opposite - being so fidgety or restless that you have been moving around a lot more than usual: not at all 9. Thoughts that you would be better off or of hurting yourself in some way: not at all Total score: 0 Depression Screening Interpretation: Negative Depression Screening Done: Yes 50269 - PHQ-9 Billing: Patient declined-do not bill Source: Developed by Drs. Jun Bo, Kim Coello, Zach Corral and colleagues, with an educational jameel from [employer]. Thrive Questionnaire Date Thrive assessed: 10/14/23 LAURIE-7 AMB Questionnaire LAURIE-7 Date LAURIE - 7 assessed: 08/06/24 Feeling nervous, anxious, or on edge: 0 = Not at all Not being able to stop or control worryin = Not at all Worrying too much about different things: 0 = Not at all Trouble relaxin = Not at all Being so restless that it is hard to sit still: 0 = Not at all Becoming easily annoyed or irritable: 0 = Not at all Feeling afraid as if something awful might happen: 0 = Not at all Total LAURIE-7 score (0-4 normal; 5-9 mild; 10-14 moderate; 15-21 severe): 0 Source: Developed by Drs. Jun Bo, Kim Coello, Zach Corral and colleagues, with an educational jameel from [employer]. LAURIE-7 Assessment Billing LAURIE-7 Assessment Tool: LAURIE-7 Assessment 87162 Physical exam (Primary Care) Vital Signs: Last Vital Signs Temp 97.9 F 08/06/24 10:10 Pulse 95 08/06/24 10:10 BP 118/62 08/06/24 10:10 Pulse Ox 97 08/06/24 10:10 Oxygen Delivery Method Room Air 08/06/24 10:10 BMI result Body Mass Index 21.7 Tobacco/Smoking Status: Tobacco use Status Tobacco use date assessed 08/06/24 08/06/24 10:15 Patient Tobacco Use Status Former Tobacco user 08/06/24 10:10 e-Cigarette/Vaping Use Never Used 08/06/24 10:10 PHQ-9: PHQ-9 Score PHQ-9: Total score 0 08/06/24 10:15 Depression Screening Interpretation: Negative Thrive Assessment: Date of Thrive Assessment Date Thrive assessed 10/14/23 08/06/24 10:01 Coding Level of Care Code Est Pt Level 5 (21095) Complex EM visit Add On G2211 Diagnoses Dyspnea R06.00 CAD (coronary artery disease) I25.10 Anemia, unspecified type D64.9 Anemia type: unspecified type Wound of skin T14.8XXA Additional Codes LAURIE-7 Assessment Billing - LAURIE-7 Assessment Tool: LAURIE-7 Assessment 79216 ([id number]) Time Spent (min) 50 Comment Wound dressing, direct patient care, chart review, completing documentation Assessment & Plan Assessment & Plan (1) Dyspnea: Code(s): R06.00 - Dyspnea, unspecified Category: Medical (2) CAD (coronary artery disease): Code(s): I25.10 - Atherosclerotic heart disease of [place] coronary artery without angina pectoris Category: Medical (3) Anemia: Code(s): D64.9 - Anemia, unspecified Category: Medical Qualifiers: Anemia type: unspecified type Qualified Code(s): D64.9 - Anemia, unspecified (4) Wound of skin: Code(s): T14.8XXA - Other injury of unspecified body region, initial encounter Plan Patient did not tolerate isosorbide mononitrate. She would like to have further management done by [facility]. Urgent referral placed. She continues with dyspnea on exertion but is stable. She will continue her current medications. Warning signs warranting ER evaluation reviewed with the patient. We discussed possible etiologies for anemia. Start B12 and iron supplements. Side effects reviewed. Recommended taking iron with vitamin-C to improve absorption. Recheck labs in 1 month. Warning signs warranting ER evaluation reviewed. 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 Her skin wound was dressed today with bacitracin, Xeroform and rolled gauze. Recommended changing dressing every day or every other day. Offered referral for nursing home to do this, but patient declined and said she will do the dressing changes. She also declined follow up appointment in a few days to recheck this. She said she will call if it is not healing or she develops redness, swelling or increased pain. She declined tetanus immunization against medical advice. Orders: Orders Vitamin B12 and Folate 4 Weeks D64.9 - Anemia, unspecified IRON PROFILE 4 Weeks D64.9 - Anemia, unspecified Ferritin 4 Weeks D64.9 - Anemia, unspecified Complete Blood Count Auto Diff 4 Weeks D64.9 - Anemia, unspecified Referrals Cardiology Referral I25.10 - Atherosclerotic heart disease of [place] coronary artery without angina pectoris, R06.00 - Dyspnea, unspecified Medications: New ferrous sulfate 325 mg PO Q OTHER DAY 45 tabs 0RF cyanocobalamin (vitamin B-12) 500 mcg PO DAILY 90 tabs 0RF Patient Instructions: Please start vitamin b12 and iron supplements. Please change dressing every other day and call if you have increased redness, swelling or discharge from your hand wound.
[2024-08-06 10:10] VITALS: BP 118/62; PULSE 95; TEMP 36.6; O2SAT 97; BMI 21.7
--- OUTSIDE RECORDS SUMMARY | 2024-08-06 10:19 | XMS_ITS ---
Author Organization [facility] Address [address] [facility] [address] [place] [phone] Care Team Providers Care Regional Loss Prevention Manager Name Role Phone Oleg Juarez MD Primary Care Provider Renataa Derek Pineda Unavailable [phone] REASON FOR VISIT cancel appt on 01/06/2024 Encounters Encounter Location Date Provider Diagnosis [facility] [address] [facility] [address] [place] [phone] 12/14/2023 Derek Lee Plan Of Treatment No Information Progress Notes * SERA KRAMER GDOB:[birth year] (83 yo F)Acc No.[id number]:12/14/2023 Patient:?ESTEFANIA KRAMERINA Sandhya :1940???Age:83 Y???Sex:Female Address:[address] [place] [address], [address] * true * Date:? Generated for Milvia sweeney/Erik/eTransmitting on:?08/06/2024 10:19 AM EDT
--- OUTSIDE RECORDS SUMMARY | 2024-08-06 10:19 | XMS_ITS ---
Author Organization [facility] Address [address] [place] [phone] Care Team Providers Care Quality Assurance Lead Name Role Phone Ann SARAH, Oleg Primary Care Provider Renataa Derek Pineda Unavailable [phone] REASON FOR VISIT UNSPECIFIED ABDOMINAL PAIN Encounters Encounter Location Date Provider Diagnosis [facility] [address] [facility] [address] [place] [phone] 09/07/2023 Derek Lee Plan Of Treatment No Information Progress Notes * SERA KRAMER GDOB:[birth year] (83 yo F)Acc No.[id number]:09/07/2023 Progress Notes Patient:?SERA KRAMER Provider:?Derek Lee MD :1940???Age:82 Y???Sex:Female D ate:09/07/2023 Address:[address] [place], [place] [phone] Pcp:Oleg Juarez MD Subjective: * Chief Complaints: [...] MD Date:? 024 Generated for Chinedui ng/Fapatg/eTransmitting on:?08/06/2024 10:19 AM EDT
--- OUTSIDE RECORDS SUMMARY | 2024-08-06 10:19 | XMS_ITS | Patient Health Record ---
Author Organization [facility] Address [address] [place] [phone] Care Team Providers Care Manager Inside Name Role Phone Oleg Juarez MD Primary Care Provider Yan hernandez LeeDerek Unavailable [phone] Allergies No Known Allergies Reason For Referral [...] Problem Status W/U Status Risk Notes Problem 40294984 Diarrhea (R19.7) Active confirmed Problem 449853547 Irritable bowel syndrome with diarrhea (K58.0) Active confirmed Problem Irritable bowel syndrome characterized by constipation (677726189) Irritable bowel syndrome with constipation (K58.9) Active confirmed Problem 69324875 Change in bowel function (R19.4) Active confirmed Problem Abdominal pain (52332907) Abdominal cramps (R10.9) Active confirmed Problem 389069542 Abdominal pain, acute, periumbilical (R10.33) Active confirmed Encounters Encounter Location Date Provider Diagnosis [facility] [address] [place] [address] 12/14/2023 Derek Lee Plan Of Treatment Future Test Test Name Order Date COLONOSCOPY 07/31/2015 Insurance Providers Payer Name Payer Address Payer Phone Subscriber Number Group Number Insured Name Patient Relationship to Insured Coverage Start Date Coverage End Date [employer] Medicare Adv (PPO) [address] [address] [place] [address] [id number] SERA KRAMER Self - patient is the insured Medical (General) History Medical History History ICD Code Denies [place],DM,CVA,Lung disease,renal dise ase Neuropathy in feet Glaucoma [...]
--- OUTSIDE RECORDS SUMMARY | 2024-08-06 10:20 | XMS_ITS ---
Author Organization [facility] Address [address] [place] [phone] Care Team Providers Care Coil Machine Supervisor Name Role Phone Ann SARAH, Oleg Primary Care Provider Renataa Derek Pineda Unavailable [phone] REASON FOR VISIT abdominal pain Encounters Encounter Location Date Provider Diagnosis [facility] [address] [facility] [address] [place] [phone] 01/06/2024 Derek Lee Plan Of Treatment No Information Progress Notes * SERA KRAMER GDOB:[birth year] (83 yo F)Acc No.[id number]:01/06/2024 Progress Notes Patient:?SERA KRAMER Provider:?Derek Lee MD :1940???Age:83 Y???Sex:Female D ate:01/06/2024 Address:[address] [place], [place] [phone] Pcp:Oleg Juarez MD Subjective: * Chief Complaints: [...] MD Date:? 024 Generated for Milvia sweeney/Caroleg/eTransmitting on:?08/06/2024 10:19 AM EDT
== END 2024-08-06 11:00 | disposition home or self-care (01) ==
LOC: HO.HMCFM 09:57
PROVIDERS: PCP Internal Medicine; Visit Provider Physician Assistant Medical
DX: R06.00 Dyspnea, unspecified (principal); I25.10 Atherosclerotic heart disease of native coronary artery without angina pectoris; D64.9 Anemia, unspecified; T14.8XXA Other injury of unspecified body region, initial encounter

== ENCOUNTER → 2024-08-06 09:57 | Outpatient (BNVA) | payer MEDICARE, SELFPAY | PROVIDERS: PCP Internal Medicine; Visit Provider Physician Assistant Medical | DX: R06.00 Dyspnea, unspecified (principal); I25.10 Atherosclerotic heart disease of native coronary artery without angina pectoris; D64.9 Anemia, unspecified; I10 Essential (primary) hypertension; E78.5 Hyperlipidemia, unspecified; T14.8XXA Other injury of unspecified body region, initial encounter; X58.XXXA Exposure to other specified factors, initial encounter; Y93.9 Activity, unspecified; Y92.9 Unspecified place or not applicable; Y99.9 Unspecified external cause status; Z79.899 Other long term (current) drug therapy | CPT/HCPCS: 96127; 99212 ==

== ENCOUNTER 2024-08-14 13:55 | Outpatient (AMB) | payer MEDICARE, SELFPAY ==
[2024-08-14 13:57] VITALS: BP 110/62; PULSE 65; O2SAT 97; BMI 22.4
--- NOTE | 2024-08-14 13:57 | A.OFFVIS_ITS ---
Vital Signs 08/14/24 13:57 Height 5 ft 3 in Weight 126 lb 6 oz BMI 22.4 BP 110/62 Blood Pressure Location Rt brachial Position Sitting Pulse 65 Pulse Source Pulse Oximeter Pulse Oximetry (%) 97 Oxygen Delivery Method Room Air Intake Visit Reasons: F/U- Shortness of breath Allergies No Known Allergies Allergy (Mild, Verified 08/14/24 14:03) NONE HPI HPI F/U- Shortness of breath: Details: Fabio is pleasant 83 year old, former smoker, quit 30+ years ago with 20 pyh with underlying CAD s/p coronary stenting x 2, HTN and HLD. She continues to report progressively worsening dyspnea over the last few years with associated dry cough. Denies wheezing or chest tightness. Reviewed PFT at the last visit which revealed unremarkable findings other than isolated decrease in DLCO suggests the pulmonary edema. She is under the care of a [facility] cardiology and recently underwent right heart catheterization via right arm unfortunately with difficult access and her know will be scheduled for tomorrow all right heart catheterization in the near future. [facility] Medical History Allergic rhinitis HTN (hypertension) CAD (coronary artery disease) Bilateral carotid artery disease Hyperlipidemia Surgical History Stented coronary artery Hx of cardiac cath Hx of endoscopy Hx of colonoscopy Hx of eye surgery Hx of foot surgery Family History Mother CVD (cardiovascular disease) Social History Housing: House Alcohol intake: current Alcohol intake frequency: a few times a week Patient Tobacco Use Status: Former Tobacco user Years Smoked: 40 +/- e-Cigarette/Vaping Use: Never Used Second Hand Smoke Exposure: No service: No Current occupational status: retired Cognitive needs: No Hearing needs: No Vision needs: No Review of Systems Const Denies chills, Denies excessive sweating, Denies fever(s), Denies headache(s) and Denies night sweats Eyes Denies dry eyes, Denies irritation and Denies itchy eyes ENT Reports Normal hearing present, Denies headache(s), Denies nasal congestion, Denies nasal discharge, Denies post nasal drip and Denies sore throat Card Denies chest pain, Denies chest pain at rest, Denies chest pain with activity, Denies claudication, Denies leg edema, Denies orthopnea and Denies paroxysmal nocturnal dyspnea Resp Denies chest congestion, Denies excessive phlegm production, Denies pain on inspiration, Denies pain with cough, Denies stridor and Denies wheezing Musc Denies myalgias Neuro Reports Normal hearing present and Denies headache(s) Endo Denies excessive sweating Gil/Lymph Denies lymphadenopathy Aller/Immun Denies itchy eyes, Denies seasonal rhinorrhea and Denies wheezing Physical Exam Vital Signs: Last Vital Signs Pulse 65 08/14/24 13:57 BP 110/62 08/14/24 13:57 Pulse Ox 97 08/14/24 13:57 Oxygen Delivery Method Room Air 08/14/24 13:57 BMI result Body Mass Index 22.4 Const General: cooperative, comfortable, no acute distress and alert Orientation/consciousness: patient oriented x3 Limitations: ambulation with cane (walking stick) HEENT Head: Yes normal to inspection, Yes normocephalic and Yes atraumatic Ears: hearing grossly normal bilaterally and external ears normal Eyes General: appearance normal, both eyes and all related structures Eyelids: Yes eyelids normal Sclerae: sclerae normal EOM: EOMs intact bilaterally Neck Neck: Yes normal visual inspection and Yes no lymphadenopathy Lymphatic: no lymphadenopathy noted Chest Chest palpation & inspection: normal inspection of the chest Resp Effort & Inspection: normal respiratory effort, able to speak in complete sentences, no audible wheezes, no cough, no stridor, not tachypneic, no tripod positioning and no use of accessory muscles Auscultation: clear to auscultation bilaterally Cardio Jugular venous distension: no JVD Rate: regular rate Rhythm: regular rhythm Skin Other: warm, dry General skin exam: no rashes or lesions noted Neuro General: patient oriented x3 Cranial nerves: Yes Normal hearing present Cognition (Neuro): normal cognition Psych Appearance: grossly normal and well kempt Speech and movement: Normal speech and movement present and Clear speech present Affect: normal affect Attitude: cooperative Thought process: Normal thought process present Thought content: Normal thought content present Insight: Good insight present (Psych) Judgement: Good judgement present (Psych) Office Procedures 6 Minute Walk Time:: 14:32 SPO2 % at rest: 99 Pulse at rest: 63 SPO2 % during excercise: 98 Pulse during excercise: 88 SPO2 % after excercise: 99 Pulse after excercise: 80 Distance in yards walked: 80 Monica Score: 3 Performance Observations:: Patient walked on level ground using a cane in her left hand at a slow pace. Patient was able to walk for the 6minutes maintaining O2 saturation of 98% or greater and pulse of 80-88. Denies respiratory distress. Patient reports walking on an incline of up the steps causes significant shortness of breath. Patient did not require the use of supplemental oxygen. [address] - 6 Minute Walk Assessment & Plan Assessment & Plan (1) Dyspnea: Code(s): R06.00 - Dyspnea, unspecified Category: Medical (2) Personal history of tobacco use: Code(s): Z87.891 - Personal history of nicotine dependence Category: Social Hx (3) Decreased diffusion capacity: Code(s): R94.2 - Abnormal results of pulmonary function studies Category: Medical (4) Anemia: Code(s): D64.9 - Anemia, unspecified Category: Medical Qualifiers: Anemia type: unspecified type Qualified Code(s): D64.9 - Anemia, unspecified Plan Reviewed PFT which revealed no obstructive or restrictive ventilatory defect. No bronchodilator response. Isolated defect in diffusion capacity suggests underlying pulmonary edema. Will hold off on albuterol since no response with bronchodilator. Patient is under the care of cardiology and will be scheduled for femoral access right heart cath to assess cardiac component of dyspnea. Previously discussed chest CT to assess for any parenchymal condition contributing to symptoms and decreased DLCO, but she had declined. She is agreeable today, will enter order. 6MWT performed today and patient does not require supplemental oxygen at this time. Patient also with h/o anemia, last H/H decreased at 12/24, PCP placed order for repeat CBC, encouraged patient to obtain. All questions were answered and patient is in agreement of plan. Will follow up to review results or sooner if needed. Orders: Orders AMB 6 minute walk 08/14/24 R06.00 - Dyspnea, unspecified CT chest wo IV con Today R94.2 - Abnormal results of pulmonary function studies, Z87.891 - Personal history of nicotine dependence Coding Level of Care Code Est Pt Level 4 (81140) Diagnoses Dyspnea R06.00 Personal history of tobacco use Z87.891 Decreased diffusion capacity R94.2 Anemia, unspecified type D64.9 Anemia type: unspecified type CPT Codes Coding ([id number])
[2024-08-14 14:49] VITALS: PULSE 63; O2SAT 99
--- OUTSIDE RECORDS SUMMARY | 2024-08-14 15:17 | XMS_ITS ---
Author Organization [facility] Address [address] [place] [phone] Care Team Providers Care Retail Equipment Associate Name Role Phone Ann SARAH, Oleg Primary Care Provider Renataa Derek Pineda Unavailable [phone] REASON FOR VISIT UNSPECIFIED ABDOMINAL PAIN Encounters Encounter Location Date Provider Diagnosis [facility] [address] [facility] [address] [place] [phone] 09/07/2023 Derek Lee Plan Of Treatment No Information Progress Notes * SERA KRAMER GDOB:[birth year] (83 yo F)Acc No.[id number]:09/07/2023 Progress Notes Patient:?SERA KRAMER Provider:?Derek Lee MD :1940???Age:82 Y???Sex:Female D ate:09/07/2023 Address:[address] [place], [place] [phone] Pcp:Oleg Juarez MD Subjective: * Chief Complaints: [...] MD Date:? 024 Generated for Chinedui ng/Fapatg/eTransmitting on:?08/14/2024 03:17 PM EDT
--- OUTSIDE RECORDS SUMMARY | 2024-08-14 15:17 | XMS_ITS ---
Author Organization [facility] Address [address] [place] [address] Care Team Providers Care Laser Cutter Name Role Phone Ann SARAH, Oleg Primary Care Provider Renataa Derek Pineda Unavailable [phone] REASON FOR VISIT abdominal pain Encounters Encounter Location Date Provider Diagnosis [facility] [address] [facility] [address] [place] [address] 01/06/2024 Derek Lee Plan Of Treatment No Information Progress Notes * SERA KRAMER GDOB:[birth year] (83 yo F)Acc No.[id number]:01/06/2024 Progress Notes Patient:?SERA KRAMER Provider:?Derek Lee MD :1940???Age:83 Y???Sex:Female D ate:01/06/2024 Address:[address] [place], [place] [id number] Pcp:Oleg Juarez MD Subjective: * Chief Complaints: [...] MD Date:? 024 Generated for Milvia sweeney/Caroleg/eTransmitting on:?08/14/2024 03:17 PM EDT
--- OUTSIDE RECORDS SUMMARY | 2024-08-14 15:17 | XMS_ITS ---
Author Organization [facility] Address [address] [facility] [address] [place] [address] Care Team Providers Care Internet Cafe Manager Name Role Phone Oleg Juarez MD Primary Care Provider Renataa Derek Pineda Unavailable [phone] REASON FOR VISIT cancel appt on 01/06/2024 Encounters Encounter Location Date Provider Diagnosis [facility] [address] [facility] [address] [place] [address] 12/14/2023 Derek Lee Plan Of Treatment No Information Progress Notes * SERA KRAMER GDOB:[birth year] (83 yo F)Acc No.[id number]:12/14/2023 Patient:?ESTEFANIA KRAMERINA Sandhya :1940???Age:83 Y???Sex:Female Address:[address] [place] [address], [address] * true * Date:? Generated for Milvia sweeney/Erik/eTransmitting on:?08/14/2024 03:17 PM EDT
--- OUTSIDE RECORDS SUMMARY | 2024-08-14 15:17 | XMS_ITS | Patient Health Record ---
Author Organization [facility] Address [address] [place] [address] Care Team Providers Care Web Publisher Name Role Phone Oleg Juarez MD Primary Care Provider Yan hernandez LeeDerek Unavailable [phone] Allergies No Known Allergies Reason For Referral [...] Problem Status W/U Status Risk Notes Problem 39394912 Diarrhea (R19.7) Active confirmed Problem 063235963 Irritable bowel syndrome with diarrhea (K58.0) Active confirmed Problem Irritable bowel syndrome characterized by constipation (623426748) Irritable bowel syndrome with constipation (K58.9) Active confirmed Problem 68251282 Change in bowel function (R19.4) Active confirmed Problem Abdominal pain (96492779) Abdominal cramps (R10.9) Active confirmed Problem 994773011 Abdominal pain, acute, periumbilical (R10.33) Active confirmed Encounters Encounter Location Date Provider Diagnosis [facility] [address] [place] [address] 12/14/2023 Derek Lee Plan Of Treatment Future Test Test Name Order Date COLONOSCOPY 07/31/2015 Insurance Providers Payer Name Payer Address Payer Phone Subscriber Number Group Number Insured Name Patient Relationship to Insured Coverage Start Date Coverage End Date [employer] Medicare Adv (PPO) [address] [address] [place] [address] [id number] SERA KRAMER Self - patient is the [...]
== END 2024-08-14 15:10 | disposition home or self-care (01) ==
LOC: HO.HPSW 13:56
PROVIDERS: PCP Internal Medicine; Visit Provider Nurse Practitioner Family
DX: R06.00 Dyspnea, unspecified (principal); Z87.891 Personal history of nicotine dependence; R94.2 Abnormal results of pulmonary function studies; D64.9 Anemia, unspecified
CPT/HCPCS: 99214

== ENCOUNTER → 2024-08-14 13:55 | Outpatient (BNVA) | payer MEDICARE, SELFPAY | PROVIDERS: PCP Internal Medicine; Visit Provider Nurse Practitioner Family | DX: R06.00 Dyspnea, unspecified (principal); R94.2 Abnormal results of pulmonary function studies; D64.9 Anemia, unspecified; Z87.891 Personal history of nicotine dependence | CPT/HCPCS: 99212 ==

== ENCOUNTER 2024-09-03 07:15 | Outpatient (REF) | payer MEDICARE, SELFPAY ==
--- NOTE | ~2024-09-03 | CT_ITS ---
CLINICAL HISTORY: Z87.891 - Personal history of nicotine dependence CT chest without contrast Comparison: CR/SR - XR CHEST 2V - 06/08/24 11:56 EDT Findings: The heart is normal size. Calcification of the coronary vasculature. The visualized thyroid is within normal limits. Large hiatal hernia. Within the right upper lobe, there is a multinodular region of ground-glass density, spanning roughly 16 mm anteroposterior (image 30). There is mild diffuse ground-glass density within the right upper lobe. Multiple smaller bilateral pulmonary nodules are present (for example there is a 5 mm nodule within the left lower lobe posterolaterally on image 94). The visualized upper abdomen is unremarkable. No acute fractures. IMPRESSION: 1. LungRADS 0: Incomplete screening due to presumed right upper lobe pneumonia. Given the nodular configuration, malignancy can not be excluded. Follow-up chest CT in 3 months recommended for further assessment and as new baseline for screening. 2. Coronary artery disease. 3. Hiatal hernia. ##L0## This document has been electronically signed by: Mookie Zapata MD on 09/03/2024 14:39:36
--- OUTSIDE RECORDS SUMMARY | 2024-09-03 07:17 | XMS_ITS | Patient Health Record ---
Author Organization [facility] Address [address] [place] [address] Care Team Providers Care Molasses And Caramel Operator Name Role Phone Oleg Juarez MD Primary Care Provider Yan hernandez LeeDerek Unavailable [phone] Allergies No Known Allergies Reason For Referral [...] Problem Status W/U Status Risk Notes Problem 83397796 Diarrhea (R19.7) Active confirmed Problem 142673722 Irritable bowel syndrome with diarrhea (K58.0) Active confirmed Problem Irritable bowel syndrome characterized by constipation (094103610) Irritable bowel syndrome with constipation (K58.9) Active confirmed Problem 51419121 Change in bowel function (R19.4) Active confirmed Problem Abdominal pain (55742137) Abdominal cramps (R10.9) Active confirmed Problem 774780200 Abdominal pain, acute, periumbilical (R10.33) Active confirmed Encounters Encounter Location Date Provider Diagnosis [facility] [address] [place] [address] 12/14/2023 Derek Lee Plan Of Treatment Future Test Test Name Order Date COLONOSCOPY 07/31/2015 Insurance Providers Payer Name Payer Address Payer Phone Subscriber Number Group Number Insured Name Patient Relationship to Insured Coverage Start Date Coverage End Date [employer] Medicare Adv (PPO) [address] [address] [place] [address] [id number] SERA KRAMER Self - patient is the insured Medical (General) History Medical History History ICD Code Denies SC,DM,CVA,Lung disease,renal dise ase Neuropathy in feet Glaucoma [...]
== END 2024-09-03 07:16 | disposition home or self-care (01) ==
LOC: HO.CT 07:15
PROVIDERS: PCP Internal Medicine; Visit Provider Nurse Practitioner Family
DX: R94.2 Abnormal results of pulmonary function studies (principal); Z87.891 Personal history of nicotine dependence
CPT/HCPCS: 71250

== ENCOUNTER → 2024-09-03 07:17 | Outpatient (BNV) | payer MEDICARE, SELFPAY | PROVIDERS: PCP Internal Medicine; Visit Provider Radiology Diagnostic Radiology | DX: J18.1 Lobar pneumonia, unspecified organism (principal); I25.10 Atherosclerotic heart disease of native coronary artery without angina pectoris; K44.9 Diaphragmatic hernia without obstruction or gangrene | CPT/HCPCS: 71250 ==

== ENCOUNTER 2024-09-18 15:22 | Outpatient (AMB) | payer MEDICARE, SELFPAY ==
--- NOTE | 2024-09-18 15:28 | MHC.PC.OV ---
Vital Signs 09/18/24 15:32 Height 5 ft 3 in Weight 122 lb BMI 21.6 BP 116/58 L Blood Pressure Location Lt brachial Position Sitting Respiration 14 Pulse 63 Pulse Source Pulse Oximeter Temp 97.3 F Temp Source Oral Pulse Oximetry (%) 97 Oxygen Delivery Method Room Air Intake Visit Reasons: anemia and LERNER with PCP 30 minutes Intake Note: Follow up. Having urinary frequency Quality Auditor Required: No Allergies No Known Allergies Allergy (Mild, Verified 09/18/24 15:29) NONE Tobacco use date assessed: 09/18/24 Fall risk assessment: No Falls in past year Last assessed Fall Risk: 09/18/24 Dental Screening Dental Screen Date: 08/06/24 HPI HPI Comments History of Present Illness Details The patient is a 83 year old female with a significant past medical history of CAD, PAD,hypertension, hyperlipidemia, GERD and anxiety presenting for follow up CV:Her current medication regimen includes metoprolol succinate ER 50 mg daily, hydrochlorothiazide 25 mg daily, Zetia 10 mg daily, amlodipine 5 mg daily. She did not tolerate imdur Patient had a cardiac catheterization procedure 07/12/[address] Camacho. Diagnostic recommendations including continue baby aspirin 81 mg a day indefinitely, aggressive secondary risk factor modification and reassessment in a few weeks if she continued to have dyspnea despite antianginals. She was started on isosorbide mononitrate, but it was discontinued due to dizziness. The catheterization demonstrated calcified stenosis in the right coronary artery and stenosis in the LAD. Patient said she develops severe pain and spasming in her right arm during the procedure so they elected to treat her medically rather than with stents. It is noted that if she continued to have dyspnea on exertion a femoral approach should be considered. She has a history of PCI to the circumflex and RCA in 2017. She was referred to [facility] by cardiology but insurance does not cover She has also seen Dr Church and had testing for right common iliac artery stenosis and for ?of mesenteric ischemia. GI: Following with gastroenterology. There has been some interval improvement is issues with linzess. For the past year was experiencing constipation and overflow diarrhea. Saw Dr Lee for same issue in June and has appt for Dec planned. She has been prescribed metamucil, miralax, bentyl and lactulose. She used the first two for 2 bottles, continues to use the bentyl. Tells me no relief from these. She did not try the lactulose yet. She is getting abdominal pain and cramping with bowel movement. She had recent CT scan of the abdomen and pelvis without any acute pathology. It did show some non small pulmonary nodules and Bulky calcific plaque of the right common iliac artery which results in at least some degree of stenosis. Would correlate for symptoms of claudication. Patient denies increased pain with eating. She has not started the lactulose and is not in receipt of the linzess that I ordered her. She continues to suffer from the same symptoms. She is more anemic than on last check. She was able to get a GI visit slightly sooner-in November GI: Dr Britton Cardiac: Dr Carr Vascular: Dr Church [place] [facility] Ophtho: Dr Johnson ROS see HPI PHYSICAL EXAM: GENERAL: Alert and oriented x 3. NAD EYES: EOMI. Anicteric. HENT: Moist mucous membranes. No scleral icterus. No cervical lymphadenopathy. LUNGS: Clear to auscultation bilaterally. CARDIOVASCULAR: Regular rate and rhythm. ABDOMEN: Soft, non-tender +bs EXTREMITIES: No edema. Non-tender. SKIN: No rashes or lesions. Warm. NEUROLOGIC: No focal neurological deficits. CN II-XII grossly intact PSYCHIATRIC: Cooperative. Appropriate mood and affect [facility] Medical History Allergic rhinitis HTN (hypertension) CAD (coronary artery disease) Bilateral carotid artery disease Hyperlipidemia Surgical History Stented coronary artery Hx of cardiac cath Hx of endoscopy Hx of colonoscopy Hx of eye surgery Hx of foot surgery Family History Mother CVD (cardiovascular disease) Social History Housing: House Alcohol intake: current Alcohol intake frequency: a few times a week Patient Tobacco Use Status: Former Tobacco user Years Smoked: 40 +/- e-Cigarette/Vaping Use: Never Used Second Hand Smoke Exposure: No Use of substances other than those prescribed or required for medical reasons: No service: No Current occupational status: retired Cognitive needs: No Hearing needs: No Vision needs: No Questionnaire Thrive Questionnaire Date Thrive assessed: 10/14/23 AUDIT C Alcohol Use Questionnaire (AUDIT-C) 1. How often do you have a drink containing alcohol?: Never 3. How often do you have six or more drinks on one occasion?: Never Total Score: 0 LAURIE-7 AMB Questionnaire LAURIE-7 Date LAURIE - 7 assessed: 08/06/24 Source: Developed by Drs. Jun Bo, Kim Coello, Zach Corral and colleagues, with an educational jameel from [employer]. Physical exam (Primary Care) Vital Signs: Last Vital Signs Temp 97.3 F 09/18/24 15:32 Pulse 63 09/18/24 15:32 Resp 14 09/18/24 15:32 BP 116/58 L 09/18/24 15:32 Pulse Ox 97 09/18/24 15:32 Oxygen Delivery Method Room Air 09/18/24 15:32 BMI result Body Mass Index 21.6 Tobacco/Smoking Status: Tobacco use Status Tobacco use date assessed 09/18/24 09/18/24 15:37 Patient Tobacco Use Status Former Tobacco user 09/18/24 15:37 e-Cigarette/Vaping Use Never Used 09/18/24 15:37 Thrive Assessment: Date of Thrive Assessment Date Thrive assessed 10/14/23 09/18/24 15:37 Coding Level of Care Code New Pt Level 4 (48341) Complex EM visit Add On G2211 Diagnoses Primary hypertension I10 Hypertension type: primary hypertension Coronary artery disease, unspecified vessel or lesion type, unspecified whether angina present, unspecified whether [place] or transplanted heart I25.10 Coronary Disease-Associated Artery/Lesion type: unspecified vessel or lesion type [place] vs. transplanted heart: unspecified whether [place] or transplanted heart Associated angina: unspecified whether angina present Anxiety F41.9 Assessment & Plan Assessment & Plan (1) HTN (hypertension): Code(s): I10 - Essential (primary) hypertension Category: Medical Qualifiers: Hypertension type: primary hypertension Qualified Code(s): I10 - Essential (primary) hypertension (2) CAD (coronary artery disease): Code(s): I25.10 - Atherosclerotic heart disease of [place] coronary artery without angina pectoris Category: Medical Qualifiers: Coronary Disease-Associated Artery/Lesion type: unspecified vessel or lesion type [place] vs. transplanted heart: unspecified whether [place] or transplanted heart Associated angina: unspecified whether angina present Qualified Code(s): I25.10 - Atherosclerotic heart disease of [place] coronary artery without angina pectoris (3) Anxiety: Code(s): F41.9 - Anxiety disorder, unspecified Category: Medical Plan 83 yo for follow up CV: Blood pressure well controlled Anemia-check for stability GI symptoms stable Orders: Orders Complete Blood Count Auto Diff 09/18/24 D64.9 - Anemia, unspecified IRON PROFILE 09/18/24 D64.9 - Anemia, unspecified Vitamin B12 and Folate 09/18/24 D64.9 - Anemia, unspecified Referrals Cardiology Referral I25.10 - Atherosclerotic heart disease of [place] coronary artery without angina pectoris Medications: Discontinued cefpodoxime must administer with a meal/food Discontinued Reason: Doctor's Order 200 mg PO BID 20 tabs 0RF
[2024-09-18 15:32] VITALS: BP 116/58; PULSE 63; RESP 14; TEMP 36.3; O2SAT 97; BMI 21.6
--- OUTSIDE RECORDS SUMMARY | 2024-09-18 18:35 | XMS_ITS | Patient Health Record ---
Author Organization [facility] Address [address] [place] [address] Care Team Providers Care Spotter Driver Name Role Phone Oleg Juarez MD Primary Care Provider Yan hernandez LeeDerek Unavailable [phone] Allergies No Known Allergies Reason For Referral [...] Problem Status W/U Status Risk Notes Problem 91209201 Diarrhea (R19.7) Active confirmed Problem 730650634 Irritable bowel syndrome with diarrhea (K58.0) Active confirmed Problem Irritable bowel syndrome characterized by constipation (957557921) Irritable bowel syndrome with constipation (K58.9) Active confirmed Problem 01506084 Change in bowel function (R19.4) Active confirmed Problem Abdominal pain (18193425) Abdominal cramps (R10.9) Active confirmed Problem 508264501 Abdominal pain, acute, periumbilical (R10.33) Active confirmed Encounters Encounter Location Date Provider Diagnosis [facility] [address] [place] [address] 12/14/2023 Derek Lee Plan Of Treatment Future Test Test Name Order Date COLONOSCOPY 07/31/2015 Insurance Providers Payer Name Payer Address Payer Phone Subscriber Number Group Number Insured Name Patient Relationship to Insured Coverage Start Date Coverage End Date [employer] Medicare Adv (PPO) [address] [address] [place] [address] [id number] SERA KRAMER Self - patient is the insured Medical (General) History Medical History History ICD Code Denies [place],DM,CVA,Lung disease,renal dise ase Neuropathy in feet Glaucoma [...]
== END 2024-09-18 16:09 | disposition home or self-care (01) ==
LOC: HO.HMCFM 15:22
PROVIDERS: PCP Internal Medicine; Visit Provider Internal Medicine
DX: I10 Essential (primary) hypertension (principal); I25.10 Atherosclerotic heart disease of native coronary artery without angina pectoris; F41.9 Anxiety disorder, unspecified

== ENCOUNTER → 2024-09-18 15:22 | Outpatient (BNVA) | payer MEDICARE, SELFPAY | PROVIDERS: PCP Internal Medicine; Visit Provider Internal Medicine | DX: Z13.89 Encounter for screening for other disorder (principal) ==

== ENCOUNTER 2024-09-18 15:58 | Outpatient (REF) | payer MEDICARE, SELFPAY ==
[2024-09-18 18:36] LABS: MANUAL DIFF FLAG NO
[2024-09-18 19:02] LABS: Basophils Absolute Auto 0.1 X10*3/uL (0.0-0.2); Basophils Percent Auto 1.1 % (0-2); Eosinophils Absolute Auto 0.2 X10*3/uL (0.0-0.4); Eosinophils Percent Auto 3.4 % (0-4); Hematocrit 31.2 % (37.0-47.0); Imm Gran Abs Auto 0.02 X10*3/uL (0.00-0.03); Imm Gran Pct Auto 0.3 % (0.0-0.4); Lymphocytes Absolute Auto 1.6 X10*3/uL (1.2-4.9); Lymphocytes Percent Auto 22.1 % (20-40); Mean Corpuscular HGB Conc 32.1 g/dl (31.0-35.0); Mean Corpuscular Hemoglobin 24.3 pg (27.0-33.0); Mean Corpuscular Volume 75.9 fL (80.0-98.0); Mean Platelet Volume 10.8 fL (9.4-12.3); Monocytes Absolute Auto 0.5 X10*3/uL (0.1-1.2); Monocytes Percent Auto 6.9 % (2-11); Neutrophils Absolute Auto 4.7 x10*3/uL (2.0-8.3); Neutrophils Percent Auto 66.2 % (45-73); Platelet Count 315 X10*3/uL (160-400); Red Blood Count 4.11 X10*6/uL (4.20-5.50); Red Cell Distribution Width 15.8 % (11.0-16.0); White Blood Count 7.1 X10*3/uL (4.8-10.8)
[2024-09-18 19:10] LABS: Anion Gap 12 (12-20); Blood Urea Nitrogen 32 mg/dL (9-16); Calcium 9.3 mg/dL (8.4-10.2); Carbon Dioxide 27 mmol/L (22-29); Chloride 102 mmol/L (96-108); Estimated Glomerular Filt Rate 56; Glucose Random 89 mg/dL (60-115); Iron 38 mcg/dL (30-160); Percent Iron Saturation 11 % (15-50); Potassium 4.2 mmol/L (3.3-5.1); Sodium 137 mmol/L (135-145); Total Iron Binding Capacity 332 mcg/dL (228-428); Unsaturated Iron Binding 294 ug/dL
[2024-09-18 19:13] LABS: Appearance Urine Clear; Color Urine Yellow; Glucose Urine UA Negative (Negative); Leukocyte Esterase Urine Small (1+) (Negative); Nitrite Urine Negative (Negative); Specific Gravity - Urine 1.015 (1.005-1.025); UMIC TRIGGER UACC YES; Urine Blood Negative (Negative); Urine Ketones Negative (Negative); Urine Protein Negative (Neg-Trace)
[2024-09-18 19:16] LABS: Iron 38 mcg/dL (30-160); Percent Iron Saturation 11 % (15-50); Total Iron Binding Capacity 334 mcg/dL (228-428); Unsaturated Iron Binding 296 ug/dL
[2024-09-18 19:19] LABS: B Type Natriuretic Peptide 162 pg/mL (<100)
[2024-09-18 19:31] LABS: Ferritin 28 ng/mL (10-250)
[2024-09-18 19:36] LABS: Bacteria Urine None Seen (None Seen); Hyaline Casts Urine 0-2 /LPF (0-2); RBC Urine 0-2 /HPF (0-2); Squamous Epithelial Cell Urine 0-2 /HPF (0-2); UACC Culture Trigger YES; WBC Urine 0-5 /HPF (0-5)
[2024-09-18 19:43] LABS: Folate 10.2 ng/mL (> or = 4.0); Vitamin B12 916 pg/mL (200-900)
== END 2024-09-18 15:59 | disposition home or self-care (01) ==
LOC: HO.WFDLDS 15:58
PROVIDERS: Nurse Practitioner Family; Physician Assistant; Referring Provider Physician Assistant Medical; Visit Provider Internal Medicine
DX: I10 Essential (primary) hypertension (principal); I25.10 Atherosclerotic heart disease of native coronary artery without angina pectoris; F41.9 Anxiety disorder, unspecified; D64.9 Anemia, unspecified; Z79.899 Other long term (current) drug therapy; R06.02 Shortness of breath
CPT/HCPCS: 36415; 80048; 81001; 81003; 82607; 82728; 82746; 83540; 83880; 85025; 87086; 99212

== ENCOUNTER 2024-09-25 08:53 | Outpatient (AMB) | payer MEDICARE, SELFPAY ==
--- OUTSIDE RECORDS SUMMARY | 2024-09-19 23:59 | XMS_ITS | Continuity of Care Document ---
Author Organization [facility] Address [address] [place] [address]- Care Team Providers Care Senior Financial Consultant Name Role Phone Belle SARAH, Felicita Waller Primary Care Physician [phone] [id number] Date(s): 09/12/24 - 09/19/24 [facility] [address] [place] [address]- Attending Physician: Mireille JI, Brenda Darling Admitting Physician: Mireille JI, Brenda Darling Referring Physician: Felicita Odonnell MD Encounter [...] 30.0 Unit: tablet Repeat number: 1 atorvastatin 80 mg oral tablet 1 tablet = 80 mg, By Mouth, Daily, # 30 tablet, 5 Refills, Maintenance, 07/12/24 9:41:00 AM EDT, Tablet, Partial fill upon patient request if the prescription is for a schedule II opioid drug. Start Date: 07/12/24 Status: Ordered Quantity: 30.0 Unit: tablet Repeat number: 1 hydrochlorothiazide 12.5 mg oral tablet 1 tablet = 12.5 mg, By Mouth, Daily, # 30 tablet, 0 Refills, Maintenance, 07/12/24 6:09:00 AM EDT, Tablet, Partial fill upon patient request if the prescription is for a schedule II opioid drug. Start Date: 07/12/24 Status: Ordered Quantity: 30.0 Unit: tablet Repeat number: 1 isosorbide mononitrate 30 mg oral tablet, extended release 60 mg, By Mouth, Daily, # 180 tablet, Refills 0, Tot. Refills 0, Maintenance, 07/12/24 12:24:00 PM EDT, Route to Pharmacy Electronically, [facility], Partial fill upon patient request ifthe prescription is for a schedule II opioid drug., 160, cm, 07/12/24 10:49:00 EDT, Height, 59, kg,07/12/24 10:49:00 EDT, Dry Weight Start Date: 07/12/24 Stop Date: 10/10/24 Status: Ordered Quantity: 180.0 Unit: tablet Repeat number: 1 Indications: Atherosclerotic heart disease of [place] coronary artery without angina pectoris; lactulose 20 gm oral powder for reconstitution 1 pack/packet = 20 Gm, By Mouth, 2 times a day, # 20 Gm, 0 Refills, Maintenance, 07/12/24 6:12:00 AMEDT, REC Powder, Partial fill upon patient request if the prescription is for a schedule II opioid drug. Start Date: 07/12/24 Status: Ordered Quantity: 20.0 Unit: g Repeat number: 1 linaclotide 145 mcg oral capsule 1 capsule = 145 mcg, By Mouth, Daily, # 30 capsule, 0 Refills, Maintenance, 07/12/24 6:11:00 AM EDT,Capsule, Partial fill upon patient request if the prescription is for a schedule II opioid drug. Start Date: 07/12/24 Status: Ordered Quantity: 30.0 Unit: capsule Repeat number: 1 meloxicam 15 mg oral tablet 1 tablet = 15 mg, By Mouth, Daily, # 30 tablet, 0 Refills, Maintenance, 07/12/24 6:10:00 AM EDT, Tablet, Partial fill upon patient request if the prescription is for a schedule II opioid drug. Start Date: 07/12/24 Status: Ordered Quantity: 30.0 Unit: tablet Repeat number: 1 omeprazole 20 mg oral [...] XL 100 mg oral tablet, extended release 50 mg, 0.5, tablet, By Mouth, Daily, Refills 0, Maintenance, [...] Active Superior mesenteric artery stenosis Confirmed Active Social History Social History Type Response Smoking Status Former smoker; Tobac co user in household: No entered on: 12/02/15 Sex Sex Representation Female (finding) Note * Alka Alexander: PERFORM Event Display: Patient Education/Instruction Authored Date: [id number] Ambulatory [place] [address] Name: SERA KRAMER : 1940?? Visit: 09/12/2024 06:47?? Ambulatory Visit Instructions ?? Your Care Team Primary Care Provider Belle SARAH, Felicita Waller? This Visit Provider Brenda Kendrick NP Your Diagnosis Carotid artery stenosis Vitals Signs Height: 160 cm Weight: 55.34 kg Body Mass Index: 21.62 kg/m2 Body surface area: 1.57 Medications The list below reflects the information in our records and provided by you today along with any changes made during this visit. Please continue your medications until treatment is completed or stopped by your provider. If this is different from the information you have or there are other questions,please contact the prescribing provider. What How Much When Why Instructions Unchanged Alprazolam 0.5 Milligram Oral As needed for as needed for anxiety Unchanged Amlodipine (amLODIPine 5 mg oral tablet) 1 tab(s) Oral Daily Unchanged Aspirin (aspirin 81 mg oral tablet) 1 tab(s) Oral Daily Unchanged Atorvastatin (atorvastatin 80 mg oral tablet) 1 tab(s) Oral Daily Unchanged Ezetimibe (Zetia 10 mg oral tablet) 1 tab(s) Oral Daily Unchanged Hydrochlorothiazide (hydrochlorothiazide 12.5 mg oral tablet) 1 tab(s) Oral Daily Unchanged Isosorbide Mononitrate (isosorbide mononitrate 30 mg oral tablet, extended release) 60 Milligram Oral Daily CAD in [place] artery Duration: 90 Days Unchanged Lactulose (lactulose 20 gm oral powder for reconstitution) 1 pack/packet Oral Twice a day Unchanged linaclotide (linaclotide 145 mcg oral capsule) 1 capsule Oral Daily Unchanged Meloxicam (meloxicam 15 mg oral tablet) 1 tab(s) Oral Daily Unchanged Metoprolol (Toprol XL 100 mg oral tablet, extended release) 0.5 tab(s) Oral Daily Unchanged Naproxen (Aleve) 220 [...] are strongly encouraged to quit. Please call [employer] [facility] at [phone] or 4-729-166[employer] (1378) or log in to [email or web address] for referrals to smoking cessation programs. ?? The National Suicide Prevention Hotline is available 18/10 if you or someone you know needs to find a reason to keep living. By calling 2-708-968-[employer] (0195) you'll be connected to a skilled, trained counselor at a crisis center in your area. [facility] [employer] Portal You can view and manage your care through the patient portal or by using a health care pinky of your choosing. [employer] is a website that allows you to securely view your medical information including your hospital discharge summary, office visit summaries, medications and follow-up visits. You can also request appointments, renew medications, and request access to your medical information using a health care pinky of your choosing, or just ask a question. You can enroll at [email or web address] or register during your next office visit. [facility], in keeping with [facility] guidance, no longer requires face masks [...] primary care provider, you may find a [facility] provider by calling [facility] at [phone]. Patient Care team information Care Team Personnel Name: Belle SARAH, Felicita Waller Position: Reference Physician Member Role: PCP Address: [address] [place] [address] Telecom: Care Team Related Persons Name: HASMUKH CASTRO Name: CLEOPATRA MCWILLIAMS Name: DEREK KRAMER Insurance Providers Guarantor name: SERA KRAMER Health Plan Information #: 1 Payer: [facility] [employer] PPO Payer Identifier: [place] Member Number: [id number] Group Number: [id number] Subscriber Identifier: [id number] Relationship to Subscriber: self Coverage Type: Medicare PPO Coverage Verification Date: NA Telecom: NA Address:
--- NOTE | 2024-09-25 08:51 | MHC.OFFVIS ---
Vital Signs 09/25/24 09:00 Height 5 ft 3 in Weight 123 lb 6 oz BMI 21.9 BP 140/62 H Blood Pressure Location Rt brachial Position Sitting Pulse 59 Pulse Source Pulse Oximeter Pulse Oximetry (%) 98 Oxygen Delivery Method Room Air Intake Visit Reasons: Continued sob/ productive cough Allergies No Known Allergies Allergy (Mild, Verified 09/25/24 09:04) NONE HPI HPI Continued sob/ productive cough: Details: Fabio sexton pleasant 83 year old, former 20 pack year smoker, quit 30+ years ago with underlying CAD s/p coronary stenting x 2, HTN and HLD. Prior PFT revealed unremarkable findings other than isolated decrease in DLCO suggests the pulmonary edema. She is under the care of [facility] [place] [place] cardiology and recently underwent right heart catheterization via right arm unfortunately with difficult access with recommendations for repeat right heart catheterization via femoral route. She has been reluctant to proceed with this and will be following up with PVC, awaiting consultation. Information given to call to have a sooner appt. She was recently treated for pneumonia, previously with a productive green cough, resolved with Vantin. She continues to report dyspnea on exertion which may be related to severe CAD. [facility] Medical History Allergic rhinitis HTN (hypertension) CAD (coronary artery disease) Bilateral carotid artery disease Hyperlipidemia Surgical History Stented coronary artery Hx of cardiac cath Hx of endoscopy Hx of colonoscopy Hx of eye surgery Hx of foot surgery Family History Mother CVD (cardiovascular disease) Social History Housing: House Alcohol intake: current Alcohol intake frequency: a few times a week Patient Tobacco Use Status: Former Tobacco user Years Smoked: 40 +/- e-Cigarette/Vaping Use: Never Used Second Hand Smoke Exposure: No service: No Current occupational status: retired Cognitive needs: No Hearing needs: No Vision needs: No Review of Systems Const Denies chills, Denies excessive sweating, Denies fever(s), Denies headache(s) and Denies night sweats Eyes Denies dry eyes, Denies irritation and Denies itchy eyes ENT Reports Normal hearing present, Denies headache(s), Denies nasal congestion, Denies nasal discharge, Denies post nasal drip and Denies sore throat Card Denies chest pain, Denies chest pain at rest, Denies chest pain with activity, Denies claudication, Denies leg edema, Denies orthopnea and Denies paroxysmal nocturnal dyspnea Resp Denies chest congestion, Denies excessive phlegm production, Denies pain on inspiration, Denies pain with cough, Denies stridor and Denies wheezing Musc Denies myalgias Neuro Reports Normal hearing present and Denies headache(s) Endo Denies excessive sweating Gil/Lymph Denies lymphadenopathy Aller/Immun Denies itchy eyes, Denies seasonal rhinorrhea and Denies wheezing Physical Exam Vital Signs: Last Vital Signs Pulse 59 09/25/24 09:00 BP 140/62 H 09/25/24 09:00 Pulse Ox 98 09/25/24 09:00 Oxygen Delivery Method Room Air 09/25/24 09:00 BMI result Body Mass Index 21.9 Const General: cooperative, comfortable, no acute distress and alert Orientation/consciousness: patient oriented x3 Limitations: ambulation with cane (walking stick) HEENT Head: Yes normal to inspection, Yes normocephalic and Yes atraumatic Ears: hearing grossly normal bilaterally and external ears normal Eyes General: appearance normal, both eyes and all related structures Eyelids: Yes eyelids normal Sclerae: sclerae normal EOM: EOMs intact bilaterally Neck Neck: Yes normal visual inspection and Yes no lymphadenopathy Lymphatic: no lymphadenopathy noted Chest Chest palpation & inspection: normal inspection of the chest Resp Effort & Inspection: normal respiratory effort, able to speak in complete sentences, no audible wheezes, no cough, no stridor, not tachypneic, no tripod positioning and no use of accessory muscles Auscultation: clear to auscultation bilaterally Cardio Jugular venous distension: no JVD Rate: regular rate Rhythm: regular rhythm Skin Other: warm, dry General skin exam: no rashes or lesions noted Neuro General: patient oriented x3 Cranial nerves: Yes Normal hearing present Cognition (Neuro): normal cognition Psych Appearance: grossly normal and well kempt Speech and movement: Normal speech and movement present and Clear speech present Affect: normal affect Attitude: cooperative Thought process: Normal thought process present Thought content: Normal thought content present Insight: Good insight present (Psych) Judgement: Good judgement present (Psych) Results Reviewed Results Reviewed: [address] [address] [address] Scan Report Signed Patient: Fabio Anaya MR#: [id number] : 1940 Acct:[id number] Age/Sex: 83 / F ADM Date: 09/03/24 Loc: HO.CT Attending Dr: Yumi Gilbert NP Ordering Physician: Yumi Gilbert NP Date of Service: 09/03/24 Procedure(s): CT chest wo IV con Accession Number(s): [id number] cc: Felicita Odonnell MD; Yumi Gilbert NP~ Report Number: [id number]: Total DLP = 105.00 mGy-cm CLINICAL HISTORY: Z87.891 - Personal history of nicotine dependence CT chest without contrast Comparison: CR/SR - XR CHEST 2V - 06/08/24 11:56 EDT Findings: The heart is normal size. Calcification of the coronary vasculature. The visualized thyroid is within normal limits. Large hiatal hernia. Within the right upper lobe, there is a multinodular region of ground-glass density, spanning roughly 16 mm anteroposterior (image 30). There is mild diffuse ground-glass density within the right upper lobe. Multiple smaller bilateral pulmonary nodules are present (for example there is a 5 mm nodule within the left lower lobe posterolaterally on image 94). The visualized upper abdomen is unremarkable. No acute fractures. IMPRESSION: 1. LungRADS 0: Incomplete screening due to presumed right upper lobe pneumonia. Given the nodular configuration, malignancy can not be excluded. Follow-up chest CT in 3 months recommended for further assessment and as new baseline for screening. 2. Coronary artery disease. 3. Hiatal hernia. ##L0## This document has been electronically signed by: Mookie Zapata MD on 09/03/2024 14:39:36 Dictated By: Mookie Zapata MD Signed By: <Electronically signed by Mookie Zapata MD in OV> 09/03/24 1440 DD/ 1439 TD/TT: 09/03/24 1439 [place]: Assessment & Plan Assessment & Plan (1) Dyspnea: Code(s): R06.00 - Dyspnea, unspecified Category: Medical (2) Personal history of tobacco use: Code(s): Z87.891 - Personal history of nicotine dependence Category: Social Hx (3) Decreased diffusion capacity: Code(s): R94.2 - Abnormal results of pulmonary function studies Category: Medical (4) Anemia: Code(s): D64.9 - Anemia, unspecified Category: Medical Qualifiers: Anemia type: unspecified type Qualified Code(s): D64.9 - Anemia, unspecified Plan Had long discussion with patient regarding CAD which may be contributing to dyspnea and need to follow up with cardiology. She was recently referred to PVC and is awaiting consultation. Discussed signs and symptoms that require emergent evaluation. Will send for CXR to assess for resolution of PNA and assess for any other contributing factors to dyspnea. CT chest did reveal nodular configuration, malignancy can not be excluded with recommendation for follow-up chest CT in [address] in three months. Recent H/H slightly increased and has been instructed to product picker oral iron supplements from PCP. All questions were answered and patient is in agreement of plan. Will follow up in 4-6 weeks or sooner if needed. Orders: Orders XR chest 2V 09/25/24 R06.00 - Dyspnea, unspecified CT chest wo IV con 2 Months R91.1 - Solitary pulmonary nodule Coding Level of Care Code Est Pt Level 4 (25334) Diagnoses Dyspnea R06.00 Personal history of tobacco use Z87.891 Decreased diffusion capacity R94.2 Anemia, unspecified type D64.9 Anemia type: unspecified type
[2024-09-25 09:00] VITALS: BP 140/62; PULSE 59; O2SAT 98; BMI 21.9
--- OUTSIDE RECORDS SUMMARY | 2024-09-25 09:13 | XMS_ITS | Patient Health Record ---
Author Organization [facility] Address [address] [place] [address] Care Team Providers Care Maori Liaison Adviser Name Role Phone DARIN KAHN PA-C Primary Care Provider Derek Weir Unavailable [phone] Allergies No Known Allergies Reason For Referral [...] Problem Status W/U Status Risk Notes Problem 70989591 Diarrhea (R19.7) Active confirmed Problem 862624082 Irritable bowel syndrome with diarrhea (K58.0) Active confirmed Problem Irritable bowel syndrome characterized by constipation (679836055) Irritable bowel syndrome with constipation (K58.9) Active confirmed Problem 05742365 Change in bowel function (R19.4) Active confirmed Problem Abdominal pain (91786790) Abdominal cramps (R10.9) Active confirmed Problem 652218826 Abdominal pain, acute, periumbilical (R10.33) Active confirmed Encounters Encounter Location Date Provider Diagnosis [facility] [address] [place] [address] 12/14/2023 Derek Lee [facility] [address] [place] [address] 09/24/2024 Derek Lee Plan Of Treatment Future Test Test Name Order Date COLONOSCOPY 07/31/2015 Insurance Providers Payer Name Payer Address Payer Phone Subscriber Number Group Number Insured Name Patient Relationship to Insured Coverage Start Date Coverage End Date [employer] Medicare Adv (PPO) [address] [address] [place] [address] [id number] SERA KRAMER Self - patient is the insured Medical (General) History Medical History History ICD Code Denies [place],DM,CVA,Lung disease,renal dise ase Neuropathy in feet Glaucoma Carotid artery disease--followed by Dr. Quan Anxiety Hyperlipidemia Negative screening colonosco py in February of [address] Jimenez, other than diverticulosis GERD--Negative upper endosco py in February [address] Jimenez, other than a described large hiatal hernia Negative colonoscopy with wi in 07/2015. Biopsies revealed some nonspecific inflammation [...]
== END 2024-09-25 09:39 | disposition home or self-care (01) ==
LOC: HO.HPSW 08:53
PROVIDERS: PCP Internal Medicine; Visit Provider Nurse Practitioner Family
DX: R06.00 Dyspnea, unspecified (principal); Z87.891 Personal history of nicotine dependence; R94.2 Abnormal results of pulmonary function studies; D64.9 Anemia, unspecified
CPT/HCPCS: 99214

== ENCOUNTER → 2024-09-25 08:53 | Outpatient (BNVA) | payer MEDICARE, SELFPAY | PROVIDERS: PCP Internal Medicine; Visit Provider Nurse Practitioner Family | DX: R06.09 Other forms of dyspnea (principal); R05.9 Cough, unspecified; I25.10 Atherosclerotic heart disease of native coronary artery without angina pectoris; I10 Essential (primary) hypertension; Z95.5 Presence of coronary angioplasty implant and graft; R94.2 Abnormal results of pulmonary function studies; D64.9 Anemia, unspecified; Z87.891 Personal history of nicotine dependence | CPT/HCPCS: 99212 ==

== ENCOUNTER 2024-10-24 12:51 | Outpatient (AMB) | payer MEDICARE, SELFPAY ==
[2024-10-24 12:56] VITALS: BP 98/52; PULSE 56; O2SAT 98; BMI 21.8
--- NOTE | 2024-10-24 12:56 | A.OFFVIS_ITS ---
Vital Signs 10/24/24 12:56 Height 5 ft 3 in Weight 123 lb BMI 21.8 BP 98/52 L Blood Pressure Location Rt brachial Position Sitting Pulse 56 Pulse Source Pulse Oximeter Pulse Oximetry (%) 98 Oxygen Delivery Method Room Air Intake Visit Reasons: Continued sob/ productive cough Allergies No Known Allergies Allergy (Mild, Verified 10/24/24 13:00) NONE HPI HPI Continued sob/ productive cough: Details: Fabio sexton pleasant 83 year old, former 20 pack year smoker, quit 30+ years ago with underlying CAD s/p coronary stenting x 2, HTN and HLD. Prior PFT revealed unremarkable findings other than isolated decrease in DLCO suggests the pulmonary edema. She is under the care of [facility] [place] cardiology and recently underwent right heart catheterization via right arm unfortunately with difficult access with recommendations for repeat right heart catheterization via femoral route. She has been reluctant to proceed with this and will be following up with PVC. She recently was evaluated yesterday and dyspnea thought to be related to cardiac reasons and will be scheduled for repeat right heart cath in the near future. She was recently treated for pneumonia, previously with a productive green cough, resolved with Vantin. CXR 09/2024 revealed resolution of PNA. She continues to report dyspnea on exertion which may be related to severe CAD. She notes cough has returned with associated post nasal drip. Denies fevers, chills, chest congestion or wheezing. Reports dyspnea at basline. [facility] Medical History Allergic rhinitis HTN (hypertension) CAD (coronary artery disease) Bilateral carotid artery disease Hyperlipidemia Surgical History Stented coronary artery Hx of cardiac cath Hx of endoscopy Hx of colonoscopy Hx of eye surgery Hx of foot surgery Family History Mother CVD (cardiovascular disease) Social History Housing: House Alcohol intake: current Alcohol intake frequency: a few times a week Patient Tobacco Use Status: Former Tobacco user Years Smoked: 40 +/- e-Cigarette/Vaping Use: Never Used Second Hand Smoke Exposure: No service: No Current occupational status: retired Cognitive needs: No Hearing needs: No Vision needs: No Review of Systems Const Denies chills, Denies excessive sweating, Denies fever(s), Denies headache(s) and Denies night sweats Eyes Denies dry eyes, Denies irritation and Denies itchy eyes ENT Reports Normal hearing present, Denies headache(s), Denies nasal congestion, Denies nasal discharge, Denies post nasal drip and Denies sore throat Card Denies chest pain, Denies chest pain at rest, Denies chest pain with activity, Denies claudication, Denies leg edema, Denies orthopnea and Denies paroxysmal nocturnal dyspnea Resp Denies chest congestion, Denies excessive phlegm production, Denies pain on inspiration, Denies pain with cough, Denies stridor and Denies wheezing Musc Denies myalgias Neuro Reports Normal hearing present and Denies headache(s) Endo Denies excessive sweating Gil/Lymph Denies lymphadenopathy Aller/Immun Denies itchy eyes, Denies seasonal rhinorrhea and Denies wheezing Physical Exam Vital Signs: Last Vital Signs Pulse 56 10/24/24 12:56 BP 98/52 L 10/24/24 12:56 Pulse Ox 98 10/24/24 12:56 Oxygen Delivery Method Room Air 10/24/24 12:56 BMI result Body Mass Index 21.8 Const General: cooperative, comfortable, no acute distress and alert Orientation/consciousness: patient oriented x3 Limitations: ambulation with cane (walking stick) HEENT Head: Yes normal to inspection, Yes normocephalic and Yes atraumatic Ears: hearing grossly normal bilaterally and external ears normal Eyes General: appearance normal, both eyes and all related structures Eyelids: Yes eyelids normal Sclerae: sclerae normal EOM: EOMs intact bilaterally Neck Neck: Yes normal visual inspection and Yes no lymphadenopathy Lymphatic: no lymphadenopathy noted Chest Chest palpation & inspection: normal inspection of the chest Resp Effort & Inspection: normal respiratory effort, able to speak in complete sentences, no audible wheezes, no cough, no stridor, not tachypneic, no tripod positioning and no use of accessory muscles Auscultation: clear to auscultation bilaterally Cardio Jugular venous distension: no JVD Rate: regular rate Rhythm: regular rhythm Skin Other: warm, dry General skin exam: no rashes or lesions noted Neuro General: patient oriented x3 Cranial nerves: Yes Normal hearing present Cognition (Neuro): normal cognition Psych Appearance: grossly normal and well kempt Speech and movement: Normal speech and movement present and Clear speech present Affect: normal affect Attitude: cooperative Thought process: Normal thought process present Thought content: Normal thought content present Insight: Good insight present (Psych) Judgement: Good judgement present (Psych) Assessment & Plan Assessment & Plan (1) Dyspnea: Code(s): R06.00 - Dyspnea, unspecified Category: Medical (2) Personal history of tobacco use: Code(s): Z87.891 - Personal history of nicotine dependence Category: Social Hx (3) Decreased diffusion capacity: Code(s): R94.2 - Abnormal results of pulmonary function studies Category: Medical (4) Anemia: Code(s): D64.9 - Anemia, unspecified Category: Medical Qualifiers: Anemia type: unspecified type Qualified Code(s): D64.9 - Anemia, unspecified Plan Had long discussion with patient regarding CAD which may be contributing to dyspnea and need to follow up with cardiology. Discussed signs and symptoms that require emergent evaluation. CT chest did reveal nodular configuration, malignancy can not be excluded with recommendation for follow-up chest CT in 3 months which is scheduled in December. At this time patient with significant post nasal drip likely contributing to cough, will trial ipratropium. She is aware to call if symptoms do not change or worsen. All questions were answered and patient is in agreement of plan. Will follow up in 6-8 weeks or sooner if needed. Medications: New ipratropium bromide administer into each nostril 1 spray intranasal BID 30 mL 0RF Coding Level of Care Code Est Pt Level 4 (60966) Diagnoses Dyspnea R06.00 Personal history of tobacco use Z87.891 Decreased diffusion capacity R94.2 Anemia, unspecified type D64.9 Anemia type: unspecified type
--- OUTSIDE RECORDS SUMMARY | 2024-10-24 13:23 | XMS_ITS | Patient Health Record ---
Author Organization [facility] Address [address] [place] [address] Care Team Providers Care Valve Setter Name Role Phone DARIN KAHN PA-C Primary Care Provider Derek Weir Unavailable [phone] Allergies No Known Allergies Reason For Referral [...] Problem Status W/U Status Risk Notes Problem 73572737 Diarrhea (R19.7) Active confirmed Problem 754235646 Irritable bowel syndrome with diarrhea (K58.0) Active confirmed Problem Irritable bowel syndrome characterized by constipation (386332626) Irritable bowel syndrome with constipation (K58.9) Active confirmed Problem 35312194 Change in bowel function (R19.4) Active confirmed Problem Abdominal pain (31064329) Abdominal cramps (R10.9) Active confirmed Problem 876407413 Abdominal pain, acute, periumbilical (R10.33) Active confirmed Encounters Encounter Location Date Provider Diagnosis [facility] [address] [place] [address] 12/14/2023 Derek Lee [facility] [address] [place] [address] 09/24/2024 Derek Lee Plan Of Treatment Future Test Test Name Order Date COLONOSCOPY 07/31/2015 Insurance Providers Payer Name Payer Address Payer Phone Subscriber Number Group Number Insured Name Patient Relationship to Insured Coverage Start Date Coverage End Date [employer] Medicare Adv (PPO) [address] [address] [place] [address] [id number] SERA KRAMER Self - patient is the insured Medical (General) History Medical History History ICD Code Denies [place],DM,CVA,Lung disease,renal dise ase Neuropathy in feet Glaucoma Carotid artery disease--followed by Dr. Quan Anxiety Hyperlipidemia Negative screening colonosco py in February of [address] Jimenez, other than diverticulosis GERD--Negative upper endosco py in February [address] Jimenez, other than a described large hiatal hernia Negative colonoscopy with ar in 07/2015. Biopsies revealed some nonspecific inflammation [...]
== END 2024-10-24 13:33 | disposition home or self-care (01) ==
LOC: HO.HPSW 12:51
PROVIDERS: PCP Internal Medicine; Visit Provider Nurse Practitioner Family
DX: R06.00 Dyspnea, unspecified (principal); Z87.891 Personal history of nicotine dependence; R94.2 Abnormal results of pulmonary function studies; D64.9 Anemia, unspecified
CPT/HCPCS: 99214

== ENCOUNTER → 2024-10-24 12:51 | Outpatient (BNVA) | payer MEDICARE, SELFPAY | PROVIDERS: PCP Internal Medicine; Visit Provider Nurse Practitioner Family | DX: R06.00 Dyspnea, unspecified (principal); R94.2 Abnormal results of pulmonary function studies; D64.9 Anemia, unspecified; Z87.01 Personal history of pneumonia (recurrent); Z87.891 Personal history of nicotine dependence | CPT/HCPCS: 99212 ==

== ENCOUNTER 2024-11-19 11:09 | Outpatient (REF) | payer MEDICARE, SELFPAY ==
--- NOTE | ~2024-11-19 | XR_ITS ---
EXAMINATION: XR ANKLE 2 VIEWS RIGHT, XR FOOT 3 OR MORE VIEWS RIGHT HISTORY: M25.571 - Pain in right ankle and joints of right foot COMPARISON: There are no prior studies available for comparison. FINDINGS: Five views of the right foot and ankle are submitted. The bones are markedly osteopenic. The patient is status post fusion of the 1st MTP joint with plate and screws. A single screw is seen of a chronic fracture deformity of the 5th metatarsal. There is no acute fracture. There is medial subluxation of the 2nd toe at the PIP joint.. There is degenerative change of the MTP joints. There is diffuse soft tissue swelling at the ankle. XR/XR ankle RT 2V IMPRESSION: Diffuse soft tissue swelling of the ankle. Chronic changes as described. No acute fracture is seen. Electronically signed by: Jun Swanson MD 11/19/2024 12:29 PM EDT
--- NOTE | ~2024-11-19 | XR_ITS ---
EXAMINATION: XR ANKLE 2 VIEWS RIGHT, XR FOOT 3 OR MORE VIEWS RIGHT HISTORY: M25.571 - Pain in right ankle and joints of right foot COMPARISON: There are no prior studies available for comparison. FINDINGS: Five views of the right foot and ankle are submitted. The bones are markedly osteopenic. The patient is status post fusion of the 1st MTP joint with plate and screws. A single screw is seen of a chronic fracture deformity of the 5th metatarsal. There is no acute fracture. There is medial subluxation of the 2nd toe at the PIP joint.. There is degenerative change of the MTP joints. There is diffuse soft tissue swelling at the ankle. XR/XR foot RT min 3V IMPRESSION: Diffuse soft tissue swelling of the ankle. Chronic changes as described. No acute fracture is seen. Electronically signed by: Jun Swanson MD 11/19/2024 12:29 PM EDT
== END 2024-11-19 11:10 | disposition home or self-care (01) ==
LOC: HO.HMGCX 11:09
PROVIDERS: PCP Internal Medicine; Visit Provider Physician Assistant Medical
DX: S90.01XA Contusion of right ankle, initial encounter (principal); S90.31XA Contusion of right foot, initial encounter; M25.571 Pain in right ankle and joints of right foot; I10 Essential (primary) hypertension; W08.XXXA Fall from other furniture, initial encounter
CPT/HCPCS: 73600; 73630

== ENCOUNTER 2024-11-19 11:09 | Outpatient (AMB) | payer MEDICARE, SELFPAY ==
--- NOTE | 2024-11-19 11:10 | MHC.OFFWIV ---
Intake Vital Signs 11/19/24 11:11 Height 5 ft 3 in Weight 123 lb BMI 21.8 BP 144/62 H Blood Pressure Location Rt brachial Position Sitting Pulse 72 Pulse Source Pulse Oximeter Temp 97.6 F Temp Source Oral Pulse Oximetry (%) 98 Oxygen Delivery Method Room Air Intake Visit Reasons: ep rt foot swollen and pain Intake Note: pt presents with right foot pain, bruising and swelling after falling off couch 2 days ago Patient Tobacco Use Status: Former Tobacco user Allergies No Known Allergies Allergy (Verified 11/19/24 11:19) Do you need a note to return to daycare/school/sports/work: No HPI HPI Comments History of Present Illness Details History of Present Illness - The patient is an 84-year-old female presenting with a foot injury due to a fall. - The injury occurred when the patient fell off the couch on Tuesday, resulting in a twisted right ankle and right foot pain. - The patient describes the foot as having a purple discoloration and reports significant pain in the ankle area. - She has been walking on the injured foot, which has worsened the condition by Tuesday. - The patient has a history of neuropathy, which contributes to frequent falls due to lack of sensation in the feet. - She is currently on Plavix and baby aspirin, which may affect healing and bruising. - The patient also has a history of hypertension, for which she is on medication, although she did not take her blood pressure medication on the day of the visit. - She has numbness but that is normal. - She has been icing her foot and ankle. - She denies calf pain or knee pain. Physical Exam General: Cooperative, healthy appearing, comfortable, no acute distress and well developed Orientation: Patient oriented x3 Limitations: No limitations Respiratory: Normal respiratory effort and able to speak in complete sentences. Skin: No rashes or lesions noted. Large area of ecchymosis noted on the right lateral ankle and foot with edema noted. Neuro: Patient oriented x3. Sensation is intact. Extremities: No deformity noted to the right ankle or foot. TTP of the right malleolus and along the base of the 5th metatarsal. Ambulates with a cane. FROM of the right ankle. Patient was informed and verbally consented to the use of an ambient scribe for clinic note documentation during this visit. [facility] Medical History Allergic rhinitis HTN (hypertension) CAD (coronary artery disease) Bilateral carotid artery disease Hyperlipidemia Surgical History Stented coronary artery Hx of cardiac cath Hx of endoscopy Hx of colonoscopy Hx of eye surgery Hx of foot surgery Family History Mother CVD (cardiovascular disease) Social History Housing: House Alcohol intake: current Alcohol intake frequency: a few times a week Patient Tobacco Use Status: Former Tobacco user Years Smoked: 40 +/- e-Cigarette/Vaping Use: Never Used Second Hand Smoke Exposure: No service: No Current occupational status: retired Cognitive needs: No Hearing needs: No Vision needs: No Review of Systems Const All systems reviewed & are unremarkable except as noted in HPI and below Physical Exam Vital Signs: Last Vital Signs Temp 97.6 F 11/19/24 11:11 Pulse 72 11/19/24 11:11 BP 144/62 H 11/19/24 11:11 Pulse Ox 98 11/19/24 11:11 Oxygen Delivery Method Room Air 11/19/24 11:11 BMI result Body Mass Index 21.8 Results Reviewed Results Reviewed: reviewed the x-rays in the office today, no fractures Assessment & Plan Assessment & Plan (1) Contusion of ankle, right: Code(s): S90.01XA - Contusion of right ankle, initial encounter Qualifiers: Encounter type: initial encounter Qualified Code(s): S90.01XA - Contusion of right ankle, initial encounter (2) Contusion of foot, right: Code(s): S90.31XA - Contusion of right foot, initial encounter Qualifiers: Encounter type: initial encounter Qualified Code(s): S90.31XA - Contusion of right foot, initial encounter Plan Most likely contusion vs sprain vs fracture plan - Plan to obtain X-rays to assess for fractures or other injuries. - Patient advised to avoid weight-bearing on the injured foot until further evaluation. - wear ankle brace for support - rest, ice and elevation to the right ankle and foot - tylenol as needed - if no better, follow up with PCP for an ortho referral - ambulate with a cane Orders: Orders XR foot RT min 3V Today M25.571 - Pain in right ankle and joints of right foot Coding Level of Care Code Est Pt Level 4 (58778) Diagnoses Contusion of right ankle, initial encounter S90.01XA Encounter type: initial encounter Contusion of right foot, initial encounter S90.31XA Encounter type: initial encounter
[2024-11-19 11:11] VITALS: BP 144/62; PULSE 72; TEMP 36.4; O2SAT 98; BMI 21.8
--- OUTSIDE RECORDS SUMMARY | 2024-11-19 12:30 | XMS_ITS | Patient Health Record ---
Author Organization [facility] Address [address] [place] [address] Care Team Providers Care Automotive Instructor Name Role Phone DARIN KAHN PA-C Primary Care Provider Derek Weir Unavailable [phone] Allergies No Known Allergies Reason For Referral [...] Problem Status W/U Status Risk Notes Problem 82800846 Diarrhea (R19.7) Active confirmed Problem [id number] Irritable bowel syndrome with diarrhea (K58.0) Active confirmed Problem Irritable bowel syndrome characterized by constipation (623173610) Irritable bowel syndrome with constipation (K58.9) Active confirmed Problem 20309470 Change in bowel function (R19.4) Active confirmed Problem Abdominal pain (13544940) Abdominal cramps (R10.9) Active confirmed Problem [id number] Abdominal pain, acute, periumbilical (R10.33) Active confirmed Encounters Encounter Location Date Provider Diagnosis [facility] [address] [place] [address] 12/14/2023 Derek Lee [facility] [address] [place] [address] 09/24/2024 Derek Lee Plan Of Treatment Future Test Test Name Order Date COLONOSCOPY 07/31/2015 Insurance Providers Payer Name Payer Address Payer Phone Subscriber Number Group Number Insured Name Patient Relationship to Insured Coverage Start Date Coverage End Date [employer] Medicare Adv (PPO) [address] [address] [place] [address] [id number] SERA KRAMER Self - patient is the insured Medical (General) History Medical History History ICD Code Denies CT,DM,CVA,Lung disease,renal dise ase Neuropathy in feet Glaucoma Carotid artery disease--followed by Dr. Quan Anxiety Hyperlipidemia Negative screening colonosco py in February of [address] Jimenez, other than diverticulosis GERD--Negative upper endosco py in February [address] Jimenez, other than a described large hiatal hernia Negative colonoscopy with or in 07/2015. Biopsies revealed some nonspecific inflammation [...]
--- OUTSIDE RECORDS SUMMARY | 2024-11-19 12:30 | XMS_ITS | Clinical Summary ---
Author Organization [facility] Address [address] [facility] [address] Phone Care Team Providers Care Fuse Maker Name Role Phone Felicita Odonnell MD Primary Care Provider [phone] Allergies No known active allergies Medications timoloL (BETIMOL) 0.5 % ophthalmic solution Administer 1 drop into both eyes 1 (one) time each day. Active ALPRAZolam (XANAX) 0.5 mg tablet Take 1 tablet (0.5 mg total) by mouth at bedtime as needed for anxiety. Max Daily Amount: 0.5 mg Active omeprazole (PriLOSEC) [address] capsule Take 1 capsule (20 mg total) by mouth 1 (one) time each day. Do not crush or chew. Active aspirin 81 mg EC tablet Take 1 tablet (81 mg total) by mouth 1 (one) time each day. Active atorvastatin (LIPITOR) 80 mg tablet Take 1 tablet (80 mg total) by mouth at bedtime. Active metoprolol succinate (TOPROL-XL) 100 mg 24 hr tablet Take 1 tablet (100 mg total) by mouth 1 (one) time each day. Do not crush or chew. Active amLODIPine (NORVASC) 5 mg tablet Take 1 tablet (5 mg total) by mouth 1 (one) time each day. Active ezetimibe (ZETIA) 10 mg tablet Take 1 tablet (10 mg total) by mouth 1 (one) time each day. Active cyanocobalamin (Vitamin B-12) 1,000 mcg tablet Take 1 tablet (1,000 mcg total) by mouth 1 (one) time each day. Active ferrous sulfate 325 mg (65 mg elemental iron) tablet Take 1 tablet (325 mg total) by mouth 1 (one) time each day with breakfast. Active hydroCHLOROthia zide 12.5 mg tablet Take 1 tablet (12.5 mg total) by mouth 1 (one) time each day. Active Active Problems Problem Noted Date Diagnosed Date Atherosclerotic heart diseas e of [place] coronary artery without angina pectoris 10/23/2024 Bilateral carotid artery disease ([facility] V24) 0 10/23/2024 Encounters Date Type Department Care Team Description 10/24/2024 Telephone [facility] Cardiology [facility] [address] [place] [address] Uriah Castellanos MD Cardiac cath 10/23/2024 3:00 PM EDT Office Visit [facility] [address] [facility] [address] [place] [address] Uriah Castellanos MD Atherosclerotic heart disease 10/10/2024 Telephone [facility] [address] [place] [address] Felicita Odonnell MD 10/05/2024 Telephone [facility] [address] [place] [address] Felicita Odonnell MD from Last 3 Months Surgical History Surgery Date Site/Laterality Comments CARDIAC CATHETERIZATION DOEN ON 07/12/2024 AT [facility] [place] [address] [place] INDICATIONS:Shortness of breath. COLONOSCOPY EYE SURGERY FOOT SURGERY Medical History Medical History Date Comments Hypertension Anxiety Hyperlipidemia Allergic rhinitis Family History Medical History Relation Name Comments CVD Mother Relation Name Status Comments Mother Social History Tobacco Use Types Packs/Day Years Used Date Smoking Tobacco: Former Cigarettes Tobacco Cessation:Counseling Given: Not Answered Comments:1 ppd/ quit 31 years Alcohol Use Standard Drinks/Week Comments Never 0 (1 standard drink = 0.6 oz pur e alcohol) Comments Unknown Sex and Gender Information Value Date Recorded Sex Assigned at Not on file Legal Sex Female 2:17 PM EDT Gender Identity Not on file Sexual Orientation Not on file Obstetrics History Last Filed Vital Signs Vital Sign Reading Time Taken Comments Blood Pressure - - Pulse 57 10/23/2024 3:31 PM EDT Temperature - - Respiratory Rate - - Oxygen Saturation 97% 10/23/2024 3:31 PM EDT Inhaled Oxygen Concentration - - Weight 55.8 kg (123 lb) 10/23/2024 3:31 PM EDT Height 160 cm (5' 3 ) 10/23/2024 3:31 PM EDT Body Mass Index 21.79 10/23/2024 3:31 PM EDT Plan of Treatment Health Maintenance Due Date Last Done Comments DTaP,Tdap,and Td Vaccines (1 - Tdap) 11[birth year]02/1959 Pneumococcal Vaccine: 50+ Years (1 of 1 - PCV) 1990 Zoster Vaccines (1 of 2) 1990 COVID-19 Vaccine (4 - season) 2023 04/15/2021, 06/02/2020, 05/12/2020 Depression Screening 03/28/2024 Cholesterol Screening (Lipid Panel) 10/06/2024 Falls Risk Assessment 10/06/2024 Medicare Annual Wellness Visit 10/06/2024 Osteoporosis Screening (Bone Density Screening) 10/06/2024 Social Influencers of Health Screening 10/06/2024 Hypertension/CHF/CAD Annual BMP Blood Test 10/12/2024 Influenza Vaccine (#1) 2024 , 03/30/2023, 02/09/2022, Additional history exists RSV Immunization Adult Patients Completed 04/12/2024 HIB Vaccines Aged Out No longer eligi ble based on patient's age to complete this topic HPV Vaccines Aged Out No longer eligi ble based on patient's age to complete this topic Hepatitis A Vaccines Aged Out No long er eligible based on patient's age to complete this topic Hepatitis B Vaccines Aged Out No long er eligible based on patient's age to complete this topic IPV Vaccines Aged Out No longer eligi ble based on patient's age to complete this topic MMR Vaccines Aged Out No longer eligi ble based on patient's age to complete this topic Meningococcal ACWY Vaccine Aged Out N o longer eligible based on patient's age to complete this topic Meningococcal B Vaccine Aged Out No l onger eligible based on patient's age to complete this topic RSV Immunization Patients Under 20 months Aged Out No longer eligible based on patient's age to complete this topic Varicella Vaccines Aged Out No longer eligible based on patient's age to complete [place] [phone] [employer] MEDICARE Care Teams Fuse Maker Relationship Specialty Start Date End Date Felicita Odonnell MD PCP - General Internal Medicine 10/05/24
== END 2024-11-19 13:20 | disposition home or self-care (01) ==
PROVIDERS: PCP Internal Medicine; Visit Provider Physician Assistant Medical
DX: S90.01XA Contusion of right ankle, initial encounter (principal); S90.31XA Contusion of right foot, initial encounter

== ENCOUNTER → 2024-11-19 12:11 | Outpatient (BNV) | payer MEDICARE, SELFPAY | PROVIDERS: PCP Internal Medicine; Visit Provider Radiology Diagnostic Radiology | DX: M25.571 Pain in right ankle and joints of right foot (principal); R22.41 Localized swelling, mass and lump, right lower limb | CPT/HCPCS: 73600; 73630 ==

== ENCOUNTER 2024-12-13 14:16 | Outpatient (AMB) | payer MEDICARE, SELFPAY ==
--- NOTE | 2024-12-13 14:24 | A.OFFPC_ITS ---
Vital Signs 12/13/24 14:37 Height 5 ft 3 in Weight 117 lb 2 oz BMI 20.7 BP 130/50 L Blood Pressure Location Lt brachial Position Sitting Respiration 12 Pulse 78 Pulse Source Pulse Oximeter Temp 97.7 F Temp Source Oral Pulse Oximetry (%) 92 Oxygen Delivery Method Room Air Intake Visit Reasons: D/C [facility] on 12/01 Had stent in their heart Intake Note: Cardiac discharged. Plavix may be making pt dizzy. Medical Practice Manager Required: No Allergies No Known Allergies Allergy (Verified 12/13/24 14:28) Tobacco use date assessed: 09/18/24 Dental Screening Dental Screen Date: 08/06/24 HPI D/C [facility] on 12/01 Had stent in their heart HPI Details The patient is a 84 year old female with a significant past medical history of CAD, PAD,hypertension, hyperlipidemia, GERD and anxiety presenting for a hospital follow up. She was recently admitted 11/30-12/01 following a stent of the right RCA and LAD. She had significant postop nausea so was admitted for observation. She is following with Cardiology and is seeing [facility] Cardiology specifically Dr. Urias. Her current medication regimen includes metoprolol succinate ER 100 mg daily, hydrochlorothiazide 25 mg daily, amlodipine 5 mg daily. Her blood pressure today in the office is 130/50. She is on atorvastatin 80 mg and Zetia and since hospitalization/stent started on Plavix. She is accompanied by her daughter who is a nurse and has a monitoring her blood pressures and pulse at home and they have been normal. She is scheduled to see Cardiology on 12/28 for a follow up. She states since starting the Plavix it has made her dizzy and she wanted to stop this but was told that she can not by Cardiology. She says that she just feels tired and lightheaded at times. This has been an ongoing complaint but does feel worse with being on the Plavix. She is taking the aspirin. GI: We did review that she has lost a significant amount of weight in the past year, 20 lb. She states it is because she does not want to eat much and when she eats she feels full or vomits. She has been referred to GI for the anemia and states that she just did not make any of these appointments. She is supposed to be on iron but does not tolerate iron. She did have a CT of the abdomen and pelvis about a year ago which did not show any acute pathology. She is scheduled for a CT of the chest next month for a lung nodule. [facility] Medical History Allergic rhinitis HTN (hypertension) CAD (coronary artery disease) Bilateral carotid artery disease Hyperlipidemia Surgical History Stented coronary artery Hx of cardiac cath Hx of endoscopy Hx of colonoscopy Hx of eye surgery Hx of foot surgery Family History Mother CVD (cardiovascular disease) Social History Housing: House Alcohol intake: current Alcohol intake frequency: a few times a week Patient Tobacco Use Status: Former Tobacco user Years Smoked: 40 +/- e-Cigarette/Vaping Use: Never Used Second Hand Smoke Exposure: No service: No Current occupational status: retired Cognitive needs: No Hearing needs: No Vision needs: No Questionnaire PHQ-9 Over the last 2 weeks, how often have you been bothered by any of the following problems? 1. Little interest or pleasure in doing things: not at all 2. Feeling down, depressed, or hopeless: nearly every day 3. Trouble falling or staying asleep, or sleeping too much: nearly every day 4. Feeling tired or having little energy: nearly every day 5. Poor appetite or overeating: nearly every day 6. Feeling bad about yourself - or that you are a failure or have let yourself or your family down: not at all 7. Trouble concentrating on things, such as reading the newspaper or watching television: not at all 8. Moving or speaking so slowly that other people could have noticed. Or the opposite - being so fidgety or restless that you have been moving around a lot more than usual: not at all 9. Thoughts that you would be better off or of hurting yourself in some way: not at all Total score: 12 Source: Developed by Drs. Jun Bo, Kim Coello, Zach Corral and colleagues, with an educational jameel from [employer]. Thrive Questionnaire Date Thrive assessed: 10/14/23 I am a: Patient What is your living situation today?: I have a steady place to live Within the past 12 months, did the food you bought not last and you didn't have the money to get more?: Never true Within the past 12 months, did you worry whether your food would run out before you got money to buy more?: Never true Do you have trouble paying for medicines?: No Do you have trouble getting transportation to medical appointments?: No Do you have trouble paying your heating and electricity bill?: No Do you have trouble taking care of your child, family member or friend?: No Do you have trouble with day-to-day activities such as bathing, preparing meals, shopping, managing finances, etc.?: Yes Are you currently unemployed and looking for a job?: No Are you interested in more education?: No Please select the resources that you would like help with: None Currently or been in a relationship where the following occur: No concerns reported THRIVE Score: 0 AUDIT C Alcohol Use Questionnaire (AUDIT-C) 1. How often do you have a drink containing alcohol?: Monthly or less 2. How many drinks containing alcohol do you have on a typical day when you are drinking?: 1 or 2 3. How often do you have six or more drinks on one occasion?: Never Total Score: 1 LAURIE-7 AMB Questionnaire LAURIE-7 Date LAURIE - 7 assessed: 08/06/24 Feeling nervous, anxious, or on edge: 2 = More than half the days Not being able to stop or control worryin = More than half the days Worrying too much about different things: 2 = More than half the days Trouble relaxin = More than half the days Being so restless that it is hard to sit still: 0 = Not at all Becoming easily annoyed or irritable: 0 = Not at all Feeling afraid as if something awful might happen: 0 = Not at all Total LAURIE-7 score (0-4 normal; 5-9 mild; 10-14 moderate; 15-21 severe): 8 Source: Developed by Drs. Jun Bo, Kim Coello, Zach Corral and colleagues, with an educational jameel from [employer]. Physical exam (Primary Care) Vital Signs: Last Vital Signs Temp 97.7 F 12/13/24 14:37 Pulse 78 12/13/24 14:37 Resp 12 12/13/24 14:37 BP 130/50 L 12/13/24 14:37 Pulse Ox 92 12/13/24 14:37 Oxygen Delivery Method Room Air 12/13/24 14:37 BMI result Body Mass Index 20.7 Tobacco/Smoking Status: Tobacco use Status Tobacco use date assessed 09/18/24 12/13/24 14:26 Patient Tobacco Use Status Former Tobacco user 12/13/24 14:26 e-Cigarette/Vaping Use Never Used 12/13/24 14:26 PHQ-9: PHQ-9 Score PHQ-9: Total score 12 12/13/24 14:39 Thrive Assessment: Date of Thrive Assessment Date Thrive assessed 10/14/23 12/13/24 14:26 Currently or been in a relationship where the following occur: No concerns reported Const Orientation/consciousness: patient oriented x3 HENMT Ears: hearing grossly normal bilaterally Neck Thyroid: Thyroid normal Lymphatic: no lymphadenopathy noted Resp Auscultation: clear to auscultation bilaterally Cardio Rate: regular rate Rhythm: regular rhythm Heart sounds: S1 normal heart sound present and S2 normal heart sound present GI Inspection: Yes normal to inspection Palpation (GI): Soft to palpation and Other GI palpation findings present (nontender, no cva tenderness) Auscultation: normoactive bowel sounds Rectal Exam - Female: deferred Skin General skin exam: no rashes or lesions noted Neuro General: patient oriented x3, gait normal and no focal motor deficits Coding Level of Care Code Est Pt Level 4 (55247) Complex EM visit Add On G2211 Diagnoses Coronary artery disease, unspecified vessel or lesion type, unspecified whether angina present, unspecified whether circle or transplanted heart I25.10 Associated angina: unspecified whether angina present Coronary Disease-Associated Artery/Lesion type: unspecified vessel or lesion type [place] vs. transplanted heart: unspecified whether circle or transplanted heart Primary hypertension I10 Hypertension type: primary hypertension Anemia, unspecified type D64.9 Anemia type: unspecified type Dyspnea R06.00 Dizziness R42 Weight loss R63.4 Assessment & Plan Assessment & Plan (1) CAD (coronary artery disease): Code(s): I25.10 - Atherosclerotic heart disease of circle coronary artery without angina pectoris Category: Medical Qualifiers: Associated angina: unspecified whether angina present Coronary Disease- Associated Artery/Lesion type: unspecified vessel or lesion type [place] vs. transplanted heart: unspecified whether circle or transplanted heart Qualified Code(s): I25.10 - Atherosclerotic heart disease of circle coronary artery without angina pectoris Plan: Advised that she has to take the Plavix and follow up with Cardiology. (2) HTN (hypertension): Code(s): I10 - Essential (primary) hypertension Category: Medical Qualifiers: Hypertension type: primary hypertension Qualified Code(s): I10 - Essential (primary) hypertension Plan: Continue current regimen (3) Anemia: Code(s): D64.9 - Anemia, unspecified Category: Medical Qualifiers: Anemia type: unspecified type Qualified Code(s): D64.9 - Anemia, unspecified Plan: We will recheck labs today as we did discuss that anemia can cause dizziness. I have referred her to Heme-Onc as she does not tolerate iron supplements and due to her weight loss. She was on iron supplements up until a few weeks ago. Advised that she needs to follow up with GI as directed by 2 other providers. I did discuss with the anemia and weight loss I am concerned that there could be an underlying malignancy. She is aware of this but tells me that there is a lot going on at home but her daughter does disagree and states that there is no reason why she is not following up. (4) Dyspnea: Code(s): R06.00 - Dyspnea, unspecified Category: Medical Plan: Following pulmonology (5) Dizziness: Code(s): R42 - Dizziness and giddiness Category: Medical Plan: As above. Labs ordered (6) Weight loss: Code(s): R63.4 - Abnormal weight loss Category: Medical Plan: As above. Has short term follow up with PCP. Advised that she needs to keep her specialty appointments and go for the CT scans. Orders: Orders Comprehensive Met. Panel 12/13/24 D64.9 - Anemia, unspecified, I10 - Essential (primary) hypertension, I25.10 - Atherosclerotic heart disease of circle coronary artery without angina pectoris, R06.00 - Dyspnea, unspecified, R42 - Dizziness and giddiness TSH reflex Free T4 12/13/24 D64.9 - Anemia, unspecified, I10 - Essential (primary) hypertension, I25.10 - Atherosclerotic heart disease of circle coronary artery without angina pectoris, R06.00 - Dyspnea, unspecified, R42 - Dizziness and giddiness IRON PROFILE 12/13/24 D64.9 - Anemia, unspecified, I10 - Essential (primary) hypertension, I25.10 - Atherosclerotic heart disease of circle coronary artery without angina pectoris, R06.00 - Dyspnea, unspecified, R42 - Dizziness and giddiness Complete Blood Count Auto Diff 12/13/24 D64.9 - Anemia, unspecified, I10 - Essential (primary) hypertension, I25.10 - Atherosclerotic heart disease of circle coronary artery without angina pectoris, R06.00 - Dyspnea, unspecified, R42 - Dizziness and giddiness Referrals Hematology & Oncology Referral D64.9 - Anemia, unspecified, R63.4 - Abnormal weight loss Gastroenterology Referral D64.9 - Anemia, unspecified, R63.4 - Abnormal weight loss
[2024-12-13 14:37] VITALS: BP 130/50; PULSE 78; RESP 12; TEMP 36.5; O2SAT 92; BMI 20.7
--- OUTSIDE RECORDS SUMMARY | 2024-12-13 16:07 | XMS_ITS | Clinical Summary ---
Author Organization [facility] Address [address] [facility] [place] [address] Phone Care Team Providers Care Casting Machine Operator Name Role Phone Felicita Odonnell MD Primary Care Provider [phone] Allergies No known active allergies Medications timoloL [...] Diagnosed Date Atherosclerotic heart diseas e of [place] coronary artery without angina pectoris 10/23/2024 Bilateral carotid artery disease ([facility] V24) 0 10/23/2024 Encounters Date Type Department Care Team Description 10/24/2024 Telephone [facility] Cardiology [facility] [address] [place] [address] Uriah Castellanos MD 10/23/2024 3:00 PM EDT Office Visit [facility] [address] [place] [address] Uriah Castellanos MD Atherosclerotic heart disease 10/10/2024 Telephone [facility] [address] [place] [address] Felicita Odonnell MD 10/05/2024 Telephone [facility] [address] [place] [address] Felicita Odonnell MD from Last 3 Months Surgical History Surgery Date Site/Laterality Comments [place]IAC [place] [facility] [place] INDICATIONS:Shortness of breath. [...] 10/23/2024 3:31 PM EDT Plan of Treatment Upcoming Encounters Date Type Department Care Team (Late st Contact Info) Description 12/28/2024 1:40 PM EDT Office Visit [facility] [address] [place] [address] Megan Madsen NP [address] [place] [address] [address] [place] [phone] Health Maintenance Due Date Last Done Comments DTaP,Tdap,and Td Vaccines (1 - Tdap) 11[birth year]02/1959 Pneumococcal Vaccine: 50+ Years (1 of 1 - PCV) 1990 Zoster Vaccines (1 of 2) 1990 Depression Screening 03/28/2024 Cholesterol Screening (Lipid Panel) 10/06/2024 Falls Risk Assessment 10/06/2024 Medicare Annual Wellness Visit 10/06/2024 Osteoporosis Screening (Bone Density Screening) 10/06/2024 Social Influencers of Health Screening 10/06/2024 Hypertension/CHF/CAD Annual BMP Blood Test 10/12/2024 COVID-19 Vaccine ( season) 2024 04/15/2021, 06/02/2020, 05/12/2020 Influenza Vaccine (#1) 2024 , 03/30/2023, 02/09/2022, [...] patient's age to complete this topic Insurance [facility] [place] [id number] [employer] MEDICARE Care Teams Casting Machine Operator Relationship Specialty Start Date End Date Felicita Odonnell MD PCP - General Internal Medicine 10/05/24
== END 2024-12-13 15:19 | disposition home or self-care (01) ==
LOC: HO.HMCFM 14:17
PROVIDERS: PCP Internal Medicine; Visit Provider Physician Assistant
DX: I25.10 Atherosclerotic heart disease of native coronary artery without angina pectoris (principal); I10 Essential (primary) hypertension; D64.9 Anemia, unspecified; R06.00 Dyspnea, unspecified; R42 Dizziness and giddiness; R63.4 Abnormal weight loss

== ENCOUNTER 2024-12-13 14:16 | Outpatient (REF) | payer MEDICARE, SELFPAY ==
[2024-12-13 17:44] LABS: MANUAL DIFF FLAG NO
[2024-12-13 17:58] LABS: Hematocrit 28.3 % (37.0-47.0); Hemoglobin 8.9 g/dl (12.0-16.0); Imm Gran Abs Auto 0.03 X10*3/uL (0.00-0.03); Imm Gran Pct Auto 0.4 % (0.0-0.4); Lymphocytes Absolute Auto 1.3 X10*3/uL (1.2-4.9); Mean Corpuscular HGB Conc 31.4 g/dl (31.0-35.0); Mean Corpuscular Hemoglobin 26.1 pg (27.0-33.0); Mean Corpuscular Volume 83.0 fL (80.0-98.0); NRBC Abs Auto 0.000 X10*3/uL (0.0-0.012); NRBC Pct Auto 0.0 /100WBC (0.0-0.2); Platelet Count 380 X10*3/uL (160-400); Red Blood Count 3.41 X10*6/uL (4.20-5.50); White Blood Count 8.0 X10*3/uL (4.8-10.8)
[2024-12-13 18:35] LABS: Alanine Aminotransferase 9 U/L (0-31); Albumin Level 4.2 g/dL (3.5-5.0); Alkaline Phosphatase 80 U/L (39-117); Anion Gap 12 (12-20); Aspartate Amino Transferase 23 U/L (5-31); Blood Urea Nitrogen 31 mg/dL (9-16); Calcium 9.2 mg/dL (8.4-10.2); Carbon Dioxide 28 mmol/L (22-29); Chloride 104 mmol/L (96-108); Estimated Glomerular Filt Rate 42; Iron 43 mcg/dL (30-160); Percent Iron Saturation 13 % (15-50); Potassium 3.7 mmol/L (3.3-5.1); Sodium 140 mmol/L (135-145); Total Iron Binding Capacity 336 mcg/dL (228-428); Total Protein 7.1 g/dL (6.5-8.0); Unsaturated Iron Binding 293 ug/dL
[2024-12-13 18:47] LABS: Folate 9.7 ng/mL (> or = 4.0); Vitamin B12 1568 pg/mL (200-900)
== END 2024-12-13 14:17 | disposition home or self-care (01) ==
LOC: HO.WFDLDS 14:16
PROVIDERS: Nurse Practitioner Family; PCP Internal Medicine; Visit Provider Physician Assistant
DX: I25.10 Atherosclerotic heart disease of native coronary artery without angina pectoris (principal); R19.5 Other fecal abnormalities; R06.02 Shortness of breath; R39.11 Hesitancy of micturition; D64.9 Anemia, unspecified; I10 Essential (primary) hypertension; R06.00 Dyspnea, unspecified; R42 Dizziness and giddiness; R10.30 Lower abdominal pain, unspecified; R63.4 Abnormal weight loss
CPT/HCPCS: 36415; 80053; 82607; 82746; 83540; 84443; 85025; 99212

== ENCOUNTER 2024-12-21 13:45 | Outpatient (AMB) | payer MEDICARE, SELFPAY ==
--- OUTSIDE RECORDS SUMMARY | 2023-09-07 11:20 | XMS_ITS ---
Author Organization [facility] Address [address] [place] [phone] Care Team Providers Care Sql Report Developer Name Role Phone DARIN KAHN PA-C Primary Care Provider Derek Weir Unavailable [phone] REASON FOR VISIT UNSPECIFIED ABDOMINAL PAIN Encounters Encounter Location Date Provider Diagnosis [facility] [address] [facility] [address] [place] [phone] 09/07/2023 Derek Lee Plan Of Treatment No Information Progress Notes * SERA KRAMER GDOB:[birth year] (84 yo F)Acc No.[id number]:09/07/2023 Progress Notes Patient: SERA ANAND Provider: Kay Lee MD :1940 A ge:82 Y S ex:Female Date:09/07/2023 Address:[address] [place], [place] [phone] Pcp:DARIN KAHN PA-C Subjective: * Chief Complaints: [...] Pending * Provider: Kay Lee MD Date: 09/07/2023 Generated for Milvia sweeney/Erik/eTransmitting on: 0 12/21/2024 02:56 PM EDT
--- OUTSIDE RECORDS SUMMARY | 2024-01-06 09:00 | XMS_ITS ---
Author Organization [facility] Address [address] [place] [address] Care Team Providers Care Analytical Manager Name Role Phone DARIN KAHN PA-C Primary Care Provider Derek Weir Unavailable [phone] REASON FOR VISIT abdominal pain Encounters Encounter Location Date Provider Diagnosis [facility] [address] [place] [phone] 01/06/2024 Derek Lee Plan Of Treatment No Information Progress Notes * SERA KRAMER GDOB:[birth year] (84 yo F)Acc No.[id number]:01/06/2024 Progress Notes Patient: SERA ANAND Provider: Kay Lee MD :1940 A ge:83 Y S ex:Female Date:01/06/2024 Address:[address] [place], [place] [id number] Pcp:DARIN KAHN PA-C Subjective: * Chief Complaints: * 1 . Abdominal pain. * Medical History: Objective: * Vitals: Assessment: Plan: * Treatment: * * The named appointment provid er may or may not be the originator of this progress note, and it is not deemed complete until electronically signed by the appointment provider. Sign off status: Pending * Provider: Kay Lee MD Date: 1 Generated for Milvia ng/Fapatg/eTransmitting on: 0 12/21/2024 02:56 PM EDT
[2024-12-21 13:54] VITALS: BP 128/64; PULSE 66; O2SAT 96; BMI 20.9
--- NOTE | 2024-12-21 13:54 | A.OFFVIS_ITS ---
Vital Signs 12/21/24 13:54 Height 5 ft 3 in Weight 118 lb 2 oz BMI 20.9 BP 128/64 Blood Pressure Location Rt brachial Position Sitting Pulse 66 Pulse Source Pulse Oximeter Pulse Oximetry (%) 96 Oxygen Delivery Method Room Air Intake Visit Reasons: Continued sob/ productive cough Allergies No Known Allergies Allergy (Verified 12/21/24 13:57) HPI HPI Continued sob/ productive cough: Details: Fabio sexton pleasant 83 year old, former 20 pack year smoker, quit 30+ years ago with underlying CAD s/p coronary stenting x 2, HTN and HLD. Prior PFT revealed unremarkable findings other than isolated decrease in DLCO suggests the pulmonary edema. Since the last visit patient underwent a cardiac cath with stent placement x 2, which she described as better than previous experiences, although she experienced significant bruising and dizziness post-procedure. She reported nausea and has not resumed driving due to dizziness and fatigue. The patient declined cardiac rehabilitation due to a negative past experience in 2016, where she felt uncomfortable and was labeled as borderline obese by a jesus se. The patient has a history of pneumonia, which was treated in August, and a follow- up chest X-ray in September showed resolution of the pneumonia. She continues to experience a chronic cough and nasal congestion, with occasional productive cough, denies fevers or chest congestion. She also notes persistent nasal discharge which has been clear. The patient has been experiencing peripheral edema, which she attributes to a recent fall resulting in ankle swelling. She has been prescribed a diuretic, which she takes inconsistently, and reports improvement in swelling when she uses. The patient has not been adherent to her Plavix medication, citing dizziness as a side effect, and has been advised by her healthcare provider to resume taking it to prevent further cardiac events. REPLACED BY [facility] Medical History Allergic rhinitis HTN (hypertension) CAD (coronary artery disease) Bilateral carotid artery disease Hyperlipidemia Surgical History Stented coronary artery Hx of cardiac cath Hx of endoscopy Hx of colonoscopy Hx of eye surgery Hx of foot surgery Family History Mother CVD (cardiovascular disease) Social History Housing: House Alcohol intake: current Alcohol intake frequency: a few times a week Patient Tobacco Use Status: Former Tobacco user Years Smoked: 40 +/- e-Cigarette/Vaping Use: Never Used Second Hand Smoke Exposure: No service: No Current occupational status: retired Cognitive needs: No Hearing needs: No Vision needs: No Review of Systems Const Denies chills, Denies excessive sweating, Denies fever(s), Denies headache(s) and Denies night sweats Eyes Denies dry eyes, Denies irritation and Denies itchy eyes ENT Reports Normal hearing present, Denies headache(s), Denies nasal congestion, Denies nasal discharge, Denies post nasal drip and Denies sore throat Card Denies chest pain, Denies chest pain at rest, Denies chest pain with activity, Denies claudication, Denies orthopnea and Denies paroxysmal nocturnal dyspnea Resp Denies chest congestion, Denies excessive phlegm production, Denies pain on inspiration, Denies pain with cough, Denies stridor and Denies wheezing Musc Denies myalgias Neuro Reports Normal hearing present and Denies headache(s) Endo Denies excessive sweating Gil/Lymph Denies lymphadenopathy Aller/Immun Denies itchy eyes and Denies wheezing Physical Exam Vital Signs: Last Vital Signs Pulse 66 12/21/24 13:54 BP 128/64 12/21/24 13:54 Pulse Ox 96 12/21/24 13:54 Oxygen Delivery Method Room Air 12/21/24 13:54 BMI result Body Mass Index 20.9 Const General: cooperative, comfortable, no acute distress and alert Orientation/consciousness: patient oriented x3 Limitations: ambulation with cane (walking stick) HEENT Head: Yes normal to inspection, Yes normocephalic and Yes atraumatic Ears: hearing grossly normal bilaterally and external ears normal Eyes General: appearance normal, both eyes and all related structures Eyelids: Yes eyelids normal Sclerae: sclerae normal EOM: EOMs intact bilaterally Neck Neck: Yes normal visual inspection and Yes no lymphadenopathy Lymphatic: no lymphadenopathy noted Chest Chest palpation & inspection: normal inspection of the chest Resp Effort & Inspection: normal respiratory effort, able to speak in complete sentences, no audible wheezes, no cough, no stridor, not tachypneic, no tripod positioning and no use of accessory muscles Auscultation: clear to auscultation bilaterally Cardio Jugular venous distension: no JVD Rate: regular rate Rhythm: regular rhythm Skin Other: warm, dry General skin exam: no rashes or lesions noted Neuro General: patient oriented x3 Cranial nerves: Yes Normal hearing present Cognition (Neuro): normal cognition Psych Appearance: grossly normal and well kempt Speech and movement: Normal speech and movement present and Clear speech present Affect: normal affect Attitude: cooperative Thought process: Normal thought process present Thought content: Normal thought content present Insight: Good insight present (Psych) Judgement: Good judgement present (Psych) Assessment & Plan Assessment & Plan (1) Dyspnea: Code(s): R06.00 - Dyspnea, unspecified Category: Medical (2) Personal history of tobacco use: Code(s): Z87.891 - Personal history of nicotine dependence Category: Social Hx (3) Decreased diffusion capacity: Code(s): R94.2 - Abnormal results of pulmonary function studies Category: Medical (4) Anemia: Code(s): D64.9 - Anemia, unspecified Category: Medical Qualifiers: Anemia type: unspecified type Qualified Code(s): D64.9 - Anemia, unspecified Plan During the visit, discussed the importance of medication adherence, particularly with Plavix, to prevent cardiac complications. We reviewed the patient's respiratory symptoms and the resolution of pneumonia, emphasizing the need for ongoing monitoring. Addressed the patient's concerns about cardiac rehabilitation, explaining its potential benefits despite past experiences. CT chest 08/2024 revealed nodular configuration, malignancy can not be excluded with recommendation for follow-up chest CT in 3 months which is scheduled in December. At this time patient with significant post nasal drip likely contributing to cough, encouraged patient to restart nasal spray as she has discontinued. She continues with dyspnea despite undergoing cardiac cath. Prior PFT did not reveal any obstructive defect however noted of decreased DLCO possibly related to pulmonary edema, discussed importance of adhering to lasix regimen. She has a h/o anemia recent H/H decreased and per PCP last note is being referred to Hematology. She is aware to call if symptoms do not change or worsen. All questions were answered and patient is in agreement of plan. Will follow up to review results or chest CT or sooner if needed. Coding Level of Care Code Est Pt Level 4 (89425) Diagnoses Dyspnea R06.00 Personal history of tobacco use Z87.891 Decreased diffusion capacity R94.2 Anemia, unspecified type D64.9 Anemia type: unspecified type
--- OUTSIDE RECORDS SUMMARY | 2024-12-21 14:56 | XMS_ITS | Patient Health Record ---
Author Organization [facility] Address [address] [place] [address] Care Team Providers Care Airplane Cleaner Name Role Phone DARIN KAHN PA-C Primary Care Provider Derek Weir Unavailable [phone] Allergies No Known Allergies Reason For Referral [...] Problem Status W/U Status Risk Notes Problem 00998539 Diarrhea (R19.7) Active confirmed Problem 004028972 Irritable bowel syndrome with diarrhea (K58.0) Active confirmed Problem Irritable bowel syndrome characterized by constipation (547175767) Irritable bowel syndrome with constipation (K58.9) Active confirmed Problem 99888334 Change in bowel function (R19.4) Active confirmed Problem Abdominal pain (41175373) Abdominal cramps (R10.9) Active confirmed Problem 137477321 Abdominal pain, acute, periumbilical (R10.33) Active confirmed Encounters Encounter Location Date Provider Diagnosis [facility] [address] [place] [address] 09/24/2024 Derek Lee Plan Of Treatment Future Test Test Name Order Date COLONOSCOPY 07/31/2015 Insurance Providers Payer Name Payer Address Payer Phone Subscriber Number Group Number Insured Name Patient Relationship to Insured Coverage Start Date Coverage End Date [employer] Medicare Adv (PPO) [address] [address] [place] [address] [id number] SERA KRAMER Self - patient is the insured Medical (General) History Medical History History ICD Code Denies [place],DM,CVA,Lung disease,renal dise ase Neuropathy in feet Glaucoma [...]
--- OUTSIDE RECORDS SUMMARY | 2024-12-21 14:56 | XMS_ITS | Clinical Summary ---
Author Organization [facility] [employer] [facility] Address [address] [place] [address] Phone Care Team Providers Care Leather Roller Name Role Phone Felicita Odonnell MD Primary Care Provider [phone] Allergies No known active allergies Medications timoloL [...] Diagnosed Date Atherosclerotic heart diseas e of [place] coronary artery without angina pectoris 10/23/2024 Bilateral carotid artery disease ([facility] V24) 0 10/23/2024 Encounters Date Type Department Care Team Description 10/24/2024 Telephone [facility] Cardiology [facility] [address] [place] [address] Uriah Castellanos MD 10/23/2024 3:00 PM EDT [facility] [address] [place] [address] Uriah Castellanos MD Atherosclerotic heart disease 10/10/[address] [facility] [address] [place] [address] Felicita Odonnell MD 10/05/2024 Telephone [facility] [address] [place] [address] Felicita Odonnell MD from Last 3 Months Surgical History Surgery Date Site/Laterality Comments CARDIAC CATHETERIZATION DOEN ON 07/12/2024 AT [facility] [address] [place] [address] INDICATIONS:Shortness of breath. [...] Description 12/28/2024 1:40 PM EDT Office Visit [facility] [address] [place] [address] Megan Madsen NP [address] [place] [address] [address] [place] [phone] Health Maintenance Due Date Last Done Comments [...] patient's age to complete this topic Insurance [place] [phone] [employer] MEDICARE Care Teams Leather Roller Relationship Specialty Start Date End Date Felicita Odonnell MD PCP - General Internal Medicine 10/05/24
== END 2024-12-21 14:42 | disposition home or self-care (01) ==
LOC: HO.HPSW 13:46
PROVIDERS: PCP Internal Medicine; Visit Provider Nurse Practitioner Family
DX: R06.00 Dyspnea, unspecified (principal); Z87.891 Personal history of nicotine dependence; R94.2 Abnormal results of pulmonary function studies; D64.9 Anemia, unspecified
CPT/HCPCS: 99214

== ENCOUNTER → 2024-12-21 13:45 | Outpatient (BNVA) | payer MEDICARE, SELFPAY | PROVIDERS: PCP Internal Medicine; Visit Provider Nurse Practitioner Family | DX: R06.00 Dyspnea, unspecified (principal); Z87.891 Personal history of nicotine dependence; R94.2 Abnormal results of pulmonary function studies; D64.9 Anemia, unspecified | CPT/HCPCS: 99212 ==

== ENCOUNTER 2024-12-24 13:56 | Outpatient (AMB) | payer MEDICARE, SELFPAY ==
--- OUTSIDE RECORDS SUMMARY | 2023-09-07 11:20 | XMS_ITS ---
Author Organization [facility] Address [address] [place] [phone] Care Team Providers Care Community Liaison Officer Name Role Phone DARIN KAHN PA-C Primary Care Provider Derek Weir Unavailable [phone] REASON FOR VISIT UNSPECIFIED ABDOMINAL PAIN Encounters Encounter Location Date Provider Diagnosis [facility] [address] [facility] [address] [place] [phone] 09/07/2023 Derek Lee Plan Of Treatment No Information Progress Notes * SERA KRAMER GDOB:[birth year] (84 yo F)Acc No.[id number]:09/07/2023 Progress Notes Patient: SERA ANAND Provider: Kay Lee MD :1940 A ge:82 Y S ex:Female Date:09/07/2023 Address:[address] [place], [place] [phone] Pcp:DARIN KAHN PA-C Subjective: * Chief Complaints: * 1 . UNSPECIFIED ABDOMINAL PAIN. * Medical History: Objective: * Vitals: Assessment: Plan: * Treatment: * * The named appointment provid er may or may not be the originator of this progress note, and it is not deemed complete until electronically signed by the appointment provider. Sign off status: Pending * Provider: Kay Lee MD Date: 0 09/07/2023 Generated for Milvia sweeney/Fapatg/eTransmitting on: 0 12/24/2024 03:43 PM EDT
--- OUTSIDE RECORDS SUMMARY | 2024-01-06 09:00 | XMS_ITS ---
Author Organization [facility] Address [address] [place] [phone] Care Team Providers Care Director Home Health Name Role Phone DARIN KAHN PA-C Primary Care Provider Derek Wier Unavailable [phone] REASON FOR VISIT abdominal pain Encounters Encounter Location Date Provider Diagnosis [facility] [address] [place] [phone] 01/06/2024 Derek Lee Plan Of Treatment No Information Progress Notes * SERA KRAMER GDOB:[birth year] (84 yo F)Acc No.[id number]:01/06/2024 Progress Notes Patient: SERA ANAND Provider: Kay Lee MD :1940 A ge:83 Y S ex:Female Date:01/06/2024 Address:[address] [place], [place] [id number] Pcp:DARIN KAHN PA-C Subjective: * Chief Complaints: [...] Kay Lee MD Date: 1 Generated for Chinedui ng/Fapatg/eTransmitting on: 0 12/24/2024 03:43 PM EDT
--- NOTE | 2024-12-24 14:06 | MHC.PC.OV ---
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 She did not tolerate imdur in the past. Recent cardiac catheterization with PCI 2 stents- RCA and OM. She has follow up with Dr Vyas on Tuesday. Still has shortness of breath. She has a history of PCI to the circumflex and RCA in 2016. She has also seen Dr Church and had testing for right common iliac artery stenosis and for ?of mesenteric ischemia. GI: Following with GI at [facility]. For the past year was experiencing constipation and overflow diarrhea. . She has been prescribed metamucil, miralax, bentyl, lactulose, linzess in the past. CT scan of the abdomen and pelvis without any acute pathology. It did show some non small pulmonary nodules and Bulky calcific plaque of the right common iliac artery which results in at least some degree of stenosis. Would correlate for symptoms of claudication. Patient denies increased pain with eating. She has not started the lactulose and is not in receipt of the linzess that I ordered her. She continues to suffer from the same symptoms. She is more anemic than on last check. She was able to get a GI visit slightly sooner-in November GI: Dr Britton Vascular: Dr Church [facility] Ophtho: Dr Johnson ROS see HPI PHYSICAL EXAM: GENERAL: Alert and oriented x 3. NAD EYES: EOMI. Anicteric. HENT: Moist mucous membranes. No scleral icterus. No cervical lymphadenopathy. LUNGS: Clear to auscultation bilaterally. CARDIOVASCULAR: Regular rate and rhythm. +murmur ABDOMEN: Soft, non-tender +bs EXTREMITIES: No edema. Non-tender. SKIN: No rashes or lesions. Warm. NEUROLOGIC: No focal neurological deficits. CN II-XII grossly intact PSYCHIATRIC: Cooperative. Appropriate mood and affect [facility] Medical History Allergic rhinitis HTN (hypertension) CAD (coronary artery disease) Bilateral carotid artery disease Hyperlipidemia Surgical History Stented coronary artery Hx of cardiac cath Hx of endoscopy Hx of colonoscopy Hx of eye surgery Hx of foot surgery Family History Mother CVD (cardiovascular disease) Social History Housing: House Alcohol intake: current Alcohol intake frequency: a few times a week Patient Tobacco Use Status: Former Tobacco user Years Smoked: 40 +/- e-Cigarette/Vaping Use: Never Used Second Hand Smoke Exposure: No service: No Current occupational status: retired Cognitive needs: No Hearing needs: No Vision needs: No Questionnaire Thrive Questionnaire Date Thrive assessed: 12/13/24 I am a: Patient What is your living situation today?: I have a steady place to live Within the past 12 months, did the food you bought not last and you didn't have the money to get more?: Never true Within the past 12 months, did you worry whether your food would run out before you got money to buy more?: Never true Do you have trouble paying for medicines?: No Do you have trouble getting transportation to medical appointments?: No Do you have trouble paying your heating and electricity bill?: No Do you have trouble taking care of your child, family member or friend?: No Do you have trouble with day-to-day activities such as bathing, preparing meals, shopping, managing finances, etc.?: Yes Are you currently unemployed and looking for a job?: No Are you interested in more education?: No Please select the resources that you would like help with: None Currently or been in a relationship where the following occur: No concerns reported THRIVE Score: 0 LAURIE-7 AMB Questionnaire LAURIE-7 Date LAURIE - 7 assessed: 05/12/25 Source: Developed by Drs. Jun Bo, Kim Coello, Zach Corral and colleagues, with an educational jameel from [employer]. Physical exam (Primary Care) Vital Signs: Last Vital Signs Pulse 51 12/24/24 14:09 Resp 14 12/24/24 14:09 BP 128/56 L 12/24/24 14:09 BMI result Body Mass Index 20.6 Tobacco/Smoking Status: Tobacco use Status Tobacco use date assessed 12/24/24 12/24/24 14:12 Patient Tobacco Use Status Former Tobacco user 12/24/24 14:08 e-Cigarette/Vaping Use Never Used 12/24/24 14:08 Thrive Assessment: Date of Thrive Assessment Date Thrive assessed 12/13/24 12/24/24 14:08 Currently or been in a relationship where the following occur: No concerns reported Coding Level of Care Code Est Pt Level 4 (65600) Diagnoses Shortness of breath R06.02 Bilateral carotid artery disease, unspecified type I77.9 Carotid artery disease type: unspecified Iliac artery occlusion I74.5 Coronary artery disease, unspecified vessel or lesion type, unspecified whether angina present, unspecified whether [place] or transplanted heart I25.10 Coronary Disease-Associated Artery/Lesion type: unspecified vessel or lesion type [place] vs. transplanted heart: unspecified whether [place] or transplanted heart Associated angina: unspecified whether angina present Anemia, unspecified type D64.9 Anemia type: unspecified type Assessment & Plan Assessment & Plan (1) Shortness of breath: Code(s): R06.02 - Shortness of breath Category: Medical (2) Bilateral carotid artery disease: Code(s): I77.9 - Disorder of arteries and arterioles, unspecified Category: Medical Qualifiers: Carotid artery disease type: unspecified Qualified Code(s): I77.9 - Disorder of arteries and arterioles, unspecified (3) Iliac artery occlusion: Code(s): I74.5 - Embolism and thrombosis of iliac artery Category: Medical (4) CAD (coronary artery disease): Code(s): I25.10 - Atherosclerotic heart disease of [place] coronary artery without angina pectoris Category: Medical Qualifiers: Coronary Disease-Associated Artery/Lesion type: unspecified vessel or lesion type [place] vs. transplanted heart: unspecified whether [place] or transplanted heart Associated angina: unspecified whether angina present Qualified Code(s): I25.10 - Atherosclerotic heart disease of [place] coronary artery without angina pectoris (5) Anemia: Code(s): D64.9 - Anemia, unspecified Category: Medical Qualifiers: Anemia type: unspecified type Qualified Code(s): D64.9 - Anemia, unspecified Plan CAD: Continues to have shortness of breath following PCI. Encouraged increased physical activity. Has cardiology follow up Anemia-has been stable. She is following with GI Blood pressure is adequately controlled. Low salt diet Orders: Orders Urine Culture 12/24/24 I10 - Essential (primary) hypertension, I25.10 - Atherosclerotic heart disease of [place] coronary artery without angina pectoris, R53.83 - Other fatigue UA and rflx microscopic 12/24/24 I10 - Essential (primary) hypertension, I25.10 - Atherosclerotic heart disease of [place] coronary artery without angina pectoris, R53.83 - Other fatigue Complete Blood Count Auto Diff 12/24/24 D64.9 - Anemia, unspecified, I10 - Essential (primary) hypertension, I25.10 - Atherosclerotic heart disease of [place] coronary artery without angina pectoris, K59.00 - Constipation, unspecified IRON PROFILE 12/24/24 D64.9 - Anemia, unspecified, I10 - Essential (primary) hypertension, I25.10 - Atherosclerotic heart disease of [place] coronary artery without angina pectoris, K59.00 - Constipation, unspecified Comprehensive Met. Panel 12/24/24 D64.9 - Anemia, unspecified, I10 - Essential (primary) hypertension, I25.10 - Atherosclerotic heart disease of [place] coronary artery without angina pectoris, K59.00 - Constipation, unspecified
[2024-12-24 14:09] VITALS: BP 128/56; PULSE 51; RESP 14; BMI 20.6
--- OUTSIDE RECORDS SUMMARY | 2024-12-24 15:43 | XMS_ITS | Clinical Summary ---
Author Organization [facility] [employer] [facility] Address [address] [place] [address] Phone Care Team Providers Care Esthetician/Owner Name Role Phone Felicita Odonnell MD Primary Care Provider [phone] Allergies No known active allergies Medications timoloL [...] Diagnosed Date Atherosclerotic heart diseas e of [place] coronary artery without angina pectoris 10/23/2024 Bilateral carotid artery disease ([facility] V24) 0 10/23/2024 Encounters Date Type Department Care Team Description 10/24/2024 Telephone [facility] Cardiology [facility] [address] [place] [address] Uriah Castellanos MD 10/23/2024 3:00 PM EDT Office Visit [facility] [address] [place] [address] Uriah Castellanos MD Atherosclerotic heart disease 10/10/2024 Telephone [facility] [address] [place] [address] Felicita Odonnell MD 10/05/2024 Telephone [facility] Gen [facility] [address] [place] [address] Felicita Odonnell MD from Last 3 Months Surgical History Surgery Date Site/Laterality Comments CARDIAC CATHETERIZATION DOEN ON 07/12/2024 AT [facility] [address] INDICATIONS:Shortness of breath. [...] Description 12/28/2024 1:40 PM EDT Office Visit [facility]iology Associates [facility] [address] [place] [address] Megan Madsen NP [address] [place] [address] [address] [place] [phone] Health Maintenance Due Date Last Done Comments [...] patient's age to complete this topic Insurance [facility] [place] [id number] [place] [address] Care Teams Esthetician/Owner Relationship Specialty Start Date End Date Felicita Odonnell MD PCP - General Internal Medicine 10/05/24
--- OUTSIDE RECORDS SUMMARY | 2024-12-24 15:43 | XMS_ITS | Patient Health Record ---
Author Organization [facility] Address [address] [place] [address] Care Team Providers Care Slide Developer Name Role Phone DARIN KAHN PA-C Primary Care Provider Derek Weir Unavailable [phone] Allergies No Known Allergies Reason For Referral [...] Problem Status W/U Status Risk Notes Problem 55249676 Diarrhea (R19.7) Active confirmed Problem 120851596 Irritable bowel syndrome with diarrhea (K58.0) Active confirmed Problem Irritable bowel syndrome characterized by constipation (782123252) Irritable bowel syndrome with constipation (K58.9) Active confirmed Problem 89881795 Change in bowel function (R19.4) Active confirmed Problem Abdominal pain (25379205) Abdominal cramps (R10.9) Active confirmed Problem 862545633 Abdominal pain, acute, periumbilical (R10.33) Active confirmed Encounters Encounter Location Date Provider Diagnosis [facility] [address] [place] [address] 09/24/2024 Derek Lee Plan Of Treatment Future Test Test Name Order Date COLONOSCOPY 07/31/2015 Insurance Providers Payer Name Payer Address Payer Phone Subscriber Number Group Number Insured Name Patient Relationship to Insured Coverage Start Date Coverage End Date [employer] Medicare Adv (PPO) [address] [address] [place] [address] [id number] SERA KRAMER Self - patient is the insured Medical (General) History Medical History History ICD Code Denies [place],DM,CVA,Lung disease,renal dise ase Neuropathy in feet Glaucoma [...]
== END 2024-12-24 14:32 | disposition home or self-care (01) ==
LOC: HO.HMCFM 13:57
PROVIDERS: PCP Internal Medicine; Visit Provider Internal Medicine
DX: R06.02 Shortness of breath (principal); I77.9 Disorder of arteries and arterioles, unspecified; I74.5 Embolism and thrombosis of iliac artery; I25.10 Atherosclerotic heart disease of native coronary artery without angina pectoris; D64.9 Anemia, unspecified

== ENCOUNTER → 2024-12-24 13:56 | Outpatient (BNVA) | payer MEDICARE, SELFPAY | PROVIDERS: PCP Internal Medicine; Visit Provider Internal Medicine | DX: R06.02 Shortness of breath (principal); I77.9 Disorder of arteries and arterioles, unspecified; I74.5 Embolism and thrombosis of iliac artery; I25.10 Atherosclerotic heart disease of native coronary artery without angina pectoris; D64.9 Anemia, unspecified | CPT/HCPCS: 99212 ==

== ENCOUNTER 2025-01-11 12:34 | Outpatient (REF) | payer MEDICARE, SELFPAY ==
--- OUTSIDE RECORDS SUMMARY | 2023-09-07 11:20 | XMS_ITS ---
Author Organization [facility] Address [address] [place] [phone] Care Team Providers Care Vendor Relationship Manager Name Role Phone DARIN KAHN PA-C Primary Care Provider Derek Weir Unavailable [phone] REASON FOR VISIT UNSPECIFIED ABDOMINAL PAIN Encounters Encounter Location Date Provider Diagnosis [facility] [address] [facility] [address] [place] [phone] 09/07/2023 Derek Lee Plan Of Treatment No Information Progress Notes * SERA KRAMER GDOB:[birth year] (84 yo F)Acc No.[id number]:09/07/2023 Progress Notes Patient: SERA ANAND Provider: Kay Lee MD :1940 A ge:82 Y S ex:Female Date:09/07/2023 Address:[address] [place], [place] [phone] Pcp:DARIN KAHN PA-C Subjective: * Chief Complaints: * 1 . UNSPECIFIED ABDOMINAL PAIN. * Medical History: Objective: * Vitals: Assessment: Plan: * Treatment: * * The named appointment provid er may or may not be the originator of this progress note, and it is not deemed complete until electronically signed by the appointment provider. Sign off status: Pending * Provider: Kay eLe MD Date: 0 09/07/2023 Generated for Milvia sweeney/Erik/eTransmitting on: 1 02:59 PM EDT
--- OUTSIDE RECORDS SUMMARY | 2024-01-06 09:00 | XMS_ITS ---
Author Organization [facility] Address [address] [place] [address] Care Team Providers Care Editor Index Name Role Phone DARIN KAHN PA-C Primary Care Provider Derek Weir Unavailable [phone] REASON FOR VISIT abdominal pain Encounters Encounter Location Date Provider Diagnosis [facility] [address] [place] [phone] 01/06/2024 Derek Lee Plan Of Treatment No Information Progress Notes * SERA KRAMER GDOB:[birth year] (84 yo F)Acc No.[id number]:01/06/2024 Progress Notes Patient: SERA ANAND Provider: Kay Lee MD :1940 A ge:83 Y S ex:Female Date:01/06/2024 Address:[address] [place], [place] [id number] Pcp:DARIN KAHN PA-C Subjective: * Chief Complaints: [...] Kay Lee MD Date: Generated for Milvia sweeney/Fapatg/eTransmitting on: 02:59 PM EDT
--- NOTE | ~2025-01-11 | CT_ITS ---
EXAMINATION: CT CHEST WITHOUT CONTRAST CLINICAL INFORMATION: R 91.1. Solitary pulmonary nodule. COMPARISON: September 03, 2024 TECHNIQUE: Multidetector volumetric CT imaging of the chest was done. Axial MIP volume rendering provided. Sagittal and coronal reformatted images were obtained. This CT examination was performed using dose optimization techniques as appropriate, variously including the following: *Automated exposure control *Adjustment of mA and/or kV according to patient size (this includes techniques or standardized protocols for targeted exams where dose is matched to indication/reason for exam; i.e. extremities or head) *Use of iterative reconstruction technique. DLP: 89.0 mGy centimeter. FINDINGS: SILVERWARE BUFFER: Hyperinflated lungs. Scoliosis, thoracolumbar spine. Cardiomediastinal silhouette size is normal. Patient's large body habitus. Upper extremities at both sides of the head. LUNGS: Bilateral, multiple, randomly distributed, round and less than 4 mm noncalcified pulmonary nodules. Tree in bud pattern right lung involving mostly the right upper lung lobe. Cluster of groundglass nodule in the right lung apex is no longer present. No gross bronchiectasis. No gross honeycombing. Subtle pulmonary mosaic pattern. Hyperinflated lungs. MEDIASTINUM: No gross mediastinal lymphadenopathy. Calcified plaques in the thoracic aortic arch wall descending thoracic and its main branches. No aneurysm, thoracic aorta. Heart is small. Calcified plaque in the mitral valve. No pericardial effusion. No pneumomediastinum. No hemopericardium. Thyroid gland is not enlarged. CORONARY ARTERY CALCIFICATION: Calcified plaques. PLEURA: No pleural effusion. No pneumothorax. No calcified pleural plaques. AXILLA: No specific prominent axillary lymph nodes. UPPER ABDOMEN: Moderate to large volume hiatal hernia. Soft tissue fullness without nodular lesions in the adrenal glands. Calcified plaques in the abdominal aorta its main branches and the splenic artery. OSSEOUS STRUCTURES: S-shaped curvature thoracolumbar spine. Multilevel spondylosis without acute fracture or listhesis. No acute fracture in the sternum. No gross acute rib fracture. Degenerative changes in the shoulders. CT/CT chest wo IV con IMPRESSION: Multiple less than 4 mm solid pulmonary nodules. Recommend a 6-12 months follow-up. Concerning acute airspace disease right lung. Coronary artery disease and atherosclerosis disease. Calcified mitral valve. Hiatal hernia. Fleischner guidelines were followed. Electronically signed by: Rodolfo Yusuf MD 01/11/2025 01:39 PM EDT RP
--- OUTSIDE RECORDS SUMMARY | 2025-01-11 14:59 | XMS_ITS | Patient Health Record ---
Author Organization [facility] Address [address] [place] [id number] Care Team Providers Care Beekeeper Farmer Name Role Phone DARIN KAHN PA-C Primary Care Provider Jun Weir Unavailable [phone] Allergies No Known Allergies Reason For Referral No Information Medications Medication SIG (Take, Route, Frequency, Duration) Notes Start Date End Date Status Dicyclomine HCl 10 MG 1 or 2 capsules Or ally Use every 6 hours as needed for abdominal cramps/discomfort; Duration: 30 day(s) 05/31/2023 Active Dicyclomine HCl 10 MG 1 or 2 capsules Or ally Every 6 hours to relieve any abdominal cramps or dicomfort; Duration: 90 days 07/07/2023 Active Aleve 220 MG 1 tablet Orally QD Active Allergy Active amLODIPine Besylate 5 MG Oral; Duration: 90 Active Ezetimibe 10 MG Oral; Duration: 90 Active Omeprazole 20 MG 1 capsule Orally Onc [...] Meloxicam 15 MG TAKE 1 TABLET BY EVERY DAY Oral; Duration: 30 Active Timolol Hemihydrate 0.5 % 1 drop into af fected eye Ophthalmic Once a day Active Immunizations Vaccine Route Administration Date Status Comme nts Influenza Unknown 03/28/2015 Administered Problems Problem Type SNOMED Code ICD Code Onset Dates Problem Status W/U Status Risk Notes Problem Diarrhea (09728950) Diarrhea (R19.7) Active confirmed Problem Irritable bowel syndrome with diarrhea (824703088) Irritable bowel syndrome with diarrhea (K58.0) Active confirmed Problem Irritable bowel syndrome characterized by constipation (064081587) Irritable bowel syndrome with constipation (K58.9) Active confirmed Problem Altered bowel function (96870842) Change in bowel function (R19.4) Active confirmed Problem Abdominal pain (76007662) Abdominal cramps (R10.9) Active confirmed Problem Periumbilical pain (314512348) Abdominal pain, acute, periumbilical (R10.33) Active confirmed Encounters Encounter Location Date Provider Diagnosis [facility] [address] [place] [address] 09/24/2024 Jun Lee Plan Of Treatment Future Test Test Name Order Date COLONOSCOPY 07/31/2015 Insurance Providers Payer Name Payer Address Payer Phone Subscriber Number Group Number Insured Name Patient Relationship to Insured Coverage Start Date Coverage End Date [employer] Medicare Adv (PPO) [address] [address] [place] [address] [id number] SERA KRAMER Self - patient is the insured Medical (General) History Medical History History ICD Code Denies PA,DM,CVA,Lung disease,renal dise ase Neuropathy in feet Glaucoma Carotid artery disease--followed by Dr. Quan Anxiety Hyperlipidemia Negative screening colonosco py in February of [address] Jimenez, other than diverticulosis GERD--Negative upper endosco py in February [address] Jimenez, other than a described large hiatal hernia Negative colonoscopy with dc in 07/2015. Biopsies revealed some nonspecific inflammation [...]
--- OUTSIDE RECORDS SUMMARY | 2025-01-11 14:59 | XMS_ITS | Clinical Summary ---
Author Organization [facility] [employer] [facility] Address [address] [place] [address] Phone Care Team Providers Care Front Line Supervisor Name Role Phone Felicita Odonnell MD Primary Care Provider [phone] Allergies No known active allergies Medications timoloL [...] mouth 1 (one) time each day. Active clopidogreL (PLAVIX) 75 mg tablet Take 1 tablet (75 mg total) by mouth 1 (one) time each day. Active Active Problems Problem Noted Date Diagnosed Date Atherosclerotic heart diseas e of [place] coronary artery without angina pectoris 10/23/2024 Assessment & Plan (12/31/2024 10:43 AM EDT): Patient has history of multivessel coronary artery disease with multivessel angioplasty in the past. Recent coronary angiogram as outlined in detail above with recent PCI and placement of drug-eluting stents to the proximal LAD and mid RCA lesions. She is on dual antiplatelet therapy with aspirin and Plavix. Unfortunately she continues to complain of exertional shortness of breath and reports no improvement since coronary angiogram. She does follow with a timber appraiser. Of note she has chronic anemia and is not taking her iron supplementation. She does have an appointment with hematology in the near future as well as gastroenterology. We discussed that since her symptoms did not improve with her recent angiogram that likely means that this shortness of breath was not being caused by the coronary artery disease. Nonetheless we will update an echocardiogram and have strongly advised that she restart her iron supplementation and keep her upcoming appointments with hematology and gastroenterology. She also follows with the timber appraiser who recently completed pulmonary function testing and it was not believed that her shortness of breath was secondary to pulmonary disease. Sinew with cardioprotective medical therapy with aspirin, Plavix, beta-fiona and atorvastatin. I have reviewed with the patient the importance of a heart healthy lifestyle which includes eating a low-fat low-salt diet, getting regular exercise, maintaining a healthy weight, not smoking, and following up with routine medical care. Bilateral carotid artery disease (CMS/HCC V24) 0 10/23/2024 Assessment & Plan (12/31/2024 10:43 AM EDT): Continues to follow with vascular surgery. Continue with aspirin, Plavix and statin as prescribed. Encounters Date Type Department Care Team Description 12/28/2024 1:40 PM EDT Office Visit [facility] [address] [place] [address] Megan Madsen NP Atherosclerosis of [place] coronary artery of [place] heart without angina pectoris (Primary Dx); Bilateral carotid artery disease, unspecified type ([facility] V24) 10/24/2024 Telephone [facility]iology [facility] [address] [place] [address] Uriah Castellanos MD 10/23/2024 3:00 PM EDT Office Visit [facility] Cardiology [facility] [address] [place] [address] Uriah Castellanos MD Atherosclerotic heart disease from Last 3 Months Surgical History Surgery Date Site/Laterality Comments CARDIAC CATHETERIZATION DOEN ON 07/12/2024 AT [facility] [address] [place] INDICATIONS:Shortness of breath. COLONOSCOPY EYE SURGERY FOOT SURGERY CARDIAC CATH DONE ON 11/30/2024 AT [facility] INDICATIONS:Shortness of breath w/exertion. Medical History Medical History Date Comments Hypertension Anxiety Hyperlipidemia Allergic rhinitis Family History Medical History Relation Name Comments CVD Mother Relation Name Status Comments Mother Social History Tobacco Use Types Packs/Day Years Used Date Smoking Tobacco: Former Cigarettes Smokeless Tobacco: Never Comments:1 ppd/ quit 31 year s Alcohol Use Standard Drinks/Week Comments Never 0 (1 standard drink = 0.6 oz pur e alcohol) Comments Unknown Sex and Gender Information Value Date Recorded Sex Assigned at Not on file Legal Sex Female 2:17 PM EDT Gender Identity Not on file Sexual Orientation Not on file Obstetrics History Last Filed Vital Signs Vital Sign Reading Time Taken Comments Blood Pressure 136/78 12/28/2024 1:37 PM EDT Pulse 61 12/28/2024 1:37 PM EDT Temperature - - Respiratory Rate - - Oxygen Saturation 99% 12/28/2024 1:37 PM EDT Inhaled Oxygen Concentration - - Weight 54.3 kg (119 lb 12.8 oz) 12/28/2024 1:37 PM EDT Height 160 cm (5' 3 ) 12/28/2024 1:37 PM EDT Body Mass Index 21.22 12/28/2024 1:37 PM EDT Plan of Treatment Upcoming Encounters Date Type Department Care Team (Late st Contact Info) Description 03/14/2025 11:00 AM EST Ancillary Procedure [facility] [address] [place] [id number] 04/23/2025 1:30 PM EST Office Visit [facility] [address] [place] [address] Uriah Castellanos MD [address] [place] [address] [address] [place] [address] Health Maintenance Due Date Last Done Comments [...] on patient's age to complete this topic Procedures Procedure Name Priority Date/Time Associated Diagnosis Comments ECG 12-LEAD Routine 12/31/2024 10:44 AM EDT Bilateral carotid artery disease, unspecified type (CMS/[facility] V24) Atherosclerosis of [place] coronary artery of [place] heart without angina pectoris from Last 3 Months Results * ECG 12 lead (12/31/2024 10:44 AM EDT) 12/28/2024 1:51 PM EDT 12/31/2024 9:35 AM EDT us Megan Madsen CASH SALES AUDIT CLERK ECG ORDERABLES Final Result GEMUSE from Last [address] [place] [phone] [employer] MEDICARE Care Teams Front Line Supervisor Relationship Specialty Start Date End Date Felicita Odonnell MD [address] [place] [phone] PCP - General Internal Medicine 01/04/25
== END 2025-01-11 12:35 | disposition home or self-care (01) ==
LOC: HO.CT 12:34
PROVIDERS: PCP Internal Medicine; Visit Provider Nurse Practitioner Family
DX: R91.1 Solitary pulmonary nodule (principal)
CPT/HCPCS: 71250

== ENCOUNTER → 2025-01-11 12:36 | Outpatient (BNV) | payer MEDICARE, SELFPAY | PROVIDERS: PCP Internal Medicine; Visit Provider Radiology Diagnostic Radiology | DX: R91.8 Other nonspecific abnormal finding of lung field (principal); I34.81 Nonrheumatic mitral (valve) annulus calcification; I25.10 Atherosclerotic heart disease of native coronary artery without angina pectoris; K44.9 Diaphragmatic hernia without obstruction or gangrene | CPT/HCPCS: 71250 ==

== ENCOUNTER 2025-01-18 14:29 | Outpatient (REF) | payer MEDICARE, SELFPAY | END 2025-01-18 14:30 | disposition home or self-care (01) | LOC: HO.WFDLDS 14:29 | PROVIDERS: PCP Internal Medicine; Visit Provider Nurse Practitioner Family | DX: Z13.89 Encounter for screening for other disorder (principal) | CPT/HCPCS: 99212 ==

== ENCOUNTER 2025-01-18 14:29 | Outpatient (AMB) | payer MEDICARE, SELFPAY ==
--- OUTSIDE RECORDS SUMMARY | 2023-09-07 11:20 | XMS_ITS ---
Author Organization [facility] Address [address] [place] [phone] Care Team Providers Care Arborer Name Role Phone DARIN KAHN PA-C Primary Care Provider Derek Weir Unavailable [phone] REASON FOR VISIT UNSPECIFIED ABDOMINAL PAIN Encounters Encounter Location Date Provider Diagnosis [facility] [address] [facility] [address] [place] [phone] 09/07/2023 Derek Lee Plan Of Treatment No Information Progress Notes * SERA KRAMER GDOB:[birth year] (84 yo F)Acc No.[id number]:09/07/2023 Progress Notes Patient: SERA ANAND Provider: Kay Lee MD :1940 A ge:82 Y S ex:Female Date:09/07/2023 Address:[address] [place], [place] [phone] Pcp:DARIN KAHN PA-C Subjective: * Chief Complaints: [...] 09/07/2023 Generated for Milvia sweeney/Caroleg/eTransmitting on: 1 04:22 PM EDT
--- OUTSIDE RECORDS SUMMARY | 2024-01-06 09:00 | XMS_ITS ---
Author Organization [facility] Address [address] [place] [phone] Care Team Providers Care Geodetic Engineer Name Role Phone DARIN KAHN PA-C Primary Care Provider Derek Weir Unavailable [phone] REASON FOR VISIT abdominal pain Encounters Encounter Location Date Provider Diagnosis [facility] [address] [place] [phone] 01/06/2024 Derek Lee Plan Of Treatment No Information Progress Notes * SERA KRAMER GDOB:[birth year] (84 yo F)Acc No.[id number]:01/06/2024 Progress Notes Patient: SERA ANAND Provider: Kay Lee MD :1940 A ge:83 Y S ex:Female Date:01/06/2024 Address:[address] [place], [place] [id number] Pcp:DARIN KAHN PA-C Subjective: * Chief Complaints: [...] MD Date: Generated for Milvia ng/Fapatg/eTransmitting on: 04:22 PM EDT
[2025-01-18 14:32] VITALS: BP 158/62; PULSE 67; O2SAT 98; BMI 21.5
--- NOTE | 2025-01-18 14:32 | A.OFFVIS_ITS ---
Vital Signs 01/18/25 14:32 Height 5 ft 3 in Weight 121 lb 8 oz BMI 21.5 BP 158/62 H Blood Pressure Location Lt brachial Position Sitting Pulse 67 Pulse Source Pulse Oximeter Pulse Oximetry (%) 98 Oxygen Delivery Method Room Air Intake Visit Reasons: Continued sob/ productive cough Allergies No Known Allergies Allergy (Verified 01/18/25 14:36) HPI HPI Continued sob/ productive cough: Details: Fabio sexton pleasant 83 year old, former 20 pack year smoker, quit 30+ years ago with underlying CAD s/p coronary stenting x 2, HTN and HLD. Prior PFT revealed unremarkable findings other than isolated decrease in DLCO suggests the pulmonary edema. Since the last visit patient underwent a cardiac cath with stent placement x 2, which she described as better than previous experiences, although she experienced significant bruising and dizziness post-procedure. She reported nausea and has not resumed driving due to dizziness and fatigue. The patient declined cardiac rehabilitation due to a negative past experience in 2016, where she felt uncomfortable and was labeled as borderline obese by britney carpenter. The patient has a history of pneumonia, which was treated in August, and a follow- up chest X-ray in September showed resolution of the pneumonia. She continues to experience a chronic cough and nasal congestion, with occasional productive cough, denies fevers or chest congestion. She also notes persistent nasal discharge which has been clear. The patient has been experiencing peripheral edema, which she attributes to a recent fall resulting in ankle swelling. She has been prescribed a diuretic, which she takes inconsistently, and reports improvement in swelling when she uses. The patient has not been adherent to her Plavix medication, citing dizziness as a side effect, and has been advised by her healthcare provider to resume taking it to prevent further cardiac events. stents placed no change in dyspnea- on last day doxycycline improvements in cough no longer green mucus has upcoming echo march 14 cbc and no orthopnea- dyspn with exertion encouraged restartinfg hctz pt did sta te she has missed a few doses follow up end of february [facility] Medical History Allergic rhinitis HTN (hypertension) CAD (coronary artery disease) Bilateral carotid artery disease Hyperlipidemia Surgical History Stented coronary artery Hx of cardiac cath Hx of endoscopy Hx of colonoscopy Hx of eye surgery Hx of foot surgery Family History Mother CVD (cardiovascular disease) Social History Housing: House Alcohol intake: current Alcohol intake frequency: a few times a week Patient Tobacco Use Status: Former Tobacco user Years Smoked: 40 +/- e-Cigarette/Vaping Use: Never Used Second Hand Smoke Exposure: No service: No Current occupational status: retired Cognitive needs: No Hearing needs: No Vision needs: No Physical Exam Vital Signs: Last Vital Signs Pulse 67 01/18/25 14:32 BP 158/62 H 01/18/25 14:32 Pulse Ox 98 01/18/25 14:32 Oxygen Delivery Method Room Air 01/18/25 14:32 BMI result Body Mass Index 21.5 Assessment & Plan Assessment & Plan (1) Dyspnea: Code(s): R06.00 - Dyspnea, unspecified Category: Medical (2) Personal history of tobacco use: Code(s): Z87.891 - Personal history of nicotine dependence Category: Social Hx (3) Decreased diffusion capacity: Code(s): R94.2 - Abnormal results of pulmonary function studies Category: Medical (4) Anemia: Code(s): D64.9 - Anemia, unspecified Category: Medical Qualifiers: Anemia type: unspecified type Qualified Code(s): D64.9 - Anemia, unspecified Plan During the visit, discussed the importance of medication adherence, particularly with Plavix, to prevent cardiac complications. We reviewed the patient's respiratory symptoms and the resolution of pneumonia, emphasizing the need for ongoing monitoring. Addressed the patient's concerns about cardiac rehabilitation, explaining its potential benefits despite past experiences. CT chest 08/2024 revealed nodular configuration, malignancy can not be excluded with recommendation for follow-up chest CT in 3 months which is scheduled in December. At this time patient with significant post nasal drip likely contributing to cough, encouraged patient to restart nasal spray as she has discontinued. She continues with dyspnea despite undergoing cardiac cath. Prior PFT did not reveal any obstructive defect however noted of decreased DLCO possibly related to pulmonary edema, discussed importance of adhering to lasix regimen. She has a h/o anemia recent H/H decreased and per PCP last note is being referred to Hematology. She is aware to call if symptoms do not change or worsen. All questions were answered and patient is in agreement of plan. Will follow up to review results or chest CT or sooner if needed. Orders: Orders NT Pro B Type Natriuretic Pept Today R06.09 - Other forms of dyspnea Complete Blood Count Auto Diff Today R06.09 - Other forms of dyspnea Coding Diagnoses Dyspnea R06.00 Personal history of tobacco use Z87.891 Decreased diffusion capacity R94.2 Anemia, unspecified type D64.9 Anemia type: unspecified type
--- NOTE | 2025-01-18 14:32 | MHC.OFFVIS ---
Vital Signs 01/18/25 14:32 Height 5 ft 3 in Weight 121 lb 8 oz BMI 21.5 BP 158/62 H Blood Pressure Location Lt brachial Position Sitting Pulse 67 Pulse Source Pulse Oximeter Pulse Oximetry (%) 98 Oxygen Delivery Method Room Air Intake Visit Reasons: Continued sob/ productive cough Allergies No Known Allergies Allergy (Verified 01/18/25 14:36) HPI HPI Continued sob/ productive cough: Details: Fabio sexton pleasant 84 year old, former 20 pack year smoker, quit 30+ years ago with underlying CAD s/p coronary stenting x 2, HTN and HLD. Prior PFT demonstrated normal spirometry with abnormal decrease in DLCO suggestive of pulmonary edema. Since the last visit patient was treated for pneumonia, currently on the last day of Doxycycline with improvements in cough, no longer green in color, denies chest congestion, fever or chills. Unfortunately patient continues with dyspnea on exertion and has noticed an increase in BLE swelling over the last week. She has upcoming echo scheduled in February. She does admit to missing doses of HCTZ, previously was recommended by cardiology if compliant with HCTZ and continues to appear fluid overloaded would switch to lasix. Patient also with history of anemia last H/H 11/24, will be following with hematology in the near future. [facility] Medical History Allergic rhinitis HTN (hypertension) CAD (coronary artery disease) Bilateral carotid artery disease Hyperlipidemia Surgical History Stented coronary artery Hx of cardiac cath Hx of endoscopy Hx of colonoscopy Hx of eye surgery Hx of foot surgery Family History Mother CVD (cardiovascular disease) Social History Housing: House Alcohol intake: current Alcohol intake frequency: a few times a week Patient Tobacco Use Status: Former Tobacco user Years Smoked: 40 +/- e-Cigarette/Vaping Use: Never Used Second Hand Smoke Exposure: No service: No Current occupational status: retired Cognitive needs: No Hearing needs: No Vision needs: No Review of Systems Const Denies chills, Denies excessive sweating, Denies fever(s), Denies headache(s) and Denies night sweats Eyes Denies dry eyes, Denies irritation and Denies itchy eyes ENT Reports Normal hearing present, Denies headache(s), Denies nasal congestion, Denies nasal discharge, Denies post nasal drip and Denies sore throat Card Denies chest pain, Denies chest pain at rest, Denies chest pain with activity, Denies claudication, Reports leg edema, Reports dyspnea on exertion, Denies orthopnea and Denies paroxysmal nocturnal dyspnea Resp Denies change in phlegm color, Denies chest congestion, Reports cough, Denies hemoptysis, Denies excessive phlegm production, Denies pain on inspiration, Denies pain with cough, Reports dyspnea on exertion, Denies stridor and Denies wheezing Musc Denies myalgias Neuro Reports Normal hearing present and Denies headache(s) Endo Denies excessive sweating Gil/Lymph Denies lymphadenopathy Aller/Immun Denies itchy eyes and Denies wheezing Physical Exam Vital Signs: Last Vital Signs Pulse 67 01/18/25 14:32 BP 158/62 H 01/18/25 14:32 Pulse Ox 98 01/18/25 14:32 Oxygen Delivery Method Room Air 01/18/25 14:32 BMI result Body Mass Index 21.5 Const General: cooperative, comfortable, no acute distress and alert Orientation/consciousness: patient oriented x3 Limitations: ambulation with cane (walking stick) HEENT Head: Yes normal to inspection, Yes normocephalic and Yes atraumatic Ears: hearing grossly normal bilaterally and external ears normal Eyes General: appearance normal, both eyes and all related structures Eyelids: Yes eyelids normal Sclerae: sclerae normal EOM: EOMs intact bilaterally Neck Neck: Yes normal visual inspection and Yes no lymphadenopathy Lymphatic: no lymphadenopathy noted Chest Chest palpation & inspection: normal inspection of the chest Resp Effort & Inspection: normal respiratory effort, able to speak in complete sentences, no audible wheezes, no cough, no stridor, not tachypneic, no tripod positioning and no use of accessory muscles Auscultation: clear to auscultation bilaterally Cardio Jugular venous distension: no JVD Rate: regular rate Rhythm: regular rhythm Skin Other: warm, dry General skin exam: no rashes or lesions noted Neuro General: patient oriented x3 Cranial nerves: Yes Normal hearing present Cognition (Neuro): normal cognition Extrem Other: 2+ pitting edema Psych Appearance: grossly normal and well kempt Speech and movement: Normal speech and movement present and Clear speech present Affect: normal affect Attitude: cooperative Thought process: Normal thought process present Thought content: Normal thought content present Insight: Good insight present (Psych) Judgement: Good judgement present (Psych) Results Reviewed Results Reviewed: [address] [address] [address] Scan Report Signed Patient: Fabio Anaya MR#: [id number] : 1940 Acct:[id number] Age/Sex: 84 / F ADM Date: 01/11/25 Loc: HO.CT Attending Dr: Yumi Gilbert NP Ordering Physician: Yumi Gilbert NP Date of Service: 01/11/25 Procedure(s): CT chest wo IV con Accession Number(s): [id number] cc: Felicita Odonnell MD; Yumi Gilbert NP~ Report Number: [id number]: Total DLP = 89.00 mGy-cm Reason for Exam: R91.1 - Solitary pulmonary nodule EXAMINATION: CT CHEST WITHOUT CONTRAST CLINICAL INFORMATION: R 91.1. Solitary pulmonary nodule. COMPARISON: September 03, 2024 TECHNIQUE: Multidetector volumetric CT imaging of the chest was done. Axial MIP volume rendering provided. Sagittal and coronal reformatted images were obtained. This CT examination was performed using dose optimization techniques as appropriate, variously including the following: *Automated exposure control *Adjustment of mA and/or kV according to patient size (this includes techniques or standardized protocols for targeted exams where dose is matched to indication/reason for exam; i.e. extremities or head) *Use of iterative reconstruction technique. DLP: 89.0 mGy centimeter. FINDINGS: PYTHON CONSULTANT: Hyperinflated lungs. Scoliosis, thoracolumbar spine. Cardiomediastinal silhouette size is normal. Patient's large body habitus. Upper extremities at both sides of the head. LUNGS: Bilateral, multiple, randomly distributed, round and less than 4 mm noncalcified pulmonary nodules. Tree in bud pattern right lung involving mostly the right upper lung lobe. Cluster of groundglass nodule in the right lung apex is no longer present. No gross bronchiectasis. No gross honeycombing. Subtle pulmonary mosaic pattern. Hyperinflated lungs. MEDIASTINUM: No gross mediastinal lymphadenopathy. Calcified plaques in the thoracic aortic arch wall descending thoracic and its main branches. No aneurysm, thoracic aorta. Heart is small. Calcified plaque in the mitral valve. No pericardial effusion. No pneumomediastinum. No hemopericardium. Thyroid gland is not enlarged. CORONARY ARTERY CALCIFICATION: Calcified plaques. PLEURA: No pleural effusion. No pneumothorax. No calcified pleural plaques. AXILLA: No specific prominent axillary lymph nodes. UPPER ABDOMEN: Moderate to large volume hiatal hernia. Soft tissue fullness without nodular lesions in the adrenal glands. Calcified plaques in the abdominal aorta its main branches and the splenic artery. OSSEOUS STRUCTURES: S-shaped curvature thoracolumbar spine. Multilevel spondylosis without acute fracture or listhesis. No acute fracture in the sternum. No gross acute rib fracture. Degenerative changes in the shoulders. CT/CT chest wo IV con IMPRESSION: Multiple less than 4 mm solid pulmonary nodules. Recommend a 6-12 months follow-up. Concerning acute airspace disease right lung. Coronary artery disease and atherosclerosis disease. Calcified mitral valve. Hiatal hernia. Fleischner guidelines were followed. Electronically signed by: Rodolfo Yusuf MD 01/11/2025 01:39 PM EDT RP Dictated By: Rodolfo Albert MD Signed By: <Electronically signed by Rodolfo Gray MD in OV> 01/11/25 1339 DD/ 1253 Assessment & Plan Assessment & Plan (1) Dyspnea: Code(s): R06.00 - Dyspnea, unspecified Category: Medical (2) Multiple pulmonary nodules: Code(s): R91.8 - Other nonspecific abnormal finding of lung field Category: Medical (3) Personal history of tobacco use: Code(s): Z87.891 - Personal history of nicotine dependence Category: Social Hx (4) Decreased diffusion capacity: Code(s): R94.2 - Abnormal results of pulmonary function studies Category: Medical (5) Anemia: Code(s): D64.9 - Anemia, unspecified Category: Medical Qualifiers: Anemia type: unspecified type Qualified Code(s): D64.9 - Anemia, unspecified Plan During the visit, discussed the importance of medication adherence, particularly with HCTZ, to address fluid overload in addition to completing Doxycycline. Prior PFT suggestive of pulmonary edema with isolated DLCO, otherwise normal spirometry. Likely symptoms multifactorial, will send for CBC to assess anemia, as patient's H/H 11/22 last month and will be scheduled to follow up with Hematology. CT chest 01/11/25 demonstrated bilateral, multiple, randomly distributed, round and less than 4 mm noncalcified pulmonary nodules. Tree in bud pattern right lung involving mostly the right upper lung lobe. Cluster of groundglass nodule in the right lung apex is no longer present. Will repeat after completing course of abx to assess for resolution of RUL. All questions were answered and patient is in agreement of plan. Will follow up to review results or chest CT or sooner if needed. Orders: Orders Complete Blood Count Auto Diff 01/18/25 R06.09 - Other forms of dyspnea CT chest wo IV con 3 Months R93.89 - Abnormal findings on diagnostic imaging of other specified body structures Coding Level of Care Code Est Pt Level 4 (09715) Diagnoses Dyspnea R06.00 Multiple pulmonary nodules R91.8 Personal history of tobacco use Z87.891 Decreased diffusion capacity R94.2 Anemia, unspecified type D64.9 Anemia type: unspecified type
--- OUTSIDE RECORDS SUMMARY | 2025-01-18 16:22 | XMS_ITS | Patient Health Record ---
Author Organization [facility] Address [address] [place] [address] Care Team Providers Care Regional Manager Name Role Phone DARIN KAHN PA-C Primary Care Provider Jun Weir Unavailable [phone] Allergies No Known Allergies Reason For Referral [...] Status W/U Status Risk Notes Problem Diarrhea (73912944) Diarrhea (R19.7) Active confirmed Problem Irritable bowel syndrome with diarrhea (156035405) Irritable bowel syndrome with diarrhea (K58.0) Active confirmed Problem Irritable bowel syndrome characterized by constipation (861778896) Irritable bowel syndrome with constipation (K58.9) Active confirmed Problem Altered bowel function (56124479) Change in bowel function (R19.4) Active confirmed Problem Abdominal pain (66088327) Abdominal cramps (R10.9) Active confirmed Problem Periumbilical pain (415020774) Abdominal pain, acute, periumbilical (R10.33) Active confirmed Encounters Encounter Location Date Provider Diagnosis [facility] [address] [place] [address] 09/24/2024 Jun Lee Plan Of Treatment Future Test Test Name Order Date COLONOSCOPY 07/31/2015 Insurance Providers Payer Name Payer Address Payer Phone Subscriber Number Group Number Insured Name Patient Relationship to Insured Coverage Start Date Coverage End Date [employer] Medicare Adv (PPO) [address] [address] [place] [address] [id number] SERA KRAMER Self - patient is the insured Medical (General) History Medical History History ICD Code Denies NE,DM,CVA,Lung disease,renal dise ase Neuropathy in feet Glaucoma Carotid artery disease--followed by Dr. Quan Anxiety Hyperlipidemia Negative screening colonosco py in February of [address] Jimenez, other than diverticulosis GERD--Negative upper endosco py in February [address] Jimenez, other than a described large hiatal hernia Negative colonoscopy with ks in 07/2015. Biopsies revealed some nonspecific inflammation [...]
--- OUTSIDE RECORDS SUMMARY | 2025-01-18 16:22 | XMS_ITS | Clinical Summary ---
Author Organization [facility] Address [address] [facility] [place] [address] Phone Care Team Providers Care Rn Lactation Name Role Phone Felicita Odonnell MD Primary Care Provider [phone] Allergies No known active allergies Medications timoloL [...] Diagnosed Date Atherosclerotic heart diseas e of [place] coronary artery without angina pectoris 10/23/2024 Assessment [...] coronary angiogram. She does follow with a product manager e commerce. Of note she has chronic anemia and [...] and gastroenterology. She also follows with the product manager e commerce who recently completed pulmonary function testing and [...] Description 12/28/2024 1:40 PM EDT Office Visit [facility] Cardiology [facility] [address] [place] [address] Megan Madsen NP Atherosclerosis of [place] coronary artery of [place] heart without angina pectoris (Primary Dx); Bilateral carotid artery disease, unspecified type ([facility] V24) 10/24/2024 Telephone [facility] Cardiology [facility] [address] [place] [address] Uriah Castellanos MD 10/23/2024 3:00 PM EDT Office Visit [facility] Cardiology [facility] [address] [place] [address] Uriah Castellanos MD Atherosclerotic heart disease from Last 3 Months Surgical History Surgery Date Site/Laterality Comments CARDIAC CATHETERIZATION DOEN ON 07/12/[address] [facility] [address] [place] INDICATIONS:Shortness of breath. COLONOSCOPY EYE SURGERY FOOT SURGERY CARDIAC CATH DONE ON 11/30/2024 AT [facility] INDICATIONS:Shortness of breath w/exertion. Medical History [...] Description 03/14/2025 11:00 AM EST Ancillary Procedure [facility] [address] [address] [place] [phone] 04/23/2025 1:30 PM EST Office Visit [facility] [address] [place] [address] Uriah Castellanos MD [address] [place] [address] [address] [place] [address] Health Maintenance Due Date Last [...] EDT Bilateral carotid artery disease, unspecified type ([facility] V24) Atherosclerosis of [place] coronary artery of [place] heart without angina pectoris from Last 3 Months Results * ECG 12 lead (12/31/2024 10:44 AM EDT) 12/28/2024 1:51 PM EDT 12/31/2024 9:35 AM EDT us Megan Madsen SENIOR CLINICAL DATA COORDINATOR ECG ORDERABLES Final Result GEMUSE from Last [address] [place] [id number] [employer] MEDICARE Care Teams Rn Lactation Relationship Specialty Start Date End Date Felicita Odonnell MD [address] [facility] [place] [address] PCP - General Internal Medicine 01/04/25
== END 2025-01-18 15:10 | disposition home or self-care (01) ==
LOC: HO.HPSW 14:30
PROVIDERS: PCP Internal Medicine; Visit Provider Nurse Practitioner Family
DX: R06.00 Dyspnea, unspecified (principal); R91.8 Other nonspecific abnormal finding of lung field; Z87.891 Personal history of nicotine dependence; R94.2 Abnormal results of pulmonary function studies; D64.9 Anemia, unspecified
CPT/HCPCS: 99214

== ENCOUNTER 2025-01-18 15:13 | Outpatient (REF) | payer MEDICARE, SELFPAY ==
[2025-01-18 18:29] LABS: MANUAL DIFF FLAG NO
[2025-01-18 18:30] LABS: Hematocrit 32.9 % (37.0-47.0); Hemoglobin 10.6 g/dl (12.0-16.0); Imm Gran Abs Auto 0.01 X10*3/uL (0.00-0.03); Imm Gran Pct Auto 0.2 % (0.0-0.4); Lymphocytes Absolute Auto 1.3 X10*3/uL (1.2-4.9); Mean Corpuscular HGB Conc 32.2 g/dl (31.0-35.0); Mean Corpuscular Hemoglobin 27.3 pg (27.0-33.0); Mean Corpuscular Volume 84.8 fL (80.0-98.0); NRBC Abs Auto 0.000 X10*3/uL (0.0-0.012); NRBC Pct Auto 0.0 /100WBC (0.0-0.2); Platelet Count 280 X10*3/uL (160-400); Red Blood Count 3.88 X10*6/uL (4.20-5.50); White Blood Count 6.6 X10*3/uL (4.8-10.8)
== END 2025-01-18 15:14 | disposition home or self-care (01) ==
LOC: HO.WFDLDS 15:13
PROVIDERS: Visit Provider Nurse Practitioner Family
DX: R06.09 Other forms of dyspnea (principal)
CPT/HCPCS: 36415; 85025; 99212

== ENCOUNTER 2025-01-22 12:25 | Outpatient (REF) | payer MEDICARE, SELFPAY ==
--- OUTSIDE RECORDS SUMMARY | 2023-09-07 11:20 | XMS_ITS ---
Author Organization [facility] Address [address] [place] [phone] Care Team Providers Care Nissan Sales Consultant Name Role Phone DARIN KAHN PA-C Primary Care Provider Derek Weir Unavailable [phone] REASON FOR VISIT UNSPECIFIED ABDOMINAL PAIN Encounters Encounter Location Date Provider Diagnosis [facility] [address] [facility] [address] [place] [phone] 09/07/2023 Derek Lee Plan Of Treatment No Information Progress Notes * SERA KRAMER GDOB:[birth year] (84 yo F)Acc No.[id number]:09/07/2023 Progress Notes Patient: SERA ANAND Provider: Kay Lee MD :1940 A ge:82 Y S ex:Female Date:09/07/2023 Address:[address] [place], [place] [phone] Pcp:DARIN KAHN PA-C Subjective: * Chief Complaints: [...] MD Date: 0 09/07/2023 Generated for Milvia sweeney/Caroleg/eTransmitting on: 1 03:40 PM EDT
--- OUTSIDE RECORDS SUMMARY | 2024-01-06 09:00 | XMS_ITS ---
Author Organization [facility] Address [address] [place] [phone] Care Team Providers Care Jacket Preparer Name Role Phone DARIN KAHN PA-C Primary Care Provider Derek Weir Unavailable [phone] REASON FOR VISIT abdominal pain Encounters Encounter Location Date Provider Diagnosis [facility] [address] [place] [phone] 01/06/2024 Derek Lee Plan Of Treatment No Information Progress Notes * SERA KRAMER GDOB:[birth year] (84 yo F)Acc No.[id number]:01/06/2024 Progress Notes Patient: SERA ANAND Provider: Kay Lee MD :1940 A ge:83 Y S ex:Female Date:01/06/2024 Address:[address] [place], [place] [id number] Pcp:DARIN KAHN PA-C Subjective: * Chief Complaints: * 1 . Abdominal pain. * Medical History: Objective: * Vitals: Assessment: Plan: * Treatment: * * The named appointment provid er may or may not be the originator of this progress note, and it is not deemed complete until electronically signed by the appointment provider. Sign off status: Pending * Provider: Kay Lee MD Date: Generated for Milvia ng/Fapatg/eTransmitting on: 03:41 PM EDT
--- NOTE | ~2025-01-22 | CT_ITS ---
EXAMINATION: CT ABDOMEN PELVIS WITH IV CONTRAST HISTORY: R63.4 - Abnormal weight loss COMPARISON: Comparison is made with the prior examination dated 01/11/2024. TECHNIQUE: CT scan of the abdomen and pelvis was performed following administration of 85 mL Omnipaque 350 using standard departmental protocol. Coronal and sagittal reformatted images were generated and reviewed. The patient received oral contrast material. This CT exam was performed with one or more of the following dose reduction techniques: automated exposure control, adjustment of the mA and/or kV according to patient size, use of iterative reconstruction technique. DLP: 412 mGy-cm FINDINGS: LOWER CHEST: The visualized lung bases are clear. There is no pleural effusion. CARDIOVASCULATURE: The heart is normal in size. There is no pericardial effusion. LIVER: The liver is normal in size and contour. No liver mass is identified. The hepatic and portal veins are patent. GALLBLADDER / BILE DUCTS: The gallbladder is unremarkable. There is no intra or extrahepatic biliary ductal dilatation. SPLEEN: The spleen is normal in size. No focal splenic lesion is identified. PANCREAS: The pancreas is unremarkable in appearance. ADRENAL GLANDS: Within normal limits. KIDNEYS/RETROPERITONEUM: There is bilateral renal scarring. No renal calculi are identified. There is no hydronephrosis. No renal masses are identified. LYMPH NODES: No abdominal or pelvic lymphadenopathy. VASCULATURE: The abdominal aorta demonstrates atherosclerotic calcification, but is normal in caliber. MESENTERY/PERITONEUM: No free fluid. No masses. There is no free intraperitoneal gas. STOMACH: There is a large hiatal hernia. SMALL BOWEL: The small bowel is normal in caliber. COLON: There is a large amount of stool in the descending and sigmoid colon. There is diverticulosis of the descending and sigmoid colon, without evidence of diverticulitis. APPENDIX: Normal. URINARY BLADDER/PELVIC ORGANS: The urinary bladder is unremarkable. The uterus is unremarkable. There is a 1.7 cm left adnexal cyst without change. BONES / SOFT TISSUES: There is degenerative disc disease of the spine. There is grade I spondylolisthesis of L5 on S1. CT/CT abdomen pelvis w IV con IMPRESSION: 1. Large hiatal hernia. 2. Diverticulosis of the descending and sigmoid colon without evidence of diverticulitis. Large amount of stool in the descending and sigmoid colon. 3. 1.7 cm left adnexal cyst without change. Electronically signed by: Jun Swanson MD 01/22/2025 03:31 PM EDT RP
[2025-01-22 13:24] LABS: Anion Gap 13 (12-20); Blood Urea Nitrogen 27 mg/dL (9-16); Calcium 8.8 mg/dL (8.4-10.2); Carbon Dioxide 23 mmol/L (22-29); Chloride 105 mmol/L (96-108); Estimated Glomerular Filt Rate 54; Potassium 4.3 mmol/L (3.3-5.1); Sodium 137 mmol/L (135-145)
[2025-01-22] MEDS: iohexoL 350 MG/ML 100 ML INFUS..BTL 85 ML IV (15:23)
[2025-01-22] MEDS: Barium Sulfate Oral (Berry) 450 ML ORAL.SUSP 900 ML PO (15:23)
--- OUTSIDE RECORDS SUMMARY | 2025-01-22 15:41 | XMS_ITS | Patient Health Record ---
Author Organization [facility] Address [address] [place] [address] Care Team Providers Care Animal Assistant Name Role Phone DARIN KAHN PA-C Primary Care Provider Jun Weir Unavailable [phone] Allergies No Known Allergies Reason For Referral [...] Status W/U Status Risk Notes Problem Diarrhea (95099785) Diarrhea (R19.7) Active confirmed Problem Irritable bowel syndrome with diarrhea (245035949) Irritable bowel syndrome with diarrhea (K58.0) Active confirmed Problem Irritable bowel syndrome characterized by constipation (213929758) Irritable bowel syndrome with constipation (K58.9) Active confirmed Problem Altered bowel function (12280145) Change in bowel function (R19.4) Active confirmed Problem Abdominal pain (10978593) Abdominal cramps (R10.9) Active confirmed Problem Periumbilical pain (755604177) Abdominal pain, acute, periumbilical (R10.33) Active confirmed Encounters Encounter Location Date Provider Diagnosis [facility] [address] [place] [address] 09/24/2024 Jun Lee Plan Of Treatment Future Test Test Name Order Date COLONOSCOPY 07/31/2015 Insurance Providers Payer Name Payer Address Payer Phone Subscriber Number Group Number Insured Name Patient Relationship to Insured Coverage Start Date Coverage End Date [employer] Medicare Adv (PPO) [address] [address] [place] [address] [id number] SERA KRAMER Self - patient is the insured Medical (General) History Medical History History ICD Code Denies [place],DM,CVA,Lung disease,renal dise ase Neuropathy in feet Glaucoma Carotid artery disease--followed by Dr. Quan Anxiety Hyperlipidemia Negative screening colonosco py in February of [address] Jimenez, other than diverticulosis GERD--Negative upper endosco py in February [address] Jimenez, other than a described large hiatal hernia Negative colonoscopy with mi in 07/2015. Biopsies revealed some nonspecific inflammation [...]
--- OUTSIDE RECORDS SUMMARY | 2025-01-22 15:41 | XMS_ITS | Clinical Summary ---
Author Organization [facility] [employer] [facility] Address [address] [facility] [place] [address] Phone Care Team Providers Care Air Export Operations Agent Name Role Phone Felicita Odonnell MD Primary Care Provider [phone] Allergies No known active allergies Medications timoloL [...] Diagnosed Date Atherosclerotic heart diseas e of [place] coronary artery without angina pectoris 10/23/2024 Assessment [...] coronary angiogram. She does follow with a locker room clerk. Of note she has chronic anemia and [...] and gastroenterology. She also follows with the locker room clerk who recently completed pulmonary function testing and [...] Description 12/28/2024 1:40 PM EDT Office Visit [facility] Cardiology [facility] [address] [place] [address] Megan Madsen NP Atherosclerosis of [place] coronary artery of [place] heart without angina pectoris (Primary Dx); Bilateral carotid artery disease, unspecified type ([facility] V24) 10/24/2024 Telephone [facility] Cardiology [facility] [address] [place] [address] Uriah Castellanos MD 10/23/2024 3:00 PM EDT Office Visit [facility] Card[facility] [address] [place] [address] Uriah Castellanos MD Atherosclerotic heart disease from Last 3 Months Surgical History Surgery Date Site/Laterality Comments CARDIAC CATHETERIZATION DOEN ON 07/12/[address] [facility] [address] [place] INDICATIONS:Shortness of breath. COLONOSCOPY EYE SURGERY FOOT SURGERY CARDIAC CATH DONE ON 11/30/2024 AT [facility] INDICATIONS:Shortness of breath w/exertion. Medical History [...] Description 03/14/2025 11:00 AM EST Ancillary Procedure [facility] [address] [place] [address] 04/23/2025 1:30 PM EST Office Visit [facility] [address] [place] [address] Uriah Castellanos MD [address] [place] [address] [address] [place] [address] Health Maintenance Due Date Last [...] EDT Bilateral carotid artery disease, unspecified type (CMS/[facility] V24) Atherosclerosis of [place] coronary artery of [place] heart without angina pectoris from Last 3 Months Results * ECG 12 lead (12/31/2024 10:44 AM EDT) 12/28/2024 1:51 PM EDT 12/31/2024 9:35 AM EDT us Megan Madsen PLASTIC PROCESS TECHNICIAN ECG ORDERABLES Final Result GEMUSE from Last [address] [place] [id number] [employer] MEDICARE Care Teams Air Export Operations Agent Relationship Specialty Start Date End Date Felicita Odonnell MD [address] [facility] [place] [address] PCP - General Internal Medicine 01/04/25
== END 2025-01-22 12:26 | disposition home or self-care (01) ==
LOC: HO.CT 12:25
PROVIDERS: Nurse Practitioner Family; PCP Internal Medicine; Visit Provider Physician Assistant
DX: R10.30 Lower abdominal pain, unspecified (principal); R63.4 Abnormal weight loss; I25.10 Atherosclerotic heart disease of native coronary artery without angina pectoris; R06.02 Shortness of breath; R93.5 Abnormal findings on diagnostic imaging of other abdominal regions, including retroperitoneum; D64.9 Anemia, unspecified
CPT/HCPCS: 36415; 74177; 80048; Q9967

== ENCOUNTER → 2025-01-22 12:29 | Outpatient (BNV) | payer MEDICARE, SELFPAY | PROVIDERS: PCP Internal Medicine; Visit Provider Radiology Diagnostic Radiology | DX: K44.9 Diaphragmatic hernia without obstruction or gangrene (principal); K57.30 Diverticulosis of large intestine without perforation or abscess without bleeding; N83.202 Unspecified ovarian cyst, left side | CPT/HCPCS: 74177 ==

== ENCOUNTER → 2025-01-29 13:12 | Outpatient (BNV) | payer MEDICARE, SELFPAY | PROVIDERS: PCP Internal Medicine; Referring Provider Internal Medicine; Visit Provider Internal Medicine Medical Oncology | DX: D64.9 Anemia, unspecified (principal) | CPT/HCPCS: 99204 ==

== ENCOUNTER 2025-02-18 12:28 | Outpatient (AMB) | payer MEDICARE, SELFPAY ==
--- NOTE | 2025-02-18 12:31 | A.OFFVIS_ITS ---
Vital Signs 02/18/25 12:32 Height 5 ft 2 in Weight 121 lb 4.068 oz BMI 22.2 BP 184/77 H Blood Pressure Location Lt brachial Position Sitting Pulse 61 Intake Visit Reasons: Anemia and Weight Loss Intake Note: Follow-up for anemia and weight loss Refractory Manager Required: No Allergies No Known Allergies Allergy (Verified 01/29/25 13:39) HPI Comments Details: 83 y.o F who is here for second opinion for constipation. Reports diffuse lower abd pain with cramping since Dec with severe constipation. Prior to this was not having abd sx and regular formed BMs. Has 1 BM per week. Has to strain considerably. No blood in BM. Does not think linzess helping much. Also take fiber and miralax as needed. Had a CT abd/pel that is suggestive of pelvic floor dysfunction. 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 Pt herself does not report any postprandial abd pain or sito phobia. 02/18/25: Here for follow up. Pt reports that reviously bailed out of egd/colo because of her nervousness from recovery from the procedure. However more recently was starting to get increased stable angina. Switched over care to Dr Castellanos and reports had cath done with x2 stents in Nov 2024. On ASA and plavix now. Records N/A. Currently without any abd pain, N,V,D. However endorses shortness of breath which did NOT improve after revascularization. Also sees pulm. Labs reviewed, with small decline in H/H in Nov 2024 but now on PO iron and counts improving. Pt also noted to have naproxen and meloxicam BOTH daily which she was advised to stop. OK for tylenol. She is already on omeprazole 20 daily. [facility] Medical History Allergic rhinitis HTN (hypertension) CAD (coronary artery disease) Bilateral carotid artery disease Hyperlipidemia Surgical History Stented coronary artery Hx of cardiac cath Hx of endoscopy Hx of colonoscopy Hx of eye surgery Hx of foot surgery Family History Mother CVD (cardiovascular disease) Social History Housing: House Alcohol intake: current Alcohol intake frequency: a few times a week Patient Tobacco Use Status: Former Tobacco user Years Smoked: 40 +/- e-Cigarette/Vaping Use: Never Used Second Hand Smoke Exposure: No service: No Current occupational status: retired Cognitive needs: No Hearing needs: No Vision needs: No Review of Systems Const All systems reviewed & are unremarkable except as noted in HPI and below Physical Exam Exam Exam: No apparent distress Nonicteric Abdomen soft, nondistended Alert and oriented x3, uses cane to ambulate Vital Signs: Last Vital Signs Pulse 61 02/18/25 12:32 BP 184/77 H 02/18/25 12:32 BMI result Body Mass Index 22.2 Assessment & Plan Assessment & Plan (1) Weight loss: Code(s): R63.4 - Abnormal weight loss Category: Medical (2) Anemia: Code(s): D64.9 - Anemia, unspecified Category: Medical Qualifiers: Anemia type: unspecified type Qualified Code(s): D64.9 - Anemia, unspecified (3) Dyspnea on minimal exertion: Code(s): R06.09 - Other forms of dyspnea Category: Medical (4) CAD (coronary artery disease): Code(s): I25.10 - Atherosclerotic heart disease of [place] coronary artery without angina pectoris Category: Medical Qualifiers: Coronary Disease-Associated Artery/Lesion type: unspecified vessel or lesion type [place] vs. transplanted heart: unspecified whether [place] or transplanted heart Associated angina: unspecified whether angina present Qualified Code(s): I25.10 - Atherosclerotic heart disease of [place] coronary artery without angina pectoris Plan Pt with iron def anemia and unintentional weight loss who was scheduled for EGD/colo on 04/05/2024 but had canceled. More recently had to cancel her procedure again due to cardiac issues and severe shortness of breath. Now s/p PCI 11/2024 and on DAPT. Reviewed with the pt that will likely need at least 6 months of uninterrupted DAPT before we can julio her bidirectional endoscopy on 5 day plavix hold. Will get records from Dr Castellanos' office, release of info signed by pt. In the meantime, she was advised to minimize NSAID use, tylenol is ok for pain management. Cont omeprazole 20 daily. Pt also with significant constipation and lower abd discomfort. CT reviewed also with fecal loading. Advised daily fiber and miralax. Follow up 3 months Medications: New polyethylene glycol 3350 (Miralax) 17 grams PO DAILY 238 grams 1RF Coding Level of Care Code Est Pt Level 4 (24632) Diagnoses Weight loss R63.4 Anemia, unspecified type D64.9 Anemia type: unspecified type Dyspnea on minimal exertion R06.09 Coronary artery disease, unspecified vessel or lesion type, unspecified whether angina present, unspecified whether [place] or transplanted heart I25.10 Coronary Disease-Associated Artery/Lesion type: unspecified vessel or lesion type [place] vs. transplanted heart: unspecified whether [place] or transplanted heart Associated angina: unspecified whether angina present
[2025-02-18 12:32] VITALS: BP 184/77; PULSE 61; BMI 22.2
== END 2025-02-18 13:23 | disposition home or self-care (01) ==
LOC: HO.HGI 12:29
PROVIDERS: PCP Internal Medicine; Visit Provider Internal Medicine
DX: R63.4 Abnormal weight loss (principal); D64.9 Anemia, unspecified; R06.09 Other forms of dyspnea; I25.10 Atherosclerotic heart disease of native coronary artery without angina pectoris
CPT/HCPCS: 99214

== ENCOUNTER → 2025-02-18 12:28 | Outpatient (BNVA) | payer MEDICARE, SELFPAY | PROVIDERS: PCP Internal Medicine; Visit Provider Internal Medicine | DX: D64.9 Anemia, unspecified (principal); R63.4 Abnormal weight loss; R06.09 Other forms of dyspnea; I25.10 Atherosclerotic heart disease of native coronary artery without angina pectoris; I10 Essential (primary) hypertension | CPT/HCPCS: 99212 ==